=== PATIENT | male | born 1975 | race Caucasian/White ===

== ENCOUNTER → 2023-08-22 13:22 | Outpatient (CLI) | payer OTHER, BC, SELFPAY ==
--- NOTE | ~2023-08-22 | MR_ITS ---
EXAMINATION: MR foot LT wo con DATE: 08/22/2023 14:04 INDICATION: Ganglion cyst with chronic pain. Enlarging lump at the medial left heel TECHNIQUE: Magnetic resonance imaging (MRI) of the left ankle was performed without intravenous contr ast. Sequences included sagittal, coronal, and axial proton-density weighted fast spin echo without a nd with fat saturation. COMPARISON: None. FINDINGS: Medial ankle ligaments: Deep and superficial deltoid ligaments as well as the spring ligament are normal. Lateral ankle ligaments: The anterior and posterior inferior tibiofibular ligaments are normal. The anterior talofibular, calc aneofibular and posterior talofibular ligaments are normal. Tendons: Achilles tendon is normal. The peroneus longus and brevis tendons are normal. The tibialis anterior a nd extensor hallucis longus and extensor digitorum longus tendons are normal. The tibialis posterior, flexor digitorum longus and flexor hallucis longus tendons are normal. Plantar fascia: Mild acute on chronic plantar fasciitis with small plantar calcaneal spur with minimal marrow edema a t the base of the spur and mild thickening with mild increased signal at the proximal aspect of the c entral component of the plantar aponeurosis. Bones/other: Bone alignment is normal. Section at the plantar aspect of the posterior calcaneus there is normal ma rrow signal throughout. No fracture or pathologic marrow replacing process. Joint spaces are normal. There is a 10 x 8 x 6 mm lesion with thin sclerotic peripheral margin and increased signal of less th an simple fluid intensity centrally located in the superficial subcutaneous tissues at the medial rig ht ankle. The absence of intravenous contrast unable to assess whether this lesion is solid or cystic . Fluid: Physiologic amount fluid in the joint spaces. IMPRESSION: 1. 10 x 8 x 6 mm hyperintense lesion in the superficial subcutaneous tissues at the region of concern at the medial left heel. This could be cystic such as epidermoid cyst. Location would be very unusua l for a ganglion cyst. Alternatively this could represent a solid neoplasm such as schwannoma or tino pheral nerve sheath tumor. 2. Mild acute on chronic plantar fasciitis. Reviewed, dictated and finalized at location A. IMPRESSION: 1. 10 x 8 x 6 mm hyperintense lesion in the superficial subcutaneous tissues at the region of concern at the medial left heel. This could be cystic such as ep idermoid cyst. Location would be very unusual for a ganglion cyst. Alternativel y this could represent a solid neoplasm such as schwannoma or peripheral nerve sheath tumor. 2. Mild acute on chronic plantar fasciitis.
== END ==
PROVIDERS: PCP Podiatrist Foot & Ankle Surgery; Visit Provider Podiatrist Foot & Ankle Surgery
DX: M67.472 Ganglion, left ankle and foot (principal); M72.2 Plantar fascial fibromatosis
CPT/HCPCS: 73718

== ENCOUNTER 2025-01-17 07:00 | Outpatient (NON) | payer OTHER, SELFPAY ==
--- OUTSIDE RECORDS SUMMARY | 2025-01-20 09:38 | XMS_ITS | Data Portability ---
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 Plan of Treatment Reminders Order Date Submit Date Provider Last Modified By Organization Details Last Modified Time Details Appointments None recorded. Lab FSH (follicle -stimulat ing hormone), serum 024 [facility] (Lab), [address] [place], [address], 4 08:31:23 lh (luteiniz ing hormone), serum 024 [facility] (Lab), [address] [place], [address], 4 08:31:24 prolactin , serum 024 [facility] (Lab), [address] [place], [address], 4 08:31:24 TSH, serum or plasma 024 [id number] [facility] (Lab), [address] [place], [address], 4 17:32:23 T4, free, serum 024 [id number] [facility] (Lab), [address] [place], [address], 4 17:32:23 lipid panel, serum 024 [facility] (Lab), [address] [place], [address], 4 14:49:31 CMP, serum or plasma [facility] (Lab), [address] [place], [address], 4 14:49:33 magnesium , serum or plasma [id number] (Lab), [address] [place], [address], 4 17:32:23 vitamin B12, serum [id number] (Lab), [address] [place], [address], 4 17:32:23 CBC w/ auto diff [id number] (Lab), [address] [place], [address], 4 17:32:23 PSA, serum or plasma [id number] [place] [address] (Lab), [address] [place], [address], 4 17:32:23 testoster one, free + total, serum [id number] (Lab), [address] [place], [address], 4 17:32:22 Referral None recorded. Procedures None recorded. Surgeries None recorded. Imaging None recorded. Medication Orders None recorded. Patient TargetsNo targets recorded. Patient Instructions Encounter Date Encounter Id Patient Instructions Last Modified By Organization Details Last Modified Time 06/12/2023 [id number] risk assessment* [email or web address] Not availabl e 06/12/2023 15:01:12 INFLUENZA VACCIN [...] SCREENING Not indicated GLUCOSE SCREENING LIPID SCREENING [id number] Not available 06/12/2023 14:50:01 Adult health examination [...] current Rx and follow-up in six months. Not available 06/12/2023 15:00:58 02/07/2024 [id number] Obstructive slee p apnea, GERD, testicular hypofunction [...] have occurred. Not available 02/07/2024 11:55:10 08/07/2024 [id number] risk assessment* [email or web address] Not availabl e 08/07/2024 12:02:22 INFLUENZA VACCIN [...] SCREENING Not indicated GLUCOSE SCREENING LIPID SCREENING [id number] Not available 08/07/2024 11:43:06 Wellness evaluation risk [...] recognize, using context, where substitutions have occurred. [email or web address] Not available 08/07/2024 12:02:10 Reason for Referral [...] cteri stics have been deter mined by [facility]. It has not been clear ed or appro mayi by the FDA. This assay has been valid ated pursu ant to the CLIA regul ation s and is used for clini sofiya purpo ses. Not Available [address], [address], 05/24/2022 15:56:02 05/21/20 22 05/24/2022 TESTO STERO NE, FREE (DIAL YSIS) AND TOTAL ,MS testosterone , free 56.9 pg/mL 35.0-1 55.0 (Note ) This test was devel oped and its kassi tical perfo rmanc e rashi cteri stics have been deter mined by [facility]. It has not been clear ed or appro mayi by the FDA. This assay has been valid ated pursu ant to the CLIA regul ation s and is used for clini osfiya purpo ses. MYA med fusio n [address] [facility] [address] [facility] [address] [phone] Alexi winter MD Not Available [address], [address], 05/24/2022 15:56:02 05/21/20 22 05/24/2022 CBC (INCL UDES DIFF/ PLT) white blood cell count 4.8 thous and/u L 3.8-10 .8 normal Not Available [address], [address], 05/24/2022 15:56:01 05/21/20 22 05/24/2022 CBC (INCL UDES DIFF/ PLT) red blood cell count 5.11 francisco on/uL 4.20-5 .80 normal Not Available [address] [place], [address], 05/24/2022 15:56:01 05/21/20 22 05/24/2022 CBC (INCL UDES DIFF/ PLT) hemoglobin 15.3 g/dL 13.2-1 7.1 normal Not Available [address], [address], 05/24/2022 15:56:01 05/21/20 22 05/24/2022 CBC (INCL UDES DIFF/ PLT) hematocrit 45.3 % 38.5-5 0.0 normal Not Available [address], [address], 05/24/2022 15:56:01 05/21/20 22 05/24/2022 CBC (INCL UDES DIFF/ PLT) MCV 88.6 fL 80.0-1 00.0 normal Not Available [address], [address], 05/24/2022 15:56:01 05/21/20 22 05/24/2022 CBC (INCL UDES DIFF/ PLT) MCH 29.9 pg 27.0-3 3.0 normal Not Available [address], [address], 05/24/2022 15:56:01 05/21/20 22 05/24/2022 CBC (INCL UDES DIFF/ PLT) MCHC 33.8 g/dL 32.0-3 6.0 normal Not Available [address], [address], 05/24/2022 15:56:01 05/21/20 22 05/24/2022 CBC (INCL UDES DIFF/ PLT) RDW 13.7 % 11.0-1 5.0 normal Not Available [address], [address], 05/24/2022 15:56:01 05/21/20 22 05/24/2022 CBC (INCL UDES DIFF/ PLT) platelet count 280 thous and/u L 140-40 0 normal Not Available [address], [address], 05/24/2022 15:56:01 05/21/20 22 05/24/2022 CBC (INCL UDES DIFF/ PLT) MPV 10.5 fL 7.5-12 .5 normal Not Available [address], [address], 05/24/2022 15:56:01 05/21/20 22 05/24/2022 CBC (INCL UDES DIFF/ PLT) absolute neutrophils 2606 cells /uL 1500-7 800 normal Not Available [address], [address], 05/24/2022 15:56:01 05/21/20 22 05/24/2022 CBC (INCL UDES DIFF/ PLT) absolute lymphocytes 1546 cells /uL 850-39 00 normal Not Available [address], [address], 05/24/2022 15:56:01 05/21/20 22 05/24/2022 CBC (INCL UDES DIFF/ PLT) absolute monocytes 480 cells /uL 200-95 0 normal Not Available [address], [address], 05/24/2022 15:56:01 05/21/20 22 05/24/2022 CBC (INCL UDES DIFF/ PLT) absolute eosinophils 158 cells /uL 15-500 normal Not Available [address], [address], 05/24/2022 15:56:01 05/21/20 22 05/24/2022 CBC (INCL UDES DIFF/ PLT) absolute basophils 10 cells /uL 0-200 normal Not Available [address], [address], 05/24/2022 15:56:01 05/21/20 22 05/24/2022 CBC (INCL UDES DIFF/ PLT) neutrophils 54.3 % normal Not Available [address], [address], 05/24/2022 15:56:01 05/21/20 22 05/24/2022 CBC (INCL UDES DIFF/ PLT) lymphocytes 32.2 % normal Not Available [address], [address], 05/24/2022 15:56:01 05/21/20 22 05/24/2022 CBC (INCL UDES DIFF/ PLT) monocytes 10.0 % normal Not Available [address], [address], 05/24/2022 15:56:01 05/21/20 22 05/24/2022 CBC (INCL UDES DIFF/ PLT) eosinophils 3.3 % normal Not Available [address], [address], 05/24/2022 15:56:01 05/21/20 22 05/24/2022 CBC (INCL UDES DIFF/ PLT) basophils 0.2 % normal Not Available [address], [address], 05/24/2022 15:56:01 05/21/20 22 05/24/2022 COMPR EHENS [place] METAB OLIC PANEL carbon dioxide 29 mmol/ L 20-32 normal Not Available [address], [address], 05/24/2022 15:56:00 05/21/20 22 05/24/2022 COMPR EHENS [place] METAB OLIC PANEL calcium 9.7 mg/dL 8.6-10 .3 normal Not Available [address], [address], 05/24/2022 15:56:00 05/21/20 22 05/24/2022 COMPR EHENS [place] METAB OLIC PANEL protein, total 7.4 g/dL 6.1-8. 1 normal Not Available [address], [address], 05/24/2022 15:56:00 05/21/20 22 05/24/2022 COMPR EHENS [place] METAB OLIC PANEL albumin 4.3 g/dL 3.6-5. 1 normal Not Available [address], [address], 05/24/2022 15:56:00 05/21/20 22 05/24/2022 COMPR EHENS [place] METAB OLIC PANEL globulin 3.1 g/dL_ (calc ) 1.9-3. 7 normal Not Available [address], [address], 05/24/2022 15:56:00 05/21/20 22 05/24/2022 COMPR EHENS [place] METAB OLIC PANEL albumin/glob ulin ratio 1.4 (calc ) 1.0-2. 5 normal Not Available [address], [address], 05/24/2022 15:56:00 05/21/20 22 05/24/2022 COMPR EHENS [place] METAB OLIC PANEL bilirubin, total 0.6 mg/dL 0.2-1. 2 normal Not Available [address], [address], 05/24/2022 15:56:00 05/21/20 22 05/24/2022 COMPR EHENS [place] METAB OLIC PANEL alkaline phosphatase 94 U/L 36-130 normal Not Available [address], [address], 05/24/2022 15:56:00 05/21/20 22 05/24/2022 COMPR EHENS [place] METAB OLIC PANEL AST 29 U/L 10-40 normal Not Available [address], [address], 05/24/2022 15:56:00 05/21/20 22 05/24/2022 COMPR EHENS [place] METAB OLIC PANEL ALT 44 U/L 9-46 normal Not Available [address], [address], 05/24/2022 15:56:00 05/21/20 22 05/24/2022 COMPR EHENS [place] METAB OLIC PANEL glucose 97 mg/dL 65-99 normal Fasti ng refer ence inter rufina Not Available [address], [address], 05/24/2022 15:56:00 05/21/20 22 05/24/2022 COMPR EHENS [place] METAB OLIC PANEL urea nitrogen (BUN) 20 mg/dL 7-25 normal Not Available [address], [address], 05/24/2022 15:56:00 05/21/20 22 05/24/2022 COMPR EHENS [place] METAB OLIC PANEL creatinine 1.01 mg/dL 0.60-1 .35 normal Not Available [address], [address], 05/24/2022 15:56:00 05/21/20 22 05/24/2022 COMPR EHENS [place] METAB OLIC PANEL eGFR non-afr. greenlandic 88 mL/mi n/1.7 3m2 > or = 60 normal Not Available [address], [address], 05/24/2022 15:56:00 05/21/20 22 05/24/2022 COMPR EHENS [place] METAB OLIC PANEL eGFR 101 mL/mi n/1.7 3m2 > or = 60 normal Not Available [address], [address], 05/24/2022 15:56:00 05/21/20 22 05/24/2022 COMPR EHENS [place] METAB OLIC PANEL BUN/creatini ne ratio not applic able (calc ) 6-22 Not Available [address], [address], 05/24/2022 15:56:00 05/21/20 22 05/24/2022 COMPR EHENS [place] METAB OLIC PANEL sodium 138 mmol/ L 135-14 6 normal Not Available [address], [address], 05/24/2022 15:56:00 05/21/20 22 05/24/2022 COMPR EHENS [place] METAB OLIC PANEL potassium 4.8 mmol/ L 3.5-5. 3 normal Not Available [address], [address], 05/24/2022 15:56:00 05/21/20 22 05/24/2022 COMPR EHENS [place] METAB OLIC PANEL chloride 102 mmol/ L 98-110 normal Not Available [address], [address], 05/24/2022 15:56:00 05/21/20 22 05/24/2022 LIPID PANEL , STAND JEANNETTE cholesterol, total 211 mg/dL <200 high Not Available [address], [address], 05/24/2022 15:55:59 05/21/20 22 05/24/2022 LIPID PANEL , STAND JEANNETTE HDL cholesterol 51 mg/dL > or = 40 normal Not Available [address], [address], 05/24/2022 15:55:59 05/21/20 22 05/24/2022 LIPID PANEL , STAND JEANNETTE triglyceride s 328 mg/dL <150 high If a non-f astin g speci men was colle cted, consi pearl repea t trigl yceri de testi ng on a fasti ng speci men if clini laci indic ated. Jareth díaz et al. J. of Clin. Lipid ol. 2015; 9:129 -169. Not Available [facility] [address] [place], [address], 05/24/2022 15:55:59 05/21/20 22 05/24/2022 LIPID PANEL [...] 2061- 2068 (http ://ed ucati on.Qu Nael [employer]. com/f aq/FA Q164) Not Available [facility] [address] [place], [address], 05/24/2022 15:55:59 05/21/20 22 05/24/2022 LIPID PANEL , STAND JEANNETTE chol/HDLC ratio 4.1 (calc ) <5.0 normal Not Available [facility] [address] [place], [address], 05/24/2022 15:55:59 05/21/20 22 05/24/2022 LIPID PANEL , STAND JEANNETTE non HDL cholesterol 160 mg/dL _(sofiya c) <130 high For patie nts with diabe viola plus 1 major ASCVD risk facto r, treat ing to a non-H DL-C goal of <100 mg/dL (LDL- C of <70 mg/dL ) is consi dered a thera pesandrai c optio n. Not Available [facility] [address] [place], [address], 05/24/2022 15:55:59 12/08/19 23 12/11/2022 TESTO STERO [...] e refer to https ://ed ucati on.qu Metricly. Habbits/f aq/FA Q113 (This link is being provi ded for [...] sofiya purpo ses. Not Available [facility] [address] [address], [place], [address], 12/11/2022 15:36:54 12/08/19 23 12/11/2022 TESTO STERO [...] purpo ses. MDF med fusvikki n [address] [facility] [address] [place] [address] [phone] Alexi winter MD Not Available Immediately [address], [address], 12/11/2022 15:36:54 12/08/19 23 12/11/2022 PSA, TOTAL [...] This test was perfo rmed using the [employer] chemi lumin escen t metho d. Value s obtai lynn from diffe rent assay metho ds canno t be used inter clark eably . PSA level s, regar dless of value , shoul d not be inter prete d as absol [place] evide nce of the prese nce or absen ce of disea se. Not Available [address], [address], 12/11/2022 15:36:53 12/08/19 23 12/11/2022 VITAM IN B12 vitamin B12 683 pg/mL 200-11 00 normal Not Available [facility] [address] [place], [address], 12/11/2022 15:36:53 12/08/19 23 12/11/2022 CBC (INCL UDES DIFF/ PLT) white blood cell count 5.2 thous and/u L 3.8-10 .8 normal Not Available [address] [place], [address], 12/11/2022 15:36:52 12/08/19 23 12/11/2022 CBC (INCL UDES DIFF/ PLT) red blood cell count 5.16 francisco on/uL 4.20-5 .80 normal Not Available [address], [address], 12/11/2022 15:36:52 12/08/19 23 12/11/2022 CBC (INCL UDES DIFF/ PLT) hemoglobin 15.4 g/dL 13.2-1 7.1 normal Not Available [address], [address], 12/11/2022 15:36:52 12/08/19 23 12/11/2022 CBC (INCL UDES DIFF/ PLT) hematocrit 46.8 % 38.5-5 0.0 normal Not Available [address], [address], 12/11/2022 15:36:52 12/08/19 23 12/11/2022 CBC (INCL UDES DIFF/ PLT) MCV 90.7 fL 80.0-1 00.0 normal Not Available [address], [address], 12/11/2022 15:36:52 12/08/19 23 12/11/2022 CBC (INCL UDES DIFF/ PLT) MCH 29.8 pg 27.0-3 3.0 normal Not Available [address], [address], 12/11/2022 15:36:52 12/08/19 23 12/11/2022 CBC (INCL UDES DIFF/ PLT) MCHC 32.9 g/dL 32.0-3 6.0 normal Not Available [address], [address], 12/11/2022 15:36:52 12/08/19 23 12/11/2022 CBC (INCL UDES DIFF/ PLT) RDW 13.3 % 11.0-1 5.0 normal Not Available [address], [place], [address], 12/11/2022 15:36:52 12/08/19 23 12/11/2022 CBC (INCL UDES DIFF/ PLT) platelet count 290 thous and/u L 140-40 0 normal Not Available [address], [address], 12/11/2022 15:36:52 12/08/19 23 12/11/2022 CBC (INCL UDES DIFF/ PLT) MPV 10.9 fL 7.5-12 .5 normal Not Available [facility] [address], [address], 12/11/2022 15:36:52 12/08/19 23 12/11/2022 CBC (INCL UDES DIFF/ PLT) absolute neutrophils 2538 cells /uL 1500-7 800 normal Not Available [address], [address], 12/11/2022 15:36:52 12/08/19 23 12/11/2022 CBC (INCL UDES DIFF/ PLT) absolute lymphocytes 1997 cells /uL 850-39 00 normal Not Available [address], [address], 12/11/2022 15:36:52 12/08/19 23 12/11/2022 CBC (INCL UDES DIFF/ PLT) absolute monocytes 567 cells /uL 200-95 0 normal Not Available [address], [address], 12/11/2022 15:36:52 12/08/19 23 12/11/2022 CBC (INCL UDES DIFF/ PLT) absolute eosinophils 88 cells /uL 15-500 normal Not Available [address], [address], 12/11/2022 15:36:52 12/08/19 23 12/11/2022 CBC (INCL UDES DIFF/ PLT) absolute basophils 10 cells /uL 0-200 normal Not Available [address], [address], 12/11/2022 15:36:52 12/08/19 23 12/11/2022 CBC (INCL UDES DIFF/ PLT) neutrophils 48.8 % normal Not Available [address], [address], 12/11/2022 15:36:52 12/08/19 23 12/11/2022 CBC (INCL UDES DIFF/ PLT) lymphocytes 38.4 % normal Not Available [address], [address], 12/11/2022 15:36:52 12/08/19 23 12/11/2022 CBC (INCL UDES DIFF/ PLT) monocytes 10.9 % normal Not Available [address], [address], 12/11/2022 15:36:52 12/08/19 23 12/11/2022 CBC (INCL UDES DIFF/ PLT) eosinophils 1.7 % normal Not Available [address], [address], 12/11/2022 15:36:52 12/08/19 23 12/11/2022 CBC (INCL UDES DIFF/ PLT) basophils 0.2 % normal Not Available [address], [address], 12/11/2022 15:36:52 12/08/19 23 12/11/2022 COMPR EHENS [place] METAB OLIC PANEL glucose 98 mg/dL 65-99 normal Fasti ng refer ence inter rufina Not Available [address], [address], 12/11/2022 15:36:52 12/08/19 23 12/11/2022 COMPR EHENS [place] METAB OLIC PANEL urea nitrogen (BUN) 19 mg/dL 7-25 normal Not Available [address] [address] [place], [address], 12/11/2022 15:36:52 12/08/19 23 12/11/2022 COMPR EHENS [place] METAB OLIC PANEL creatinine 1.01 mg/dL 0.60-1 .29 normal Not Available [address] [address] [place], [address], 12/11/2022 15:36:52 12/08/19 23 12/11/2022 COMPR EHENS [...] kdoqi /gfr% 5Fcal culat or Not Available [address] [address] [place], [address], 12/11/2022 15:36:52 12/08/19 23 12/11/2022 COMPR EHENS [place] METAB OLIC PANEL BUN/creatini ne ratio not applic able (calc ) 6-22 Not Available [address], [address], 12/11/2022 15:36:52 12/08/19 23 12/11/2022 COMPR EHENS [place] METAB OLIC PANEL sodium 139 mmol/ L 135-14 6 normal Not Available [address], [address], 12/11/2022 15:36:52 12/08/19 23 12/11/2022 COMPR EHENS [place] METAB OLIC PANEL potassium 4.7 mmol/ L 3.5-5. 3 normal Not Available [address] [address] [place], [address], 12/11/2022 15:36:52 12/08/19 23 12/11/2022 COMPR EHENS [place] METAB OLIC PANEL chloride 104 mmol/ L 98-110 normal Not Available [address], [address], 12/11/2022 15:36:52 12/08/19 23 12/11/2022 COMPR EHENS [place] METAB OLIC PANEL carbon dioxide 25 mmol/ L 20-32 normal Not Available [address], [place], [address], 12/11/2022 15:36:52 12/08/19 23 12/11/2022 COMPR EHENS [place] METAB OLIC PANEL calcium 10.2 mg/dL 8.6-10 .3 normal Not Available [address], [address], 12/11/2022 15:36:52 12/08/19 23 12/11/2022 COMPR EHENS [place] METAB OLIC PANEL protein, total 7.5 g/dL 6.1-8. 1 normal Not Available [address], [address], 12/11/2022 15:36:52 12/08/19 23 12/11/2022 COMPR EHENS [place] METAB OLIC PANEL albumin 4.6 g/dL 3.6-5. 1 normal Not Available [address], [address], 12/11/2022 15:36:52 12/08/19 23 12/11/2022 COMPR EHENS [place] METAB OLIC PANEL globulin 2.9 g/dL_ (calc ) 1.9-3. 7 normal Not Available [address], [address], 12/11/2022 15:36:52 12/08/19 23 12/11/2022 COMPR EHENS [place] METAB OLIC PANEL albumin/glob ulin ratio 1.6 (calc ) 1.0-2. 5 normal Not Available [address], [address], 12/11/2022 15:36:52 12/08/19 23 12/11/2022 COMPR EHENS [place] METAB OLIC PANEL bilirubin, total 0.5 mg/dL 0.2-1. 2 normal Not Available [address], [address], 12/11/2022 15:36:52 12/08/19 23 12/11/2022 COMPR EHENS [place] METAB OLIC PANEL alkaline phosphatase 95 U/L 36-130 normal Not Available [address], [address], 12/11/2022 15:36:52 12/08/19 23 12/11/2022 COMPR EHENS [place] METAB OLIC PANEL AST 34 U/L 10-40 normal Not Available [address], [address], 12/11/2022 15:36:52 12/08/19 23 12/11/2022 COMPR EHENS [place] METAB OLIC PANEL ALT 55 U/L 9-46 high Not Available [address], [address], 12/11/2022 15:36:52 12/08/19 23 12/11/2022 MAGNE SIUM magnesium 2.2 mg/dL 1.5-2. 5 normal Not Available [address], [address], 12/11/2022 15:36:51 12/08/19 23 12/11/2022 LIPID PANEL , STAND JEANNETTE cholesterol, total 204 mg/dL <200 high Not Available [address], [address], 12/11/2022 15:36:51 12/08/19 23 12/11/2022 LIPID PANEL , STAND JEANNETTE HDL cholesterol 52 mg/dL > or = 40 normal Not Available [address], [address], 12/11/2022 15:36:51 12/08/19 23 12/11/2022 LIPID PANEL , STAND JEANNETTE triglyceride s 248 mg/dL <150 high If a non-f astin g speci men was colle cted, consi pearl repea t trigl yceri de testi ng on a fasti ng speci men if clini laci indic ated. Jareth díaz et al. J. of Clin. Lipid ol. 2015; 9:129 -169. Not Available [address], [address], 12/11/2022 15:36:51 12/08/19 23 12/11/2022 LIPID PANEL [...] 2061- 2068 (http ://ed ucati on.Qu estDi LearnBo[employer]. com/f aq/FA Q164) Not Available [address], [address], 12/11/2022 15:36:51 12/08/19 23 12/11/2022 LIPID PANEL , STAND JEANNETTE chol/HDLC ratio 3.9 (calc ) <5.0 normal Not Available [address], [address], 12/11/2022 15:36:51 12/08/19 23 12/11/2022 LIPID PANEL , STAND JEANNETTE non HDL cholesterol 152 mg/dL _(sofiya c) <130 high For patie nts with diabe viola plus 1 major ASCVD risk facto r, treat ing to a non-H DL-C goal of <100 mg/dL (LDL- C of <70 mg/dL ) is consi dered a thera peuti c optio n. Not Available [address], [address], 12/11/2022 15:36:51 02/19/20 24 02/22/2024 LIPID PANEL , STAND JEANNETTE cholesterol, total 190 mg/dL <200 normal Not Available [address], [address], 02/22/2024 14:49:30 02/19/20 24 02/22/2024 LIPID PANEL , STAND JEANNETTE HDL cholesterol 56 mg/dL > or = 40 normal Not Available [address], [address], 02/22/2024 14:49:30 02/19/20 24 02/22/2024 LIPID PANEL , STAND JEANNETTE triglyceride s 140 mg/dL <150 normal Not Available [address], [address], 02/22/2024 14:49:30 02/19/20 24 02/22/2024 LIPID PANEL , STAND JEANNETTE LDL-choleste rol 109 mg/dL _(sofiya c) high Refer ence range : <100 Ana able range <100 mg/dL for prima ry preve ntion ; <70 mg/dL for patie nts with CHD or diabe tic patie nts with > or = 2 CHD risk facto rs. LDL-C is now calcu lated using the [facility] [employer] kins sophia tompkins n, which is a valid ated novel metho d provi ding wally r accur acy than the Fried nelly equat ion in the estim ation of LDL-C . Virgie n SS et al. IDANIA. 2013; 310(2 9): 2061- 2068 (http ://ed ucati on.Annelise Nayak daisykellie [employer]. com/f aq/FA Q164) Not Available [address], [address], 02/22/2024 14:49:30 02/19/20 24 02/22/2024 LIPID PANEL , STAND JEANNETTE chol/HDLC ratio 3.4 (calc ) <5.0 normal Not Available [address], [address], 02/22/2024 14:49:30 02/19/20 24 02/22/2024 LIPID PANEL , STAND JEANNETTE non HDL cholesterol 134 mg/dL _(sofiya c) <130 high For patie nts with diabe viola plus 1 major ASCVD risk facto r, treat ing to a non-H DL-C goal of <100 mg/dL (LDL- C of <70 mg/dL ) is consi alhajid a lauren gonzales optio n. Not Available [address], [address], 02/22/2024 14:49:30 02/19/20 24 02/22/2024 MAGNE SIUM magnesium 2.1 mg/dL 1.5-2. 5 normal Not Available [address] [address] [place], [address], 02/22/2024 14:49:32 02/19/20 24 02/22/2024 COMPR EHENS [place] METAB OLIC PANEL glucose 96 mg/dL 65-99 normal Fasti ng refer ence inter rufina Not Available [address] [address] [place], [address], 02/22/2024 14:49:33 02/19/20 24 02/22/2024 COMPR EHENS [place] METAB OLIC PANEL urea nitrogen (BUN) 13 mg/dL 7-25 normal Not Available [address], [address], 02/22/2024 14:49:33 02/19/20 24 02/22/2024 COMPR EHENS [place] [facility] PAN[facility] creatinine 0.92 mg/dL 0.60-1 .29 normal Not Available [address], [address], 02/22/2024 14:49:33 02/19/20 24 02/22/2024 COMPR [facility] [place] [facility] PANEL eGFR 102 mL/mi n/1.7 3m2 > or = 60 normal Not Available [address], [address], 02/22/2024 14:49:33 02/19/20 24 02/22/2024 COMPR [facility] [place] [facility] PANEL BUN/creatini ne ratio SEE NOTE: (calc ) 6-22 Not Repor cara: BUN and Creat inine are withi n refer ence range . Not Available [address], [address], 02/22/2024 14:49:33 02/19/20 24 02/22/2024 COMPR [facility]ENS [place] [facility] PANEL sodium 138 mmol/ L 135-14 6 normal Not Available [address], [address], 02/22/2024 14:49:33 02/19/20 24 02/22/2024 COMPR [facility] [place] [facility] PANEL potassium 4.4 mmol/ L 3.5-5. 3 normal Not Available [address], [address], 02/22/2024 14:49:33 02/19/20 24 02/22/2024 COMPR EHENS [place] [facility] PANEL chloride 105 mmol/ L 98-110 normal Not Available [address] [place], [address], 02/22/2024 14:49:33 02/19/20 24 02/22/2024 COMPR EHENS [place] [facility] PANEL carbon dioxide 22 mmol/ L 20-32 normal Not Available [address], [address], 02/22/2024 14:49:33 02/19/20 24 02/22/2024 COMPR [facility] [place] [facility] PANEL calcium 9.9 mg/dL 8.6-10 .3 normal Not Available [address], [address], 02/22/2024 14:49:33 02/19/20 24 02/22/2024 COMPR [facility] [place] [facility] PAN[facility] protein, total 7.8 g/dL 6.1-8. 1 normal Not Available [address], [address], 02/22/2024 14:49:33 02/19/20 24 02/22/2024 COMPR [facility] [place] [facility] PANEL albumin 4.5 g/dL 3.6-5. 1 normal Not Available [address], [address], 02/22/2024 14:49:33 02/19/20 24 02/22/2024 COMPR [facility] [place] [facility] PANEL globulin 3.3 g/dL_ (calc ) 1.9-3. 7 normal Not Available [address], [address], 02/22/2024 14:49:33 02/19/20 24 02/22/2024 COMPR [facility] [place] [facility] PANEL albumin/glob ulin ratio 1.4 (calc ) 1.0-2. 5 normal Not Available [address], [address], 02/22/2024 14:49:33 02/19/20 24 02/22/2024 COMPR [facility] [place] [facility] PANEL bilirubin, total 0.3 mg/dL 0.2-1. 2 normal Not Available [address], [address], 02/22/2024 14:49:33 02/19/20 24 02/22/2024 COMPR EHENS [place] [facility] PANEL alkaline phosphatase 107 U/L 36-[address] [facility] [email or web address] [address] [address] [place], [address], 02/22/2024 14:49:33 02/19/20 24 02/22/2024 COMPR EHENS [place] METAB OLIC PANEL AST 30 U/L 10-40 normal Not Available [address], [address], 02/22/2024 14:49:33 02/19/20 24 02/22/2024 COMPR EHENS AUTS[place] METAB OLIC PANEL ALT 47 U/L 9-46 high Not Available [address], [address], 02/22/2024 14:49:33 02/19/20 24 02/22/2024 CBC (INCL UDES DIFF/ PLT) white blood cell count 5.8 thous and/u L 3.8-10 .8 normal Not Available [address], [address], 02/22/2024 14:49:34 02/19/20 24 02/22/2024 CBC (INCL UDES DIFF/ PLT) red blood cell count 4.97 francisco on/uL 4.20-5 .80 normal Not Available [address], [address], 02/22/2024 14:49:34 02/19/20 24 02/22/2024 CBC (INCL UDES DIFF/ PLT) hemoglobin 15.2 g/dL 13.2-1 7.1 normal Not Available [address], [address], 02/22/2024 14:49:34 02/19/20 24 02/22/2024 CBC (INCL UDES DIFF/ PLT) hematocrit 46.2 % 38.5-5 0.0 normal Not Available [address], [address], 02/22/2024 14:49:34 02/19/20 24 02/22/2024 CBC (INCL UDES DIFF/ PLT) MCV 93.0 fL 80.0-1 00.0 normal Not Available [address], [address], 02/22/2024 14:49:34 02/19/20 24 02/22/2024 CBC (INCL UDES DIFF/ PLT) MCH 30.6 pg 27.0-3 3.0 normal Not Available [address], [address], 02/22/2024 14:49:34 02/19/20 24 02/22/2024 CBC (INCL UDES DIFF/ PLT) MCHC 32.9 g/dL 32.0-3 6.0 normal Not Available [address], [address], 02/22/2024 14:49:34 02/19/20 24 02/22/2024 CBC (INCL UDES DIFF/ PLT) RDW 14.2 % 11.0-1 5.0 normal Not Available [address], [address], 02/22/2024 14:49:34 02/19/20 24 02/22/2024 CBC (INCL UDES DIFF/ PLT) platelet count 246 thous and/u L 140-40 0 normal Not Available [address], [address], 02/22/2024 14:49:34 02/19/20 24 02/22/2024 CBC (INCL UDES DIFF/ PLT) MPV 11.0 fL 7.5-12 .5 normal Not Available [address], [address], 02/22/2024 14:49:34 02/19/20 24 02/22/2024 CBC (INCL UDES DIFF/ PLT) absolute neutrophils 3271 cells /uL 1500-7 800 normal Not Available [address], [address], 02/22/2024 14:49:34 02/19/20 24 02/22/2024 CBC (INCL UDES DIFF/ PLT) absolute lymphocytes 1827 cells /uL 850-39 00 normal Not Available [address], [address], 02/22/2024 14:49:34 02/19/20 24 02/22/2024 CBC (INCL UDES DIFF/ PLT) absolute monocytes 539 cells /uL 200-95 0 normal Not Available [address], [address], 02/22/2024 14:49:34 02/19/20 24 02/22/2024 CBC (INCL UDES DIFF/ PLT) absolute eosinophils 151 cells /uL 15-500 normal Not Available [address], [address], 02/22/2024 14:49:34 02/19/20 24 02/22/2024 CBC (INCL UDES DIFF/ PLT) absolute basophils 12 cells /uL 0-200 normal Not Available [address], [address], 02/22/2024 14:49:34 02/19/20 24 02/22/2024 CBC (INCL UDES DIFF/ PLT) neutrophils 56.4 % normal Not Available [address] [place], [address], 02/22/2024 14:49:34 02/19/20 24 02/22/2024 CBC (INCL UDES DIFF/ PLT) lymphocytes 31.5 % normal Not Available [address], [address], 02/22/2024 14:49:34 02/19/20 24 02/22/2024 CBC (INCL UDES DIFF/ PLT) monocytes 9.3 % normal Not Available [facility] [address], [address], 02/22/2024 14:49:34 02/19/20 24 02/22/2024 CBC (INCL UDES DIFF/ PLT) eosinophils 2.6 % normal Not Available [address], [address], 02/22/2024 14:49:34 02/19/20 24 02/22/2024 CBC (INCL UDES DIFF/ PLT) basophils 0.2 % normal Not Available [address], [address], 02/22/2024 14:49:34 02/19/20 24 02/22/2024 T4, FREE T4, free 0.8 NG/dL 0.8-1. 8 normal Not Available [address], [address], 02/22/2024 14:49:35 02/19/20 24 02/22/2024 VITAM IN B12 vitamin B12 451 pg/mL 200-11 00 normal Not Available [address], [address], 02/22/2024 14:49:36 02/19/20 24 02/22/2024 PSA, TOTAL [...] not be inter prete d as absol [place] evide nce of the prese nce or absen ce of disea se. Not Available [facility] [address] [address] [place], [address], 02/22/2024 14:49:37 02/19/20 24 02/22/2024 TSH TSH 1.16 mIU/L 0.40-4 .50 normal Not Available [facility] [address] [address] [place], [address], 02/22/2024 14:49:38 02/19/20 24 02/22/2024 TESTO STERO [...] refer to https ://ed ucati on.qu nikitadi [employer]. com/f aq/FA V725 (This link is being provi ded for infor mary nal/e ducat ional purpo ses only. ) (Note ) This test was devel oped and its kassi tical perfo rmanc e rashi cteri stics have been deter mined by [employer]. It has not been clear ed or appro mayi by the FDA. This assay has been valid ated pursu ant to the CLIA regul ation s and is used for clini sofiya purpo ses. Not Available [address], [address], 02/22/2024 14:49:39 02/19/20 24 02/22/2024 TESTO STERO NE, FREE (DIAL YSIS) AND TOTAL ,MS testosterone , free 37 pg/mL 35.0-1 55.0 (Note ) This test was devel oped and its kassi tical perfo rmanc e rashi cteri stics have been deter mined by [employer]. It has not been clear ed or appro mayi by the FDA. This assay has been valid ated pursu ant to the CLIA regul ation s and is used for clini sofiya purpo ses. MDF med fusio n [address] [facility] [address] [facility] [address] [phone] [facility] zoey Gupta MD, PhD Not Available Immediately [address] [address] [place], [address], 02/22/2024 14:49:39 08/07/20 24 08/08/2024 FSH FSH 5.1 mIU/m L 1.4-12 .8 normal Not Available Immediately [address] [place], [address], 08/08/2024 08:31:23 08/07/20 24 08/08/2024 LH LH 2.8 mIU/m L 1.5-9. 3 normal Not Available Immediately [facility] [address] [address] [place], [address], 08/08/2024 08:31:24 08/07/20 24 08/08/2024 PROLA CTIN prolactin 5.4 NG/mL 2.0-18 .0 normal Not Available Immediately [address] [place], [address], 08/08/2024 08:31:24 11/18/20 24 11/25/2024 BIOAV AILAB LE + FREE TESTO ST % free testosterone (dialysi 2.0 % This test was devel oped and its perfo rmanc e rashi cteri stics deter mined by [employer]. It has not been clear ed or appro mayi by the Food and Drug Admin istra tion. Refer ence Range : Adult Males : 1.5 - 3.2 Not Available [facility] (Lab) [address] [place], [address], 11/25/2024 16:08:51 11/18/20 24 11/25/2024 BIOAV AILAB LE + FREE TESTO ST bioavailable + free testost 126 NG/dL Refer ence Range : Males (50 - 69y): 95 - 285 Perfo rmed at: [facility] [address] [place] [address] Lab Direc tor: Stas emery MD, Phone : [phone] Not Available [facility] (Lab) [address] [place], [address], 11/25/2024 16:08:51 11/18/20 24 11/25/2024 BIOAV AILAB LE + FREE TESTO ST bioavailable testosterone , % 38.8 % Not Available [facility] (Lab) [address] [place], [address], 11/25/2024 16:08:51 11/18/20 24 11/25/2024 BIOAV AILAB LE + FREE TESTO ST free testosterone ,serum 65 pg/mL Refer ence Range : Adult Males : 52 - 280 Not Available [facility] (Lab) [address] [place], [address], 11/25/2024 16:08:51 11/18/20 24 11/25/2024 BIOAV AILAB LE + FREE TESTO ST testosterone ,total 324 NG/dL This test was devel oped and its perfo rmanc e rashi cteri stics deter mined by [employer]. It has not been clear ed or appro mayi by the Food and Drug Admin istra tion. Refer ence Range : Adult Males >18 years 264 - 916 This [employer] r[employer] LC/MS -MS metho d is curre ntly certi fied by the CDC Hormo ne Stand ardiz ation Progr am (HoST ). Adult male refer ence inter rufina is based on a popul ation of healt hy nonob mary males (BMI <3 0) betwe en 19 and 39 years old. Woody díaz, et.al . JCEM 2017, 102;1 161-1 173 PMID: 96851 103. Not Available [facility] ([facility]) [address] [place], [address], 11/25/2024 16:08:51 05/26/20 22 05/25/2022 MRI, cervi sofiya spine , w/o contr ast [facility] [address] [facility] [place] [address] Patien t Name: IVANA HERNANDEZ Access ion #: [id number] Sex: M : 1974 6 Locati [...] cord: Unrema rkable Page 1 of 2 [facility] Patien t Name: IVANA HERNANDEZ Access ion #: [id number] Sex: M : 1974 6 Exam [...] 2:11 PM (CT) Page 2 of 2 [id number] [facility] (Imaging) [address] [place], [address], 01/25/2023 14:17:46 Result Notes None recorded. Problems Name Problem SNOMED Code Status Onset Date Resolution Date Notes Provider Name and Address Organization Details Recorded Time Testicular hypofuncti on 245201253 Active 2018 Not Available [facility] 3 14:14:52 Plantar fasciitis 972738966 Active Not Available [facility] 3 14:14:52 Gastroesop hageal reflux disease 603472093 Active 2018 Not Available [facility] 3 14:14:52 Thoracic back pain 257637322 Active Not Available [facility] 3 14:14:52 Finding of body mass index 656975318 Active 2021 Not Available [facility] 3 14:14:52 Disorder of prostate 88305304 Active 2022 Not Available [facility] 3 14:14:52 Obesity 893259179 Active 2022 Not Available [facility] 3 14:14:52 Cervical radiculopa thy 59474110 Active 2021 Not Available [facility] 3 14:14:52 Stress 65386975 Active Not Available [facility] 3 14:14:52 Obstructiv e sleep apnea syndrome 48523919 Active 2018 Not Available [facility] 3 14:14:53 Fatigue 27711361 Active Not Available [facility] 3 14:14:53 Obese class II 1521950795633 05 Active 2023 Mendoza Gipson MD [address] [facility], [address] [address], [place], [address] , [facility] 4 11:50:01 Hypopituit arism 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 Procedures Surgical History None recorded. Imaging Results Imaging Date Name Status LastModified by Organiz ation Details LastModified Time 05/25/2022 MRI, cervical spine, w/o contrast completed [id number] [facility] (Imaging) [address] [facility], [place], [address], 01/25/2023 14:17:46 Procedure Notes None recorded. Medical [...] % 96 % 94 /min 96.9 [degF] 675956. 78 g 120 mm[Hg] 84 mm[Hg] Not Available [facility] 3 14:14:00 Date Recorded Body mass index (BMI) Body height Oxygen saturation Oxygen saturation in Arterial blood by Pulse oximetry Heart rate Body temperature Body weight Systolic blood pressure Diastolic blood pressure Provider Name and Address Organization Details Last Updated DateTime 3 39.2 kg/m2 170.18 cm 98 % 98 % 74 /min 97.4 [degF] 239198. 09 g 140 mm[Hg] 80 mm[Hg] Not Available [facility] 3 14:14:00 Date Recorded Body height Body mass index (BMI) Body weight Body temperature Heart rate Oxygen saturation Oxygen saturation in Arterial blood by Pulse oximetry Systolic blood pressure Diastolic blood pressure Provider Name and Address Organization Details Last Updated DateTime 3 170.18 cm 37.9 kg/m2 084154. 35 g 96.8 [degF] 98 /min 96 % 96 % 124 mm[Hg] 86 mm[Hg] Maggie Wagner MA [employer] 3 14:37:16 Date Recorded Body height Body mass index (BMI) Body weight Heart rate Body temperature Oxygen saturation Oxygen saturation in Arterial blood by Pulse oximetry Systolic blood pressure Diastolic blood pressure Provider Name and Address Organization Details Last Updated DateTime 4 170.18 cm 39.6 kg/m2 599667. 87 g 100 /min 97 [degF] 96 % 96 % 118 mm[Hg] 80 mm[Hg] Jessica Braswell [employer] [facility] [employer] 4 11:37:37 Date Recorded Body height Body mass index (BMI) Body weight Heart rate Body temperature Oxygen saturation Oxygen saturation in Arterial blood by Pulse oximetry Systolic blood pressure Diastolic blood pressure Provider Name and Address Organization Details Last Updated DateTime 4 170.18 cm 39.5 kg/m2 770073. 28 g 94 /min 97.2 [degF] 97 % 97 % 128 mm[Hg] 88 mm[Hg] LIZETTE Mendez SC [employer] [facility] [employer] [facility] 4 11:36:48 Social History Question Answer Notes LastModified by Organizat ion Details LastModified Time Tobacco Smoking Status Never Smoker Not Available [facility] 01/25/2023 14:11:44 What Is Your Level Of Alcohol Consumption? Occasional [id number] Information not available 01/25/2023 In The 14 Days Before Symptom Onset, Have You Had Close Contact With A Laboratory-confir med COVID-19 While That Case Was Ill? No [id number] Information not available 01/25/2023 In The 14 Days Before Symptom Onset, Have You Had Close Contact With A Person Who Is Under Investigation For COVID-19 While That Person Was Ill? No [id number] Information not available 01/25/2023 Do You Or Have You Ever Used E-cigarettes Or Vape? 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 04/09/2021 [id number] Information not available 01/25/2023 Do You Or Have You Ever Used Smokeless Tobacco? Never Used Smokeless Tobacco [id number] Information not available 01/25/2023 Sex: Unknown Functional [...] ARTERY DISEASE (CAD) N ADDICTION CONCERNS N ENDOMETRIOSIS N Impotence N USE OF BLOOD THINNERS N SKIN [...] APNEA Y CHICKENPOX N INFECTIOUS DISEASE N HEART ARRHYTHMIA N PROSTATE N INSOMNIA N HIGH CHOLESTEROL / HYPERLIPIDEMIA N HYPERTHYROIDISM N EYE PROBLEMS N EDEMA N CHRONIC PAIN SYNDROME N HYPOTHYROIDISM N CAROTID BLOCKAGE N CONSTIPATION N BACK / NECK PROBLEMS N HAVE YOU BEEN HOSPITALIZED OR SEEN IN HEALTH SYSTEM ER IN THE PAST YEAR ? N ATHEROSCLEROSIS N BREAST PROBLEMS N DIALYSIS N ECZEMA N OSTEOPOROSIS N ARTHRITIS N NO SIGNIFICANT PAST MEDICAL HISTORY N APPENDICITIS N DIABETES, TYPE N BAD TEETH N ENT N HEARTBURN / REFLUX Y AUTISM SPECTRUM DISORDER (ASD) N HEPATITIS / LIVER DISEASE N GOUT N SLEEP DISORDER N ALZHEIMER'S DISEASE N Brain Problems N HERPES N DEMENTIA N HEADACHES/MIGRAINES N SEIZURES/EPILEPSY N VASCULAR DISEASE N PACEMAKER N Blood Disorder N DIZZINESS N HEART DISEASE/HEART PROBLEMS N KIDNEY DISEASE N MULTIPLE SCLEROSIS N CARDIAC ARRHYTHMIA N CANCER: SPECIFY N ATRIAL FIBRILLATION N Gall Stones N PULMONARY EMBOLISM N AUTOIMMUNE DISEASE N Immunizations Vaccine Type Date Status Note Provider Nam e and Address Organization Details Recorded Time SARS-COV-2 (COVID-19) vaccine, UNSPECIFIED 1 completed Not Available [facility] 01/25/2023 14:17:35 SARS-COV-2 (COVID-19) vaccine, UNSPECIFIED 1 completed Not Available [facility] 01/25/2023 14:17:35 Influenza, high-dose, trivalent, PF 4 completed Not Available [facility] 01/25/2023 14:17:35 Past Encounters Encounter ID Performer Location Encounter Start Date Encounter Closed Date Diagnosis/Indication Diagnosis SNOMED-CT Code Diagnosis ICD10 Code Diagnosis Note [id number] [facility] [address] [address] 02/19/2021 00:00:00 02/19/2021 17:16:39 [id number] [facility] Pulmonolo gy [address] [address] 04/09/2021 00:00:00 04/09/2021 17:16:53 [id number] [facility] Internal Med Shoshana yeh [facility] Maninder y , [facility] [place] [address] 04/27/2021 00:00:00 04/27/2021 15:29:24 [id number] [facility] Internal Med [facility] [address] [address] 10/27/2021 00:00:00 10/27/2021 17:25:05 [id number] [facility] Internal Med [facility] [address] [address] 04/27/2022 00:00:00 04/27/2022 17:12:49 [id number] [facility] Internal Med [facility] [address] [address] 11/30/2022 00:00:00 11/30/2022 17:12:15 [id number] Mendoza Gipson MD [facility] Internal Med [facility] [address] [address] 06/12/2023 14:27:12 06/12/2023 15:03:03 Adult health examination 115867310 Z00.00 Depression screening 171 763601 Z13.31 Gastroesop hageal reflux disease 273105367 K21.9 Obstructiv e sleep apnea syndrome 73412617 G47.33 Obesity 793681445 E66.9 [id number] Mendoza Gipson MD S[facility] Internal Med [facility] [address] [address] 02/07/2024 11:18:46 02/07/2024 12:03:22 Obstructive sleep apnea syndrome 76731765 G47.33 Gastroesop hageal reflux disease 970984925 K21.9 Testicular hypofunction 331713512 E29.1 Obese class II 074328650 1 [address] E66.9 Disorder of prostate 302 [address] N42.9 Screening for cardiovascular system disease 475205748 Z13.6 [id number] Mendoza Gipson MD [facility] Internal Med [facility] [address] [place] [address] [address] 08/07/2024 11:32:51 08/07/2024 12:05:12 Adult health examination 971595276 Z00.00 Depression screening 171 529717 Z13.31 Obstructiv e sleep apnea syndrome 25825488 G47.33 Testicular hypofunction 325219358 E29.1 Gastroesop hageal reflux disease 116827298 K21.9 Obese class II 009310545 1 54494 E66.9 Health Concerns Section Related Observation LastModified by Organization Detai ls LastModified Time None Recorded Concern Status LastModified by Organization Details LastModified Time None Recorded Advance Directives Directive None Recorded Payers Encounter Date Sequence Insurance Name Policy Number Policy Billingsley Covered Member ID Billingsley Member ID Guarantor Name 06/12/2023 2 [place] [id number] Alex Plummer Eze [id number] Alex Plummer Eze 06/12/2023 1 [employer] - AETNA ([place]) [id number] Alex Plummer Jackydannysonja [id number] Alex Plummer Jackydannysonja 02/07/2024 1 [employer] - [place]ET[place] ([place]) [id number] Alex Plummer Jackydannysonja [id number] Alex Plummer Eze 08/07/2024 1 [employer] - [place]) [id number] Alex Plummer Jackydannydallin [id number] Alex Plummer Jackydannysonja Notes Date Note Type [...] nightly basis . Overall has shown considerable improvement.[place] Sleepiness ScaleSitting and ReadinWatching TV: 1Sitting Inactive [...] offered to be evaluated and instructed by mathematical sciences professor on weight loss diet.Medication List Reviewed and Reconciled 06/12/2023Multivitamin DailyCpap As DirectedOmeprazole 20 MG (CAPSULE, DELAYED REL PELLETS - ORAL) One DailyVaccination and Fjyrdrrhksvk0748-56 Covid PfizerSurgical HistoryPlanter Fascitis, Bilateral Inguinal HerniaPreventative Testing Confirmed by Our Lmtffkw2512/08/2022 ALBUMIN 4.6 G/DL12/08/2022 PSA 0.59 NG/ML11/10/2021 COLOGUARD 11/10/2024Social HistoryDoes not current smoke. Stopped 2003. Smoke 1/2 pack daily for 10 yearsDrinks socially up to 12 pack per weekWorks as a steel workerFamily HistoryMother 72 years old and in good healthFather 74 lymphoma and CKDOne sister living and in good health Mendoza Gipson MD [address] [facility] [address], [place], [address], [facility] [employer] 06/12/2023 15:01:15 4 text/html Patient Name: Alex [...] nightly basis . Overall has shown considerable improvement.[place] Sleepiness ScaleSitting and ReadinWatching TV: 1Sitting Inactive [...] offered to be evaluated and instructed by mathematical sciences professor on weight loss diet. Active Medication ListMultivitamin DailyCpap As DirectedOmeprazole 20 MG (CAPSULE, DELAYED REL PELLETS - ORAL) One Daily Vaccination and Mezwfxvliwhh3665-87 [facility] Sxtoimz2375-38 Planter Dswzrarr5747-15 Bilateral Inguinal Hernia Preventative Fapzuom5212/08/2022 ALBUMIN 4.6 G/DL N012/08/2022 PSA 0.59 NG/ML N101/11/2021 COLOGUARD 11/10/2024 Social HistoryDoes not current smoke. Stopped 2003. 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 Overall has shown considerable improvement.[place] Sleepiness ScaleSitting and ReadinWatching TV: 1Sitting Inactive [...] offered to be evaluated and instructed by mathematical sciences professor on weight loss diet. Active Medication ListMultivitamin DailyCpap As DirectedOmeprazole 20 MG (CAPSULE, DELAYED REL PELLETS - ORAL) One Daily Vaccination and Ybwuyljwfufx5432-23 [facility] Wbnxudr1220-29 Planter Odenizdg8178-57 Bilateral Inguinal Hernia Preventative Testing( ) 02/19/2024 Albumin 4.5 G/DL N( ) 02/19/2024 PSA 0.64 NG/ML N 02/18/2025( ) 11/10/2021 Cologuard 11/10/2024 Social HistoryDoes not current smoke. Stopped 2003. Smoke 1/2 pack daily for 10 yearsDrinks socially up to 12 pack per weekWorks as a steel loader Family HistoryMother 72 years old and in [...] 0.60-1.29 MG/DLEGFR 102 > OR = 60 ML/MIN/1.53U9YKZRFNOTJ, TOTAL 0.3 0.2-1.2 MG/DLALKALINE PHOSPHATASE 107 36-130 [...] (DIALYSIS) AND TOTAL,MS Date: 02/19/2024TESTOSTERONE, TOTAL, MS [phone] NG/DLTESTOSTERONE, FREE 37 35.0-155.0 PG/MLTSH Date: 02/19/2024TSH 1.16 0.40-4.50 MIU/LVITAMIN B12 Date: 02/19/2024VITAMIN B12 [phone] PG/ML Mendoza Gipson MD [address] [facility] [address], [place], [address], [place] [facility] [employer] 08/07/2024 12:02:26
== END 2025-01-17 07:01 | disposition home or self-care (01) ==
PROVIDERS: PCP Internal Medicine; Visit Provider Podiatrist Foot & Ankle Surgery
DX: M79.9 Soft tissue disorder, unspecified (principal)
CPT/HCPCS: 88304

== ENCOUNTER 2025-01-17 07:56 | Day surgery (SDC) | payer OTHER, SELFPAY ==
[2024-12-31 09:48] VITALS: BMI 32.9
--- NOTE | 2025-01-17 07:21 | WPDHPUPDATE1 ---
History and Physical Update Update Date/Time: 01/17/25 07:21 History and Physical has been reviewed, including an updated exam of the patient. There are NO changes in the patient's condition. Risks, benefits, and alternatives have been discussed and questions answered. Patient agrees to proceed with procedure.
[2025-01-17 09:11] VITALS: BP 126/91; PULSE 92; RESP 20; TEMP 36.8; O2SAT 97
[2025-01-17 09:13] VITALS: BMI 39.7
--- OUTSIDE RECORDS SUMMARY | 2025-01-17 09:20 | XMS_ITS | Data Portability ---
Author Organization [facility] [employer], Main Office Address [address] [place] [address] Care Team Providers Care Prior Authorization Technician Name Role Phone Unavailable Graduate Studies Dean [phone] Assessment No assessment recorded. Plan of Treatment Reminders Order Date Submit Date Provider Last Modified By Organization Details Last Modified Time Details Appointments None recorded. Lab FSH (follicle -stimulat ing hormone), serum 024 [facility] (Lab), [address] [place], [address], 4 08:31:23 lh (luteiniz ing hormone), serum 024 [facility] (Lab), [address] [place], [address], 4 08:31:24 prolactin , serum 024 [facility] (Lab), [address] [place], [address], 4 08:31:24 TSH, serum or plasma [id number] [facility] (Lab), [address] [place], [address], 4 17:32:23 T4, free, serum [id number] [facility] (Lab), [address] [place], [address], 4 17:32:23 lipid panel, serum 024 [facility] (Lab), [address] [place], [address], 4 14:49:31 CMP, serum or plasma [facility] (Lab), [address] [place], [address], 4 14:49:33 magnesium , serum or plasma [id number] (Lab), [address] [place], [address], 4 17:32:23 vitamin B12, serum [id number] [address] (Lab), [address] [place], [address], 4 17:32:23 CBC w/ auto diff [id number] [address] (Lab), [address] [place], [address], 4 17:32:23 PSA, serum or plasma [id number] [place] [address] (Lab), [address] [place], [address], 4 17:32:23 testoster one, free + total, serum [id number] (Lab), [address] [place], [address], 4 17:32:22 Referral None recorded. Procedures None recorded. Surgeries None recorded. Imaging None recorded. Medication Orders None recorded. Patient TargetsNo targets recorded. Patient Instructions Encounter Date Encounter Id Patient Instructions Last Modified By Organization Details Last Modified Time 06/12/2023 [id number] risk assessment* [email or web address] Not availabl e 06/12/2023 15:01:12 INFLUENZA VACCIN E TD/TDAP Recommended today, patient declined Ordered P atient will get at local pharmacy/health department PNEUMONIA VACCINE Ordered Recommende d today, patient declined Patient will get at local pharmacy/health department Recomme nded at age 64 SHINGLES Not indicated PSA Ordered No screening necessary patient is up to date COLORECTAL SCREENING No screening necessary patient is up to date DEPRESSION SCREENING Negative BMI Overweight continue your current weight loss efforts try to lose 5% of your body weight try to lose 10% of your body weight NUTRITION PHYSICAL ACTIVITY Need more exercise/physical activity ALCOHOL USE No alcohol use Occasional/Soc ial Use TOBACCO USE non smoker LUNG CANCER SCREENING Non Smoker-not indicated SEXUALLY ACTIVE HEPATITIS C SCREENING Not indicated GLUCOSE SCREENING LIPID SCREENING [email or web address] Not available 06/12/2023 14:50:01 Adult health examination risk assessment stable follow-up for GERD-obstructive sleep apnea -obesity all clinically stable. Blood work performed back in November cholesterol is 204 HDL of 52 LDL of 117. PSA was 0.59. Had a Cologuard done in 2020 is not due to 2023. Is up-to-date on other immunizations with regards to COVID. Will continue on current Rx and follow-up in six months. [email or web address] Not available 06/12/2023 15:00:58 02/07/2024 [id number] Obstructive slee p apnea, GERD, testicular hypofunction and obesity class two. Plan continue on current Rx check blood work consisting of CBC, CMP, lipid, thyroid, magnesium level, B12 and PSA and testosterone levels. Portions of the record may have been created with voice recognition software. Occasional wrong-word or s ound-a-like substitutions may have occurred due to the inherent limitations of voice recognition software. Read the chart carefully and recognize, using context, where substitutions have occurred. Not available 02/07/2024 11:55:10 08/07/2024 [id number] risk assessment* [email or web address] Not availabl e 08/07/2024 12:02:22 INFLUENZA VACCIN E TD/TDAP Recommended today, patient declined Ordered P atient will get at local pharmacy/health department PNEUMONIA VACCINE Ordered Recommende d today, patient declined Patient will get at local pharmacy/health department Recomme nded at age 64 SHINGLES Ordered Recommende d today, patient declined Patient will get at local pharmacy/health department PSA Ordered No screening necessary patient is up to date COLORECTAL SCREENING No screening necessary patient is up to date DEPRESSION SCREENING Negative BMI Overweight continue your current weight loss efforts try to lose 5% of your body weight try to lose 10% of your body weight NUTRITION PHYSICAL ACTIVITY Need more exercise/physical activity ALCOHOL USE No alcohol use Occasional/Soc ial Use TOBACCO USE non smoker LUNG CANCER SCREENING Non Smoker-not indicated SEXUALLY ACTIVE HEPATITIS C SCREENING Not indicated GLUCOSE SCREENING LIPID SCREENING [email or web address] Not available 08/07/2024 11:43:06 Wellness evaluation risk assessment stable. Up-to-date on immunizations as well as other screening studies at this time. Is obstructive sleep apnea is doing well. He also has the associated testicular hypofunction. Will need a FSH, LH as well as prolactin level to further assess the pituitary axis. Continue on current medications. Will need to consider starting either on testosterone injections and or possible patches. Will continue on current medications currently in follow-up in six months. Next Appointment: 6 Months Approximate Date: 02/03/2025 Portions of the record may have been created with voice recognition software. Occasional wrong-word or s ound-a-like substitutions may have occurred due to the inherent limitations of voice recognition software. Read the chart carefully and recognize, using context, where substitutions have occurred. [email or web address] Not available 08/07/2024 12:02:10 Reason for Referral None Reported. Results Created Date Observation Date Name Description Value Unit Range Abnormal Flag Note LastModifiedBy Organization Detail LastModifiedTime 05/21/20 22 05/24/2022 TESTO STERO NE, FREE (DIAL YSIS) AND TOTAL ,MS testosterone , total, MS 386 NG/dL 250-11 00 Men with clini laci signi fican t hypog onada l sympt oms and testo stero ne value s repea tedly in the range of the 200-3 00 ng/dL or less, may benef it from testo stero ne treat ment after adequ ate risk and benef its couns eling . For addit ional infor mackenzie nova e refer to https ://ed hannahati on.qu estdalton agnos tics. com/f aq/FA Q165 (This link is being provi ded for infor matio nal/e ducat ional purpo ses only. ) (Note ) This test was devel oped and its kassi tical perfo rmanc e rashi cteri stics have been deter mined by [employer]. It has not been clear ed or appro mayi by the FDA. This assay has been valid ated pursu ant to the CLIA regul ation s and is used for clini sofiya purpo ses. Not Available [address], [address], 05/24/2022 15:56:02 05/21/20 22 05/24/2022 TESTO STERO NE, FREE (DIAL YSIS) AND TOTAL ,MS testosterone , free 56.9 pg/mL 35.0-1 55.0 (Note ) This test was devel oped and its kassi tical perfo rmanc e rashi cteri stics have been deter mined by [employer]. It has not been clear ed or appro mayi by the FDA. This assay has been valid ated pursu ant to the CLIA regul ation s and is used for clini sofiya purpo ses. MYA med fusio n [address] [facility] [address] [facility] [address] [phone] Alexi winter MD Not Available [address], [address], 05/24/2022 15:56:02 05/21/20 22 05/24/2022 CBC (INCL UDES DIFF/ PLT) white blood cell count 4.8 thous and/u L 3.8-10 .8 normal Not Available [address], [address], 05/24/2022 15:56:01 05/21/20 22 05/24/2022 CBC (INCL UDES DIFF/ PLT) red blood cell count 5.11 francisco on/uL 4.20-5 .80 normal Not Available [address] [place], [address], 05/24/2022 15:56:01 05/21/20 22 05/24/2022 CBC (INCL UDES DIFF/ PLT) hemoglobin 15.3 g/dL 13.2-1 7.1 normal Not Available [address], [address], 05/24/2022 15:56:01 05/21/20 22 05/24/2022 CBC (INCL UDES DIFF/ PLT) hematocrit 45.3 % 38.5-5 0.0 normal Not Available [address], [address], 05/24/2022 15:56:01 05/21/20 22 05/24/2022 CBC (INCL UDES DIFF/ PLT) MCV 88.6 fL 80.0-1 00.0 normal Not Available [address], [address], 05/24/2022 15:56:01 05/21/20 22 05/24/2022 CBC (INCL UDES DIFF/ PLT) MCH 29.9 pg 27.0-3 3.0 normal Not Available [address], [address], 05/24/2022 15:56:01 05/21/20 22 05/24/2022 CBC (INCL UDES DIFF/ PLT) MCHC 33.8 g/dL 32.0-3 6.0 normal Not Available [address], [address], 05/24/2022 15:56:01 05/21/20 22 05/24/2022 CBC (INCL UDES DIFF/ PLT) RDW 13.7 % 11.0-1 5.0 normal Not Available [address], [address], 05/24/2022 15:56:01 05/21/20 22 05/24/2022 CBC (INCL UDES DIFF/ PLT) platelet count 280 thous and/u L 140-40 0 normal Not Available [address], [address], 05/24/2022 15:56:01 05/21/20 22 05/24/2022 CBC (INCL UDES DIFF/ PLT) MPV 10.5 fL 7.5-12 .5 normal Not Available [address], [address], 05/24/2022 15:56:01 05/21/20 22 05/24/2022 CBC (INCL UDES DIFF/ PLT) absolute neutrophils 2606 cells /uL 1500-7 800 normal Not Available [address], [address], 05/24/2022 15:56:01 05/21/20 22 05/24/2022 CBC (INCL UDES DIFF/ PLT) absolute lymphocytes 1546 cells /uL 850-39 00 normal Not Available [address], [address], 05/24/2022 15:56:01 05/21/20 22 05/24/2022 CBC (INCL UDES DIFF/ PLT) absolute monocytes 480 cells /uL 200-95 0 normal Not Available [address], [address], 05/24/2022 15:56:01 05/21/20 22 05/24/2022 CBC (INCL UDES DIFF/ PLT) absolute eosinophils 158 cells /uL 15-500 normal Not Available [address], [address], 05/24/2022 15:56:01 05/21/20 22 05/24/2022 CBC (INCL UDES DIFF/ PLT) absolute basophils 10 cells /uL 0-200 normal Not Available [address], [address], 05/24/2022 15:56:01 05/21/20 22 05/24/2022 CBC (INCL UDES DIFF/ PLT) neutrophils 54.3 % normal Not Available [address], [address], 05/24/2022 15:56:01 05/21/20 22 05/24/2022 CBC (INCL UDES DIFF/ PLT) lymphocytes 32.2 % normal Not Available [address], [address], 05/24/2022 15:56:01 05/21/20 22 05/24/2022 CBC (INCL UDES DIFF/ PLT) monocytes 10.0 % normal Not Available [address], [address], 05/24/2022 15:56:01 05/21/20 22 05/24/2022 CBC (INCL UDES DIFF/ PLT) eosinophils 3.3 % normal Not Available [address], [address], 05/24/2022 15:56:01 05/21/20 22 05/24/2022 CBC (INCL UDES DIFF/ PLT) basophils 0.2 % normal Not Available [address], [address], 05/24/2022 15:56:01 05/21/20 22 05/24/2022 COMPR EHENS [place] METAB OLIC PANEL carbon dioxide 29 mmol/ L 20-32 normal Not Available [address], [address], 05/24/2022 15:56:00 05/21/20 22 05/24/2022 COMPR EHENS [place] METAB OLIC PANEL calcium 9.7 mg/dL 8.6-10 .3 normal Not Available [address], [address], 05/24/2022 15:56:00 05/21/20 22 05/24/2022 COMPR EHENS [place] METAB OLIC PANEL protein, total 7.4 g/dL 6.1-8. 1 normal Not Available [address], [address], 05/24/2022 15:56:00 05/21/20 22 05/24/2022 COMPR EHENS [place] METAB OLIC PANEL albumin 4.3 g/dL 3.6-5. 1 normal Not Available [address], [address], 05/24/2022 15:56:00 05/21/20 22 05/24/2022 COMPR EHENS [place] METAB OLIC PANEL globulin 3.1 g/dL_ (calc ) 1.9-3. 7 normal Not Available [address], [address], 05/24/2022 15:56:00 05/21/20 22 05/24/2022 COMPR EHENS [place] METAB OLIC PANEL albumin/glob ulin ratio 1.4 (calc ) 1.0-2. 5 normal Not Available [address], [address], 05/24/2022 15:56:00 05/21/20 22 05/24/2022 COMPR EHENS [place] METAB OLIC PANEL bilirubin, total 0.6 mg/dL 0.2-1. 2 normal Not Available [address], [address], 05/24/2022 15:56:00 05/21/20 22 05/24/2022 COMPR EHENS [place] METAB OLIC PANEL alkaline phosphatase 94 U/L 36-130 normal Not Available [address], [address], 05/24/2022 15:56:00 05/21/20 22 05/24/2022 COMPR EHENS [place] METAB OLIC PANEL AST 29 U/L 10-40 normal Not Available [address], [address], 05/24/2022 15:56:00 05/21/20 22 05/24/2022 COMPR EHENS [place] METAB OLIC PANEL ALT 44 U/L 9-46 normal Not Available [address], [address], 05/24/2022 15:56:00 05/21/20 22 05/24/2022 COMPR EHENS [place] METAB OLIC PANEL glucose 97 mg/dL 65-99 normal Fasti ng refer ence inter rufina Not Available [address], [address], 05/24/2022 15:56:00 05/21/20 22 05/24/2022 COMPR EHENS [place] METAB OLIC PANEL urea nitrogen (BUN) 20 mg/dL 7-25 normal Not Available [address], [address], 05/24/2022 15:56:00 05/21/20 22 05/24/2022 COMPR EHENS [place] METAB OLIC PANEL creatinine 1.01 mg/dL 0.60-1 .35 normal Not Available [address], [address], 05/24/2022 15:56:00 05/21/20 22 05/24/2022 COMPR EHENS [place] METAB OLIC PANEL eGFR non-afr. maltese 88 mL/mi n/1.7 3m2 > or = 60 normal Not Available [address], [address], 05/24/2022 15:56:00 05/21/20 22 05/24/2022 COMPR EHENS [place] METAB OLIC PANEL eGFR 101 mL/mi n/1.7 3m2 > or = 60 normal Not Available [address], [address], 05/24/2022 15:56:00 05/21/20 22 05/24/2022 COMPR EHENS [place] METAB OLIC PANEL BUN/creatini ne ratio not applic able (calc ) 6-22 Not Available [address], [address], 05/24/2022 15:56:00 05/21/20 22 05/24/2022 COMPR EHENS [place] METAB OLIC PANEL sodium 138 mmol/ L 135-14 6 normal Not Available [address], [address], 05/24/2022 15:56:00 05/21/20 22 05/24/2022 COMPR EHENS [place] METAB OLIC PANEL potassium 4.8 mmol/ L 3.5-5. 3 normal Not Available [address], [address], 05/24/2022 15:56:00 05/21/20 22 05/24/2022 COMPR EHENS [place] METAB OLIC PANEL chloride 102 mmol/ L 98-110 normal Not Available [address], [address], 05/24/2022 15:56:00 05/21/20 22 05/24/2022 LIPID PANEL , STAND JEANNETTE cholesterol, total 211 mg/dL <200 high Not Available [address], [address], 05/24/2022 15:55:59 05/21/20 22 05/24/2022 LIPID PANEL , STAND JEANNETTE HDL cholesterol 51 mg/dL > or = 40 normal Not Available [address], [address], 05/24/2022 15:55:59 05/21/20 22 05/24/2022 LIPID PANEL , STAND JEANNETTE triglyceride s 328 mg/dL <150 high If a non-f astin g speci men was colle cted, consi paerl repea t trigl yceri de testi ng on a fasti ng speci men if clini laci indic ated. Jareth díaz et al. J. of Clin. Lipid ol. 2015; 9:129 -169. Not Available [facility] [address] [place], [address], 05/24/2022 15:55:59 05/21/20 22 05/24/2022 LIPID PANEL , STAND JEANNETTE LDL-choleste rol 113 mg/dL _(sofiya c) high Refer ence range : <100 Ana able range <100 mg/dL for prima ry preve ntion ; <70 mg/dL for patie nts with CHD or diabe tic patie nts with > or = 2 CHD risk facto rs. LDL-C is now calcu lated using the Virgie n-Hop kins bretu turner n, which is a valid ated novel joseo d provi ding wally r accur acy than the Fried nelly equat ion in the estim ation of LDL-C . Virgie farooq SS et al. IDANIA. 2013; 310(1 9): 2061- 2068 (http ://ed ucati on.Qu Nael GeoVario. com/f aq/FA Q164) Not Available [facility] [address] [place], [address], 05/24/2022 15:55:59 05/21/20 22 05/24/2022 LIPID PANEL , STAND JEANNETTE chol/HDLC ratio 4.1 (calc ) <5.0 normal Not Available [facility] [address] [place], [address], 05/24/2022 15:55:59 05/21/20 22 05/24/2022 LIPID PANEL , STAND JEANNETTE non HDL cholesterol 160 mg/dL _(sofiya c) <130 high For patie nts with diabe viola plus 1 major ASCVD risk facto r, treat ing to a non-H DL-C goal of <100 mg/dL (LDL- C of <70 mg/dL ) is consi dered a thera pesandrai c optio n. Not Available [facility] [address] [place], [address], 05/24/2022 15:55:59 12/08/19 23 12/11/2022 TESTO STERO NE, FREE (DIAL YSIS) AND TOTAL ,MS testosterone , total, MS 341 NG/dL 250-11 00 Men with clini laci signi fican t hypog onada l sympt oms and testo stero ne value s repea tedly in the range of the 200-3 00 ng/dL or less, may benef it from testo stero ne treat ment after adequ ate risk and benef its couns eling . For addit ional infor mackenzie nova e refer to https ://ed ucati on.qu Searchbox. Vinsula/f aq/FA Q112 (This link is being provi ded for infor mary nal/e ducat ional purpo ses only. ) (Note ) This test was devel oped and its kassi tical perfo rmanc e rashi cteri stics have been deter mined by [employer]. It has not been clear ed or appro mayi by the FDA. This assay has been valid ated pursu ant to the CLIA regul ation s and is used for clini sofiya purpo ses. Not Available [facility] [address], [place], [address], 12/11/2022 15:36:54 12/08/19 23 12/11/2022 TESTO STERO NE, FREE (DIAL YSIS) AND TOTAL ,MS testosterone , free 73 pg/mL 35.0-1 55.0 (Note ) This test was devel oped and its kassi tical perfo rmanc e rashi cteri stics have been deter mined by [employer]. It has not been clear ed or appro mayi by the FDA. This assay has been valid ated pursu ant to the CLIA regul ation s and is used for clini sofiya purpo ses. MDF med fusvikki n [address] [facility] [address] [place] [address] [phone] Alexi winter MD Not Available [facility] [address], [address], 12/11/2022 15:36:54 12/08/19 23 12/11/2022 PSA, TOTAL PSA, total 0.59 NG/mL < or = 4.00 normal The total PSA value from this assay syste m is stand ardiz ed again st the WHO stand jeannette. The test resul t will be appro ximat sesar 20% lower when lauri red to the equim olar- stand ardiz ed total PSA (Reynolds man Coult er). Lauri rison of seria l PSA resul ts shoul d be inter prete d with this fact in mind. This test was perfo rmed using the Climateminder chemi lumin escen t metho d. Value s obtai lynn from diffe rent assay metho ds canno t be used inter clark eably . PSA level s, regar dless of value , shoul d not be inter prete d as absol chenega evide nce of the prese nce or absen ce of disea se. Not Available [address], [address], 12/11/2022 15:36:53 12/08/19 23 12/11/2022 VITAM IN B12 vitamin B12 683 pg/mL 200-11 00 normal Not Available [facility] [address] [place], [address], 12/11/2022 15:36:53 12/08/19 23 12/11/2022 CBC (INCL UDES DIFF/ PLT) white blood cell count 5.2 thous and/u L 3.8-10 .8 normal Not Available [address] [place], [address], 12/11/2022 15:36:52 12/08/19 23 12/11/2022 CBC (INCL UDES DIFF/ PLT) red blood cell count 5.16 francisco on/uL 4.20-5 .80 normal Not Available [address], [address], 12/11/2022 15:36:52 12/08/19 23 12/11/2022 CBC (INCL UDES DIFF/ PLT) hemoglobin 15.4 g/dL 13.2-1 7.1 normal Not Available [address], [address], 12/11/2022 15:36:52 12/08/19 23 12/11/2022 CBC (INCL UDES DIFF/ PLT) hematocrit 46.8 % 38.5-5 0.0 normal Not Available [address], [address], 12/11/2022 15:36:52 12/08/19 23 12/11/2022 CBC (INCL UDES DIFF/ PLT) MCV 90.7 fL 80.0-1 00.0 normal Not Available [address], [address], 12/11/2022 15:36:52 12/08/19 23 12/11/2022 CBC (INCL UDES DIFF/ PLT) MCH 29.8 pg 27.0-3 3.0 normal Not Available [address], [address], 12/11/2022 15:36:52 12/08/19 23 12/11/2022 CBC (INCL UDES DIFF/ PLT) MCHC 32.9 g/dL 32.0-3 6.0 normal Not Available [address], [address], 12/11/2022 15:36:52 12/08/19 23 12/11/2022 CBC (INCL UDES DIFF/ PLT) RDW 13.3 % 11.0-1 5.0 normal Not Available [address], [place], [address], 12/11/2022 15:36:52 12/08/19 23 12/11/2022 CBC (INCL UDES DIFF/ PLT) platelet count 290 thous and/u L 140-40 0 normal Not Available [address], [address], 12/11/2022 15:36:52 12/08/19 23 12/11/2022 CBC (INCL UDES DIFF/ PLT) MPV 10.9 fL 7.5-12 .5 normal Not Available [facility] [address], [address], 12/11/2022 15:36:52 12/08/19 23 12/11/2022 CBC (INCL UDES DIFF/ PLT) absolute neutrophils 2538 cells /uL 1500-7 800 normal Not Available [address], [address], 12/11/2022 15:36:52 12/08/19 23 12/11/2022 CBC (INCL UDES DIFF/ PLT) absolute lymphocytes 1997 cells /uL 850-39 00 normal Not Available [address], [address], 12/11/2022 15:36:52 12/08/19 23 12/11/2022 CBC (INCL UDES DIFF/ PLT) absolute monocytes 567 cells /uL 200-95 0 normal Not Available [address], [address], 12/11/2022 15:36:52 12/08/19 23 12/11/2022 CBC (INCL UDES DIFF/ PLT) absolute eosinophils 88 cells /uL 15-500 normal Not Available [address], [address], 12/11/2022 15:36:52 12/08/19 23 12/11/2022 CBC (INCL UDES DIFF/ PLT) absolute basophils 10 cells /uL 0-200 normal Not Available [address], [address], 12/11/2022 15:36:52 12/08/19 23 12/11/2022 CBC (INCL UDES DIFF/ PLT) neutrophils 48.8 % normal Not Available [address], [address], 12/11/2022 15:36:52 12/08/19 23 12/11/2022 CBC (INCL UDES DIFF/ PLT) lymphocytes 38.4 % normal Not Available [address], [address], 12/11/2022 15:36:52 12/08/19 23 12/11/2022 CBC (INCL UDES DIFF/ PLT) monocytes 10.9 % normal Not Available [address], [address], 12/11/2022 15:36:52 12/08/19 23 12/11/2022 CBC (INCL UDES DIFF/ PLT) eosinophils 1.7 % normal Not Available [address], [address], 12/11/2022 15:36:52 12/08/19 23 12/11/2022 CBC (INCL UDES DIFF/ PLT) basophils 0.2 % normal Not Available [address], [address], 12/11/2022 15:36:52 12/08/19 23 12/11/2022 COMPR EHENS [place] METAB OLIC PANEL glucose 98 mg/dL 65-99 normal Fasti ng refer ence inter rufina Not Available [address], [address], 12/11/2022 15:36:52 12/08/19 23 12/11/2022 COMPR EHENS [place] METAB OLIC PANEL urea nitrogen (BUN) 19 mg/dL 7-25 normal Not Available [place] [address] [place], [address], 12/11/2022 15:36:52 12/08/19 23 12/11/2022 COMPR EHENS [place] METAB OLIC PANEL creatinine 1.01 mg/dL 0.60-1 .29 normal Not Available [address] [place] [address] [place], [address], 12/11/2022 15:36:52 12/08/19 23 12/11/2022 COMPR EHENS [place] METAB OLIC PANEL eGFR 92 mL/mi n/1.7 3m2 > or = 60 normal The eGFR is based on the CKD-E PI 2020 equat ion. To calcu late the new eGFR from a previ ous Creat inine or Cysta tin C resul t, go to https ://sujey jarrett.anjel alvarado/melvin mathews s/ kdoqi /gfr% 5Fcal culat or Not Available [place] [address] [place], [address], 12/11/2022 15:36:52 12/08/19 23 12/11/2022 COMPR EHENS [place] METAB OLIC PANEL BUN/creatini ne ratio not applic able (calc ) 6-22 Not Available [address], [address], 12/11/2022 15:36:52 12/08/19 23 12/11/2022 COMPR EHENS [place] METAB OLIC PANEL sodium 139 mmol/ L 135-14 6 normal Not Available [address], [address], 12/11/2022 15:36:52 12/08/19 23 12/11/2022 COMPR EHENS [place] METAB OLIC PANEL potassium 4.7 mmol/ L 3.5-5. 3 normal Not Available [place] [address] [place], [address], 12/11/2022 15:36:52 12/08/19 23 12/11/2022 COMPR EHENS [place] METAB OLIC PANEL chloride 104 mmol/ L 98-110 normal Not Available [address], [address], 12/11/2022 15:36:52 12/08/19 23 12/11/2022 COMPR EHENS [place] METAB OLIC PANEL carbon dioxide 25 mmol/ L 20-32 normal Not Available [address], [place], [address], 12/11/2022 15:36:52 12/08/19 23 12/11/2022 COMPR EHENS [place] METAB OLIC PANEL calcium 10.2 mg/dL 8.6-10 .3 normal Not Available [address], [address], 12/11/2022 15:36:52 12/08/19 23 12/11/2022 COMPR EHENS [place] METAB OLIC PANEL protein, total 7.5 g/dL 6.1-8. 1 normal Not Available [address], [address], 12/11/2022 15:36:52 12/08/19 23 12/11/2022 COMPR EHENS [place] METAB OLIC PANEL albumin 4.6 g/dL 3.6-5. 1 normal Not Available [address], [address], 12/11/2022 15:36:52 12/08/19 23 12/11/2022 COMPR EHENS [place] METAB OLIC PANEL globulin 2.9 g/dL_ (calc ) 1.9-3. 7 normal Not Available [address], [address], 12/11/2022 15:36:52 12/08/19 23 12/11/2022 COMPR EHENS [place] METAB OLIC PANEL albumin/glob ulin ratio 1.6 (calc ) 1.0-2. 5 normal Not Available [address], [address], 12/11/2022 15:36:52 12/08/19 23 12/11/2022 COMPR EHENS [place] METAB OLIC PANEL bilirubin, total 0.5 mg/dL 0.2-1. 2 normal Not Available [address], [address], 12/11/2022 15:36:52 12/08/19 23 12/11/2022 COMPR EHENS [place] METAB OLIC PANEL alkaline phosphatase 95 U/L 36-130 normal Not Available [address], [address], 12/11/2022 15:36:52 12/08/19 23 12/11/2022 COMPR EHENS [place] METAB OLIC PANEL AST 34 U/L 10-40 normal Not Available [address], [address], 12/11/2022 15:36:52 12/08/19 23 12/11/2022 COMPR EHENS [place] METAB OLIC PANEL ALT 55 U/L 9-46 high Not Available [address], [address], 12/11/2022 15:36:52 12/08/19 23 12/11/2022 MAGNE SIUM magnesium 2.2 mg/dL 1.5-2. 5 normal Not Available [address], [address], 12/11/2022 15:36:51 12/08/19 23 12/11/2022 LIPID PANEL , STAND JEANNETTE cholesterol, total 204 mg/dL <200 high Not Available [address], [address], 12/11/2022 15:36:51 12/08/19 23 12/11/2022 LIPID PANEL , STAND JEANNETTE HDL cholesterol 52 mg/dL > or = 40 normal Not Available [address], [address], 12/11/2022 15:36:51 12/08/19 23 12/11/2022 LIPID PANEL , STAND JEANNETTE triglyceride s 248 mg/dL <150 high If a non-f astin g speci men was colle cted, consi pearl repea t trigl yceri de testi ng on a fasti ng speci men if clini laci indic ated. Jareth díaz et al. J. of Clin. Lipid ol. 2015; 9:129 -169. Not Available [address], [address], 12/11/2022 15:36:51 12/08/19 23 12/11/2022 LIPID PANEL , STAND JEANNETTE LDL-choleste rol 117 mg/dL _(sofiya c) high Refer ence range : <100 Ana able range <100 mg/dL for prima ry preve ntion ; <70 mg/dL for patie nts with CHD or diabe tic patie nts with > or = 2 CHD risk facto rs. LDL-C is now calcu lated using the Virgie n-Hop kins calcu turner n, which is a valid ated novel metho d provi ding wally r accur acy than the Fried nelly equat ion in the estim ation of LDL-C . Virgie farooq SS et al. IDANIA. 2013; 310(1 9): 2061- 2068 (http ://ed ucati on.Qu estDi GeoVario. com/f aq/FA Q164) Not Available [address], [address], 12/11/2022 15:36:51 12/08/19 23 12/11/2022 LIPID PANEL , STAND JEANNETTE chol/HDLC ratio 3.9 (calc ) <5.0 normal Not Available [address], [address], 12/11/2022 15:36:51 12/08/19 23 12/11/2022 LIPID PANEL , STAND JEANNETTE non HDL cholesterol 152 mg/dL _(sofiya c) <130 high For patie nts with diabe viola plus 1 major ASCVD risk facto r, treat ing to a non-H DL-C goal of <100 mg/dL (LDL- C of <70 mg/dL ) is consi dered a thera peuti c optio n. Not Available [address], [address], 12/11/2022 15:36:51 02/19/20 24 02/22/2024 LIPID PANEL , STAND JEANNETTE cholesterol, total 190 mg/dL <200 normal Not Available [address], [address], 02/22/2024 14:49:30 02/19/20 24 02/22/2024 LIPID PANEL , STAND JEANNETTE HDL cholesterol 56 mg/dL > or = 40 normal Not Available [address], [address], 02/22/2024 14:49:30 02/19/20 24 02/22/2024 LIPID PANEL , STAND JEANNETTE triglyceride s 140 mg/dL <150 normal Not Available [address], [address], 02/22/2024 14:49:30 02/19/20 24 02/22/2024 LIPID PANEL , STAND JEANNETTE LDL-choleste rol 109 mg/dL _(sofiya c) high Refer ence range : <100 Ana able range <100 mg/dL for prima ry preve ntion ; <70 mg/dL for patie nts with CHD or diabe tic patie nts with > or = 2 CHD risk facto rs. LDL-C is now calcu lated using the [facility] n-Hop kins sophia tompkins n, which is a valid ated novel metho d provi ding wally r accur acy than the Fried nelly equat ion in the estim ation of LDL-C . Virgie n SS et al. IDANIA. 2013; 310(4 6): 2061- 2068 (http ://ed ucati on.Annelise Nayak daisykellie [employer]. com/f aq/FA Q164) Not Available [address], [address], 02/22/2024 14:49:30 02/19/20 24 02/22/2024 LIPID PANEL , STAND JEANNETTE chol/HDLC ratio 3.4 (calc ) <5.0 normal Not Available [address], [address], 02/22/2024 14:49:30 02/19/20 24 02/22/2024 LIPID PANEL , STAND JEANNETTE non HDL cholesterol 134 mg/dL _(sofiya c) <130 high For patie nts with diabe viola plus 1 major ASCVD risk facto r, treat ing to a non-H DL-C goal of <100 mg/dL (LDL- C of <70 mg/dL ) is consi alhajid a lauren gonzales optio n. Not Available [address], [address], 02/22/2024 14:49:30 02/19/20 24 02/22/2024 MAGNE SIUM magnesium 2.1 mg/dL 1.5-2. 5 normal Not Available [address] [address] [place], [address], 02/22/2024 14:49:32 02/19/20 24 02/22/2024 COMPR EHENS [place] METAB OLIC PANEL glucose 96 mg/dL 65-99 normal Fasti ng refer ence inter rufina Not Available [address] [address] [place], [address], 02/22/2024 14:49:33 02/19/20 24 02/22/2024 COMPR EHENS [place] METAB OLIC PANEL urea nitrogen (BUN) 13 mg/dL 7-25 normal Not Available [address], [address], 02/22/2024 14:49:33 02/19/20 24 02/22/2024 COMPR EHENS [place] METAB OLIC PANEL creatinine 0.92 mg/dL 0.60-1 .29 normal Not Available [address], [address], 02/22/2024 14:49:33 02/19/20 24 02/22/2024 COMPR EHENS [place] METAB OLIC PANEL eGFR 102 mL/mi n/1.7 3m2 > or = 60 normal Not Available [address], [address], 02/22/2024 14:49:33 02/19/20 24 02/22/2024 COMPR EHENS [place] METAB OLIC PANEL BUN/creatini ne ratio SEE NOTE: (calc ) 6-22 Not Repor cara: BUN and Creat inine are withi n refer ence range . Not Available [address], [address], 02/22/2024 14:49:33 02/19/20 24 02/22/2024 COMPR EHENS [place] METAB OLIC PANEL sodium 138 mmol/ L 135-14 6 normal Not Available [address], [address], 02/22/2024 14:49:33 02/19/20 24 02/22/2024 COMPR EHENS [place] METAB OLIC PANEL potassium 4.4 mmol/ L 3.5-5. 3 normal Not Available [address], [address], 02/22/2024 14:49:33 02/19/20 24 02/22/2024 COMPR EHENS [place] METAB OLIC PANEL chloride 105 mmol/ L 98-110 normal Not Available [address] [place], [address], 02/22/2024 14:49:33 02/19/20 24 02/22/2024 COMPR EHENS [place] METAB OLIC PANEL carbon dioxide 22 mmol/ L 20-32 normal Not Available [address], [address], 02/22/2024 14:49:33 02/19/20 24 02/22/2024 COMPR EHENS [place] METAB OLIC PANEL calcium 9.9 mg/dL 8.6-10 .3 normal Not Available [address], [address], 02/22/2024 14:49:33 02/19/20 24 02/22/2024 COMPR EHENS [place] METAB OLIC PANEL protein, total 7.8 g/dL 6.1-8. 1 normal Not Available [address], [address], 02/22/2024 14:49:33 02/19/20 24 02/22/2024 COMPR EHENS [place] METAB OLIC PANEL albumin 4.5 g/dL 3.6-5. 1 normal Not Available [address], [address], 02/22/2024 14:49:33 02/19/20 24 02/22/2024 COMPR EHENS [place] METAB OLIC PANEL globulin 3.3 g/dL_ (calc ) 1.9-3. 7 normal Not Available [address], [address], 02/22/2024 14:49:33 02/19/20 24 02/22/2024 COMPR EHENS [place] METAB OLIC PANEL albumin/glob ulin ratio 1.4 (calc ) 1.0-2. 5 normal Not Available [address], [address], 02/22/2024 14:49:33 02/19/20 24 02/22/2024 COMPR EHENS [place] METAB OLIC PANEL bilirubin, total 0.3 mg/dL 0.2-1. 2 normal Not Available [address], [address], 02/22/2024 14:49:33 02/19/20 24 02/22/2024 COMPR EHENS [place] METAB OLIC PANEL alkaline phosphatase 107 U/L 36-130 normal Not Available [facility] [employer] [address] [address] [place], [address], 02/22/2024 14:49:33 02/19/20 24 02/22/2024 COMPR EHENS [place] METAB OLIC PANEL AST 30 U/L 10-40 normal Not Available [address], [address], 02/22/2024 14:49:33 02/19/20 24 02/22/2024 COMPR EHENS [place] METAB OLIC PANEL ALT 47 U/L 9-46 high Not Available [address], [address], 02/22/2024 14:49:33 02/19/20 24 02/22/2024 CBC (INCL UDES DIFF/ PLT) white blood cell count 5.8 thous and/u L 3.8-10 .8 normal Not Available [address], [address], 02/22/2024 14:49:34 02/19/20 24 02/22/2024 CBC (INCL UDES DIFF/ PLT) red blood cell count 4.97 francisco on/uL 4.20-5 .80 normal Not Available [address], [address], 02/22/2024 14:49:34 02/19/20 24 02/22/2024 CBC (INCL UDES DIFF/ PLT) hemoglobin 15.2 g/dL 13.2-1 7.1 normal Not Available [address], [address], 02/22/2024 14:49:34 02/19/20 24 02/22/2024 CBC (INCL UDES DIFF/ PLT) hematocrit 46.2 % 38.5-5 0.0 normal Not Available [address], [address], 02/22/2024 14:49:34 02/19/20 24 02/22/2024 CBC (INCL UDES DIFF/ PLT) MCV 93.0 fL 80.0-1 00.0 normal Not Available [address], [address], 02/22/2024 14:49:34 02/19/20 24 02/22/2024 CBC (INCL UDES DIFF/ PLT) MCH 30.6 pg 27.0-3 3.0 normal Not Available [address], [address], 02/22/2024 14:49:34 02/19/20 24 02/22/2024 CBC (INCL UDES DIFF/ PLT) MCHC 32.9 g/dL 32.0-3 6.0 normal Not Available [address], [address], 02/22/2024 14:49:34 02/19/20 24 02/22/2024 CBC (INCL UDES DIFF/ PLT) RDW 14.2 % 11.0-1 5.0 normal Not Available [address], [address], 02/22/2024 14:49:34 02/19/20 24 02/22/2024 CBC (INCL UDES DIFF/ PLT) platelet count 246 thous and/u L 140-40 0 normal Not Available [address], [address], 02/22/2024 14:49:34 02/19/20 24 02/22/2024 CBC (INCL UDES DIFF/ PLT) MPV 11.0 fL 7.5-12 .5 normal Not Available [address], [address], 02/22/2024 14:49:34 02/19/20 24 02/22/2024 CBC (INCL UDES DIFF/ PLT) absolute neutrophils 3271 cells /uL 1500-7 800 normal Not Available [address], [address], 02/22/2024 14:49:34 02/19/20 24 02/22/2024 CBC (INCL UDES DIFF/ PLT) absolute lymphocytes 1827 cells /uL 850-39 00 normal Not Available [address], [address], 02/22/2024 14:49:34 02/19/20 24 02/22/2024 CBC (INCL UDES DIFF/ PLT) absolute monocytes 539 cells /uL 200-95 0 normal Not Available [address], [address], 02/22/2024 14:49:34 02/19/20 24 02/22/2024 CBC (INCL UDES DIFF/ PLT) absolute eosinophils 151 cells /uL 15-500 normal Not Available [address], [address], 02/22/2024 14:49:34 02/19/20 24 02/22/2024 CBC (INCL UDES DIFF/ PLT) absolute basophils 12 cells /uL 0-200 normal Not Available [address], [address], 02/22/2024 14:49:34 02/19/20 24 02/22/2024 CBC (INCL UDES DIFF/ PLT) neutrophils 56.4 % normal Not Available [address] [place], [address], 02/22/2024 14:49:34 02/19/20 24 02/22/2024 CBC (INCL UDES DIFF/ PLT) lymphocytes 31.5 % normal Not Available [address], [address], 02/22/2024 14:49:34 02/19/20 24 02/22/2024 CBC (INCL UDES DIFF/ PLT) monocytes 9.3 % normal Not Available [facility] [address], [address], 02/22/2024 14:49:34 02/19/20 24 02/22/2024 CBC (INCL UDES DIFF/ PLT) eosinophils 2.6 % normal Not Available [address], [address], 02/22/2024 14:49:34 02/19/20 24 02/22/2024 CBC (INCL UDES DIFF/ PLT) basophils 0.2 % normal Not Available [address], [address], 02/22/2024 14:49:34 02/19/20 24 02/22/2024 T4, FREE T4, free 0.8 NG/dL 0.8-1. 8 normal Not Available [address], [address], 02/22/2024 14:49:35 02/19/20 24 02/22/2024 VITAM IN B12 vitamin B12 451 pg/mL 200-11 00 normal Not Available [address], [address], 02/22/2024 14:49:36 02/19/20 24 02/22/2024 PSA, TOTAL PSA, total 0.64 NG/mL < or = 4.00 normal The total PSA value from this assay josh heller is stand ardiz ed again st the WHO stand jeannette. The test resul t will be appro ximat sesar 20% lower when lauri red to the equim olar- stand ardiz ed total PSA (Reynolds man Coult er). Lauri rison of seria l PSA resul ts shoul d be inter prete d with this fact in mind. This test was perfo rmed using the Sieme ns chemi lumin escen t metho d. Value s obtai lynn from diffe rent assay metho ds canno t be used inter clark eably . PSA level s, regar dless of value , shoul d not be inter prete d as absol chenega evide nce of the prese nce or absen ce of disea se. Not Available [employer] [address] [address] [place], [address], 02/22/2024 14:49:37 02/19/20 24 02/22/2024 TSH TSH 1.16 mIU/L 0.40-4 .50 normal Not Available [employer] [address] [address] [place], [address], 02/22/2024 14:49:38 02/19/20 24 02/22/2024 TESTO STERO NE, FREE (DIAL YSIS) AND TOTAL ,MS testosterone , total, MS 213 NG/dL 250-11 00 low Men with clini laci signi fican t hypog onada l sympt oms and testo stero ne value s repea tedly in the range of the 200-3 00 ng/dL or less, may benef it from testo stero ne treat ment after adequ ate risk and benef its couns eling . For addit ional infor mackenzie nova e refer to https ://ed ucati on.qu nikitadi GeoVario. com/f aq/FA J206 (This link is being provi ded for infor mary nal/e ducat ional purpo ses only. ) (Note ) This test was devel oped and its kassi tical perfo rmanc e rashi cteri stics have been deter mined by [employer]. It has not been clear ed or appro mayi by the FDA. This assay has been valid ated pursu ant to the CLIA regul ation s and is used for clini sofiya purpo ses. Not Available [address], [address], 02/22/2024 14:49:39 02/19/20 24 02/22/2024 TESTO STERO NE, FREE (DIAL YSIS) AND TOTAL ,MS testosterone , free 37 pg/mL 35.0-1 55.0 (Note ) This test was devel oped and its kassi tical perfo rmanc e rashi cteri stics have been deter mined by [employer]. It has not been clear ed or appro mayi by the FDA. This assay has been valid ated pursu ant to the CLIA regul ation s and is used for clini sofiya purpo ses. MDF med fusio n [address] [facility] [address] [facility] [address] [phone] [facility] zoey Gupta MD, PhD Not Available [facility] [address] [address] [place], [address], 02/22/2024 14:49:39 08/07/20 24 08/08/2024 FSH FSH 5.1 mIU/m L 1.4-12 .8 normal Not Available [facility] [address] [place], [address], 08/08/2024 08:31:23 08/07/20 24 08/08/2024 LH LH 2.8 mIU/m L 1.5-9. 3 normal Not Available [facility] [address] [address] [place], [address], 08/08/2024 08:31:24 08/07/20 24 08/08/2024 PROLA CTIN prolactin 5.4 NG/mL 2.0-18 .0 normal Not Available [facility] [address] [place], [address], 08/08/2024 08:31:24 11/18/20 24 11/25/2024 BIOAV AILAB LE + FREE TESTO ST % free testosterone (dialysi 2.0 % This test was devel oped and its perfo rmanc e rashi cteri stics deter mined by [employer]. It has not been clear ed or appro mayi by the Food and Drug Admin istra tion. Refer ence Range : Adult Males : 1.5 - 3.2 Not Available [facility] (Lab) [address] [place], [address], 11/25/2024 16:08:51 11/18/20 24 11/25/2024 BIOAV AILAB LE + FREE TESTO ST bioavailable + free testost 126 NG/dL Refer ence Range : Males (50 - 69y): 95 - 285 Perfo rmed at: [facility] [employer] [address] [place] [address] Lab Direc tor: Stas emery MD, Phone : [phone] Not Available [facility] (Lab) [address] [place], [address], 11/25/2024 16:08:51 11/18/20 24 11/25/2024 BIOAV AILAB LE + FREE TESTO ST bioavailable testosterone , % 38.8 % Not Available [facility] (Lab) [address] [place], [address], 11/25/2024 16:08:51 11/18/20 24 11/25/2024 BIOAV AILAB LE + FREE TESTO ST free testosterone ,serum 65 pg/mL Refer ence Range : Adult Males : 52 - 280 Not Available [facility] (Lab) [address] [place], [address], 11/25/2024 16:08:51 11/18/20 24 11/25/2024 BIOAV AILAB LE + FREE TESTO ST testosterone ,total 324 NG/dL This test was devel oped and its perfo rmanc e rashi cteri stics deter mined by [employer]. It has not been clear ed or appro mayi by the Food and Drug Admin istra tion. Refer ence Range : Adult Males >18 years 264 - 916 This [employer] LC/MS -MS metho d is curre ntly certi fied by the CDC Hormo ne Stand ardiz ation Progr am (HoST ). Adult male refer ence inter rufina is based on a popul ation of healt hy nonob mary males (BMI <3 0) betwe en 19 and 39 years old. Woody díaz, et.al . JCEM 2017, 102;1 161-1 173 PMID: 65175 103. Not Available [facility] ([facility]) [address] [place], [address], 11/25/2024 16:08:51 05/26/20 22 05/25/2022 MRI, cervi sofiya spine , w/o contr ast [facility] [address] [facility] [place] [address] [phone] Patien t Name: IVANA HERNANDEZ Access ion #: [id number] Sex: M : 1974 5 Locati on: RAD Attend ing Physic bruno: BIANCA GIPSON CE Orderi ng Physic bruno: BIANCA GIPSON CE Exam Date: 022 4:55 PM Exam Name: MRI C SPINE WO Admitt ing Diagno sis(es ): RADIOL OGY REPORT - FINAL EXAM: MRI C SPINE WO HISTOR Y: cervic al radicu lopath y lt side neck/p opping ,crack ing COMPAR MILY: None. TECHNI QUE: Multip lanar multis equenc e noncon trast MR images of the cervic al spine were perfor med. Sagita l: T1, T2, Axial: T1, PBSG, Right Sagita l/Obli que: T2, Left Sagita l/Obli que: T2. FINDIN GS: Osseou s: Unrema rkable Spinal cord: Unrema rkable Page 1 of 2 [facility] Patien t Name: IVANA HERNANDEZ Access ion #: [id number] Sex: M : 1974 5 Exam Date: 4:55 PM Exam Name: MRI C SPINE WO Admitt ing Diagno sis(es ): Prever tebral soft tissue s: Unrema rkable Disc spaces : Degene rative desicc ation signal intens ity throug hout the cervic al spine with relati ve sparin g of C7-T1 C2-3 throug h C7-T1: No eviden ce of centra l or neural forami nal stenos is. Parave rtebra l soft tissue s: Unrema rkable IMPRES PIEDAD: See above. Create d and electr onical ly signed by: Cas marin MD Signed Date: 2:11 PM (CT) Dictat ed by: Cas marin MD DD: 2:11 PM (CT) DT: 2:11 PM (CT) Page 2 of 2 [id number] [facility] (Imaging) [address] [place], [address], 01/25/2023 14:17:46 Result Notes None recorded. 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 3 14:14:52 Stress 91072561 Active Not Available [facility] 3 14:14:52 Obstructiv e sleep apnea syndrome 49182497 Active 2018 Not Available [facility] 3 14:14:53 Fatigue 49639554 Active Not Available 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 Procedures Surgical History None recorded. Imaging Results Imaging Date Name Status LastModified by Organiz ation Details LastModified Time 05/25/2022 MRI, cervical spine, w/o contrast completed [id number] [facility] (Imaging) [address] [facility], [place], [address], 01/25/2023 14:17:46 Procedure Notes None recorded. Medical Equipment None Reported. Medications Name Sig Start Date Stop Date Status Note LastModified by Organization Details LastModified Time celecoxib 200 mg capsule TK ONE C PO D 02/07 completed Not Available Not Available Not Available prednisone 10 mg tablet Take by oral route. active Not Available Not Available No t Available Claritin 10 mg tablet Take 1 tablet every day by oral route. 2019 active Not Available Not Available Not Avai lable meloxicam 15 mg tablet TK 1 T PO ONCE D active Not Available Not Available No t Available Tamiflu 75 mg capsule TK 1 C PO BID FOR 5 DAYS 02/07 completed Not Available Not Available Not Available amoxicillin 875 mg tablet TK 1 T PO Q 12 H FOR 10 DAYS 02/07 completed Not Available Not Available Not Available Soma 350 mg tablet Take 1 tablet 3 times a day by oral route as needed. 09/16 completed Not Available Not Available Not Available ranitidine 150 mg tablet Take 1 tablet twice a day by oral route. 10/19 completed Not Available Not Available Not Available lidocaine 5 % topical patch APPLY PATCH TO HEEL BID 02/07 completed Not Available Not Available Not Available bupropion HCl 75 mg tablet take 1 po tid 02/07 completed Not Available Not Available Not Available diclofenac potassium 50 mg tablet Take 1 tablet twice a day by oral route for 30 days. 09/21 completed Not Available Not Available Not Available omeprazole 20 mg capsule,del ayed release TAKE 1 CAPSULE BY MOUTH DAILY 2023 active Not Available Not Available Not Avai lable methylpredn isolone 4 mg tablets in a dose pack FPD 02/07 completed Not Available Not Available Not Available Prilosec OTC 20 mg tablet,vicky yed release Take 1 tablet every day by oral route. 04/27 completed Not Available Not Available Not Available Multivitami n 50 Plus tablet Take 1 tablet every day by oral route. active Not Available Not Available No t Available duloxetine 60 mg capsule,del ayed release TAKE ONE CAPSULE BY MOUTH DAILY. APPOINTME NT NEEDED FOR FURTHER REILLS. 02/07 completed Not Available Not Available Not Available multivitami n 02/06 completed Not Available Not Available Not Available ketorolac 30 mg/mL injection solution Inject 1 mL every day by intraveno us route. 02/07 completed Not Available Not Available Not Available Vicodin 5 mg-300 mg tablet TK 1 T PO Q 6 H PRN active Not Available Not Available No t Available Virtussin AC 10 mg-100 mg/5 mL oral liquid TK 5-10 ML PO BID PRN 02/07 completed Not Available Not Available Not Available Vitals Date Recorded Body mass index (BMI) Body height Oxygen saturation Oxygen saturation in Arterial blood by Pulse oximetry Heart rate Body temperature Body weight Systolic blood pressure Diastolic blood pressure Provider Name and Address Organization Details Last Updated DateTime 2 37.4 kg/m2 170.18 cm 96 % 96 % 94 /min 96.9 [degF] 915708. 78 g 120 mm[Hg] 84 mm[Hg] Not Available [facility] 3 14:14:00 Date Recorded Body mass index (BMI) Body height Oxygen saturation Oxygen saturation in Arterial blood by Pulse oximetry Heart rate Body temperature Body weight Systolic blood pressure Diastolic blood pressure Provider Name and Address Organization Details Last Updated DateTime 3 39.2 kg/m2 170.18 cm 98 % 98 % 74 /min 97.4 [degF] 302680. 09 g 140 mm[Hg] 80 mm[Hg] Not Available [facility] 3 14:14:00 Date Recorded Body height Body mass index (BMI) Body weight Body temperature Heart rate Oxygen saturation Oxygen saturation in Arterial blood by Pulse oximetry Systolic blood pressure Diastolic blood pressure Provider Name and Address Organization Details Last Updated DateTime 3 170.18 cm 37.9 kg/m2 470907. 35 g 96.8 [degF] 98 /min 96 % 96 % 124 mm[Hg] 86 mm[Hg] Maggie Wagner MA [employer] 3 14:37:16 Date Recorded Body height Body mass index (BMI) Body weight Heart rate Body temperature Oxygen saturation Oxygen saturation in Arterial blood by Pulse oximetry Systolic blood pressure Diastolic blood pressure Provider Name and Address Organization Details Last Updated DateTime 4 170.18 cm 39.6 kg/m2 556750. 87 g 100 /min 97 [degF] 96 % 96 % 118 mm[Hg] 80 mm[Hg] Jessica Braswell [employer] [facility] [employer] 4 11:37:37 Date Recorded Body height Body mass index (BMI) Body weight Heart rate Body temperature Oxygen saturation Oxygen saturation in Arterial blood by Pulse oximetry Systolic blood pressure Diastolic blood pressure Provider Name and Address Organization Details Last Updated DateTime 4 170.18 cm 39.5 kg/m2 262257. 28 g 94 /min 97.2 [degF] 97 % 97 % 128 mm[Hg] 88 mm[Hg] LIZETTE Mendez [place] [employer] [facility] [employer] [facility] 4 11:36:48 Social History Question Answer Notes LastModified by Organizat ion Details LastModified Time Tobacco Smoking Status Never Smoker Not Available [facility] 01/25/2023 14:11:44 What Is Your Level Of Alcohol Consumption? Occasional [id number] Information not available 01/25/2023 In The 14 Days Before Symptom Onset, Have You Had Close Contact With A Laboratory-confir med COVID-19 While That Case Was Ill? No [id number] Information not available 01/25/2023 In The 14 Days Before Symptom Onset, Have You Had Close Contact With A Person Who Is Under Investigation For COVID-19 While That Person Was Ill? No [id number] Information not available 01/25/2023 Do You Or Have You Ever Used E-cigarettes Or Vape? 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 04/09/2021 [id number] Information not available 01/25/2023 Do You Or Have You Ever Used Smokeless Tobacco? Never Used Smokeless Tobacco [id number] Information not available 01/25/2023 Sex: Unknown Functional Status None recorded. Mental Status None recorded. Family History Nothing Reported Notes:Mother 70 years old an d in good health Father living 74 lymphoma and CKD One sister living and in good health Medical History Condition Response NERVE DISEASE N BLINDNESS N RHEUMATIC FEVER N KIDNEY STONES N BLADDER PROBLEMS N MRSA N OTHER # 1 N POLIO N LUNG DISEASE/DISORDER N RADIATION / CHEMOTHERAPY N COPD N Other # 2 N BLOOD DISEASES N EAR OR HEARING PROBLEMS N MUMPS N BOWEL PROBLEMS N DEPRESSION (INCLUDING POST ) N STROKE/TIA N ULCERS N BENIGN PROSTATIC HYPERPLASIA N MEASLES N MYOCARDIAL INFARCTION N OBESITY N GERD/NAUSEA N ANEURYSM N URINARY/BLADDER/KIDNEY PROBLEMS N CORONARY ARTERY DISEASE (CAD) N ADDICTION CONCERNS N Impotence N ENDOMETRIOSIS N USE OF BLOOD THINNERS N SKIN PROBLEMS N GASTROINTESTINAL DISORDER N PERIPHERAL VASCULAR DISEASE N MUSCLE,JOINT OR BONE PROBLEMS N GASTROINTESTINAL BLEEDING N BLOOD CLOTS N ASTHMA N CATARACTS N ERECTILE DYSFUNCTION N VARICOSITIES N GI PROBLEMS N Low Testosterone N INFERTILITY N AIDS/HIV N CHEMOTHERAPY / RADIATION N LIVER DISEASE N MALE HYPOGONADISM N HYPERTENSION N Deficiency N TOURETTE'S N ANXIETY DISORDER N BLOOD TRANSFUSION N ANEMIA/BLOOD DISORDER N CHRONIC EAR INFECTIONS N BRONCHITIS N TUBERCULOSIS N GLAUCOMA N FOOT PROBLEM N DIVERTICULITIS N SLEEP APNEA Y CHICKENPOX N INFECTIOUS DISEASE N PROSTATE N HEART ARRHYTHMIA N INSOMNIA N HIGH CHOLESTEROL / HYPERLIPIDEMIA N EYE PROBLEMS N HYPERTHYROIDISM N EDEMA N CHRONIC PAIN SYNDROME N HYPOTHYROIDISM N CONSTIPATION N CAROTID BLOCKAGE N BACK / NECK PROBLEMS N HAVE YOU BEEN HOSPITALIZED OR SEEN IN [facility] IN THE PAST YEAR ? N ATHEROSCLEROSIS N BREAST PROBLEMS N DIALYSIS N ECZEMA N OSTEOPOROSIS N ARTHRITIS N NO SIGNIFICANT PAST MEDICAL HISTORY N APPENDICITIS N DIABETES, TYPE N BAD TEETH N ENT N HEARTBURN / REFLUX Y AUTISM SPECTRUM DISORDER (ASD) N HEPATITIS / LIVER DISEASE N GOUT N SLEEP DISORDER N ALZHEIMER'S DISEASE N Brain Problems N DEMENTIA N HERPES N SEIZURES/EPILEPSY N HEADACHES/MIGRAINES N VASCULAR DISEASE N PACEMAKER N Blood Disorder N DIZZINESS N HEART DISEASE/HEART PROBLEMS N KIDNEY DISEASE N MULTIPLE SCLEROSIS N CANCER: SPECIFY N CARDIAC ARRHYTHMIA N ATRIAL FIBRILLATION N Gall Stones N PULMONARY EMBOLISM N AUTOIMMUNE DISEASE N Immunizations Vaccine Type Date Status Note Provider Nam e and Address Organization Details Recorded Time SARS-COV-2 (COVID-19) vaccine, UNSPECIFIED 1 completed Not Available [facility] 01/25/2023 14:17:35 SARS-COV-2 (COVID-19) vaccine, UNSPECIFIED 1 completed Not Available [facility] 01/25/2023 14:17:35 Influenza, high-dose, trivalent, PF 4 completed Not Available [facility] 01/25/2023 14:17:35 Past Encounters Encounter ID Performer Location Encounter Start Date Encounter Closed Date Diagnosis/Indication Diagnosis SNOMED-CT Code Diagnosis ICD10 Code Diagnosis Note [id number] [facility] [address] [address] 02/19/2021 00:00:00 02/19/2021 17:16:39 [id number] [facility] Pulmonolo gy [address] [address] 04/09/2021 00:00:00 04/09/2021 17:16:53 [id number] [facility] Internal Med [facility] Maninder y , [facility] [place] [address] 04/27/2021 00:00:00 04/27/2021 15:29:24 [id number] [facility] Internal Med [facility] [address] [address] 10/27/2021 00:00:00 10/27/2021 17:25:05 [id number] [facility] Internal Med [facility] [address] [address] 04/27/2022 00:00:00 04/27/2022 17:12:49 [id number] [facility] Internal Med [facility] [address] [address] 11/30/2022 00:00:00 11/30/2022 17:12:15 [id number] Mendoza Gipson MD [facility] Internal Med [facility] [address] [address] 06/12/2023 14:27:12 06/12/2023 15:03:03 Adult health examination 677424300 Z00.00 Depression screening 171 901031 Z13.31 Gastroesop hageal reflux disease 761021049 K21.9 Obstructiv e sleep apnea syndrome 14500033 G47.33 Obesity 388624265 E66.9 [id number] Mendoza Gipson MD S_G Internal Med [facility] [address] [address] 02/07/2024 11:18:46 02/07/2024 12:03:22 Obstructive sleep apnea syndrome 37408603 G47.33 Gastroesop hageal reflux disease 573037684 K21.9 Testicular hypofunction 668213134 E29.1 Obese class II 214545080 1 25678 E66.9 Disorder of prostate 302 75367 N42.9 Screening for cardiovascular system disease 704779900 Z13.6 [id number] Mendoza Gipson MD [facility] Internal Med [facility] [address] [place] [address] [address] 08/07/2024 11:32:51 08/07/2024 12:05:12 Adult health examination 263626816 Z00.00 Depression screening 171 940461 Z13.31 Obstructiv e sleep apnea syndrome 01927087 G47.33 Testicular hypofunction 271062241 E29.1 Gastroesop hageal reflux disease 731818615 K21.9 Obese class II 627019164 1 82105 E66.9 Health Concerns Section Related Observation LastModified by Organization Detai ls LastModified Time None Recorded Concern Status LastModified by Organization Details LastModified Time None Recorded Advance Directives Directive None Recorded Payers Encounter Date Sequence Insurance Name Policy Number Policy Billings[place] Covered Member ID [place] Member ID Guarantor Name 06/12/2023 2 [place] [id number] Alex Plummer Eze [id number] Alex Plummer Eze 06/12/2023 1 [employer] - [place]ET[place] [id number] Alex Plummer Jackydannysonja [id number] Alex Plummer Jackydannysonja 02/07/2024 1 [employer] - [place] [id number] Alex Plummer Jackydannysonja [id number] Alex Plummer Eze 08/07/2024 1 [employer] [place] [id number] Alex Plummer Jackydannydallin [id number] Alex Plummer Jackydannysonja Notes Date Note Type Note Provider Name and Address Organization Details Recorded Time 3 text/html Patient Name: Alex Popeate Of Service: Monday ( 06.12.2023 ): 1975 Age: 48 There has been approximately a 8 lb weight loss since 11/30/2022. This represents approximately a 3.2% change in weight. Weight change attributable to lifestyle changes. Vital Signs:Blood Pressure: Sitting Rt. Arm 124/86Pulse: Sitting 98 /min and RegularRespirations: 12Height 67 in or 1.7 mWeight 242 lb or 109.8 kgBMI 37.9Temperature: 96.8 F or 36.0 CPulse Oximetry: 96 % at rest on no oxygen Chief Complaint: Well Patient Problems or conditions discussed in the HPI were the only ones reviewed during the encounter.Only social and family history addressed in the HPI were reviewed during this encounter. Attendant(s): None Constitutional and Systemic Symptoms: none Medication Reconciliation: from medication list. History of Present Illness In for a well patient check up. Last well patient evaluation was approximately one year. No interval complaints of any new major medical problems. No hx of any chest pain, shortness of breath, nausea, vomiting, diarrhea or constitutional symptoms.PSA already performedColonoscopy or Cologuard: not dueImmunizations Up To Date or refuses to takeNo Significant Change In Family HxFall Risk normalDepression Score: 0Hearing normalVisual normalReviewed Smoking and Drug HistoryReviewed Immunization HistoryInstructed on importance of weight on diabetes, heart and other diseases aggravated by obesity.Instructed on importance of weight on diabetes, heart and other diseases aggravated by obesity. #1. Hx of esophageal reflux currently stable. Hx of Complications: none The severity, duration and intensity of symptoms have improved. Frequency: most meals Treatment consists medications taken on a regular basis. Current therapy includes Omeprazole. There has been no nausea, eructation, vomiting, hematemesis, dysphagia and odynophagia. No change in he frequency or intensity of symptoms. Has had no melena. Has had no hematemesis. Discuss the possibility of trying to reduce the frequency of the use of any PPI inhibitors or H2 antagonist to see if symptoms can be controlled with last intensive therapy #2. Sleep Apnea: Type: STAN Current doing well. No significant daytime somnolence or problems performing daily chores. Using CPAP on nightly basis . Overall has shown considerable improvement.Redford Sleepiness ScaleSitting and ReadinWatching TV: 1Sitting Inactive in a Public Place: 1Passenger in a Car: 0Lying Down in Afternoon: 1Sitting and Talking to someone: 1Sitting quietly after lunch: 0In a car while stopped or drivinScore Interpretation: 0-7 No evidence of abnormally sleepy #3. Hx of obesity. Currently overweight. Has tried numerous dietary support and supplements with no benefit. Instructed on the health consequences of the obese status particularly cancer - diabetes and heart disease. Discussed new modalities of weight loss including GLP-1 medications that are used to treat diabetes. Potential candidate for bariatric surgery: No. Wishes to be evaluated by Dietary: No and was offered to be evaluated and instructed by touch up painter on weight loss diet.Medication List Reviewed and Reconciled 06/12/2023Multivitamin DailyCpap As DirectedOmeprazole 20 MG (CAPSULE, DELAYED REL PELLETS - ORAL) One DailyVaccination and Imvonrmukvfu1131-71 Covid PfizerSurgical HistoryPlanter Fascitis, Bilateral Inguinal HerniaPreventative Testing Confirmed by Our Qgxedht5412/08/2022 ALBUMIN 4.6 G/DL12/08/2022 PSA 0.59 NG/ML11/10/2021 COLOGUARD 11/10/2024Social HistoryDoes not current smoke. Stopped 2003. Smoke 1/2 pack daily for 10 yearsDrinks socially up to 12 pack per weekWorks as a steel workerFamily HistoryMother 72 years old and in good healthFather 74 lymphoma and CKDOne sister living and in good health Mendoza Gipson MD [address] [facility], [facility] [address], [place], [address], [facility] [employer] 06/12/2023 15:01:15 4 text/html Patient Name: Alex Lugo Of Service: Monday ( 02.07.2024 ): 1975 Age: 48 There has been approximately a 11 lb weight gain since 06/12/2023. This represents approximately a 4.5% change in weight. Weight change attributable to lifestyle changes. Vital Signs:Blood Pressure: Sitting Rt. Arm 118/80Pulse: Sitting 100 /min and RegularRespiratory Rate: 12Height 67 in or 1.7 mWeight 253 lb or 114.8 kgBMI 39.6Temperature: 97 F or 36.1 CPulse Oximetry: 96 % at rest on no oxygen Chief Complaint: Addressed in HPI Problems or conditions discussed in the HPI were the only ones reviewed during the encounter.Only social and family history addressed in the HPI were reviewed during this encounter. Attendant(s): NoneConstitutional and Systemic Symptoms:none Medication Reconciliation: from medication list. History of Present Illness #1. Sleep Apnea: Type: STAN Current doing well. No significant daytime somnolence or problems performing daily chores. Using CPAP on nightly basis . Overall has shown considerable improvement.Redford Sleepiness ScaleSitting and ReadinWatching TV: 1Sitting Inactive in a Public Place: 1Passenger in a Car: 1Lying Down in Afternoon: 1Sitting and Talking to someone: 0Sitting quietly after lunch: 1In a car while stopped or drivinScore Interpretation: 0-7 No evidence of abnormally sleepy #2. Hx of esophageal reflux currently stable. Hx of Complications: none The severity, duration and intensity of symptoms have improved. Frequency: most meals Treatment consists medications taken on a regular basis. Current therapy includes Omeprazole. There has been no nausea, eructation, vomiting, hematemesis, dysphagia, velopharyngeal insufficiency and odynophagia. No change in he frequency or intensity of symptoms. Has had no melena. Has had no . Discussed use of H2 antagonists and the possibility of trying to reduce the frequency of the use of any PPI inhibitors and try H2 antagonists to see if symptoms can be controlled with lease intensive therapy since a number of complications are associated with chronic prolonged use of PPI inhibitors. #3. Testicular Hypofunction: Stable. Libido and energy levels are good. No significant problems with performing daily activities. Taking medication: no medication. No other systemic complaints related to hypogonadism. #4. Hx of obesity. Currently Class 2 Obesity BMI 35-39.99. Has tried numerous dietary support and supplements with no benefit. Instructed on the health consequences of the obese status particularly cancer - diabetes and heart disease. Discussed new modalities of weight loss including GLP-1 medications that are used to treat diabetes. Potential candidate for bariatric surgery: Yes but does no wish to pursue. Wishes to be evaluated by Dietary: No and was offered to be evaluated and instructed by touch up painter on weight loss diet. Active Medication ListMultivitamin DailyCpap As DirectedOmeprazole 20 MG (CAPSULE, DELAYED REL PELLETS - ORAL) One Daily Vaccination and Zcampyutathg2103-30 [facility] Akgztzy3522-91 Planter Jevzblpi3575-89 Bilateral Inguinal Hernia Preventative Pzzncmv5312/08/2022 ALBUMIN 4.6 G/DL N012/08/2022 PSA 0.59 NG/ML N101/11/2021 COLOGUARD 11/10/2024 Social HistoryDoes not current smoke. Stopped 2003. 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 Arm 128/88Pulse: Sitting 94 /min and RegularRespiratory Rate: 14Height 67 in or 1.7 mWeight 252 lb or 114.3 kgBMI 39.5Temperature: 97.2 F or 36.2 CPulse Oximetry: 97 % at rest on no oxygen Chief Complaint: Addressed in HPI Problems or conditions discussed in the HPI were the only ones reviewed during the encounter.Only social and family history addressed in the HPI were reviewed during this encounter. Attendant(s): NoneConstitutional and Systemic Symptoms:none Medication Reconciliation: from medication list. History of Present Illness In for a well patient check up. Last well patient evaluation was approximately one year. No interval complaints of any new major medical problems. No hx of any chest pain, shortness of breath, nausea, vomiting, diarrhea or constitutional symptoms.PSA already performedColonoscopy or Cologuard: not dueImmunizations Up To Date or refuses to takeNo Significant Change In Family HxFall Risk normalDepression Score: 0Hearing normalVisual normalReviewed Smoking and Drug HistoryReviewed Immunization HistoryInstructed on importance of weight on diabetes, heart and other diseases aggravated by obesity.Instructed on importance of weight on diabetes, heart and other diseases aggravated by obesity. #1. Sleep Apnea: Type: STAN Current doing well. No significant daytime somnolence or problems performing daily chores. Using CPAP on nightly basis . Overall has shown considerable improvement.Redford Sleepiness ScaleSitting and ReadinWatching TV: 1Sitting Inactive in a Public Place: 1Passenger in a Car: 1Lying Down in Afternoon: 1Sitting and Talking to someone: 0Sitting quietly after lunch: 1In a car while stopped or drivinScore Interpretation: 0-7 No evidence of abnormally sleepy #2. Testicular Hypofunction: Stable. Libido and energy levels are good. No significant problems with performing daily activities. Taking medication: no medication. No other systemic complaints related to hypogonadism. #3. Hx of esophageal reflux currently stable. Hx of Complications: none The severity, duration and intensity of symptoms have improved. Frequency: most meals Treatment consists medications taken on a regular basis. Current therapy includes Omeprazole. There has been no nausea, eructation, vomiting, hematemesis, dysphagia, velopharyngeal insufficiency and odynophagia. No change in he frequency or intensity of symptoms. Has had no melena. Has had no . Discussed use of H2 antagonists and the possibility of trying to reduce the frequency of the use of any PPI inhibitors and try H2 antagonists to see if symptoms can be controlled with lease intensive therapy since a number of complications are associated with chronic prolonged use of PPI inhibitors. #4. Hx of obesity. Currently Class 2 Obesity BMI 35-39.99. Has tried numerous dietary support and supplements with no benefit. Instructed on the health consequences of the obese status particularly cancer - diabetes and heart disease. Discussed other modalities of weight loss no . Potential candidate for bariatric surgery: No. Wishes to be evaluated by Dietary: No and was offered to be evaluated and instructed by touch up painter on weight loss diet. Active Medication ListMultivitamin DailyCpap As DirectedOmeprazole 20 MG (CAPSULE, DELAYED REL PELLETS - ORAL) One Daily Vaccination and Qomgmmuukefu2132-53 [facility] Oengdqr5297-23 Planter Tyuanxhz9681-40 Bilateral Inguinal Hernia Preventative Testing( ) 02/19/2024 Albumin 4.5 G/DL N( ) 02/19/2024 PSA 0.64 NG/ML N 02/18/2025( ) 11/10/2021 Cologuard 11/10/2024 Social HistoryDoes not current smoke. Stopped 2003. Smoke 1/2 pack daily for 10 yearsDrinks socially up to 12 pack per weekWorks as a kettle worker Family HistoryMother 72 years old and in good healthFather 74 lymphoma and CKDOne sister living and in good health TEST RESULT RANGE UNITSCBC (INCLUDES DIFF/PLT) Date: 02/19/2024WHITE BLOOD CELL COUNT 5.8 3.8-10.8 THOUSAND/ULHEMOGLOBIN 15.2 13.2-17.1 G/DLHEMATOCRIT 46.2 38.5-50.0 %PLATELET COUNT 246 140-400 THOUSAND/ULCOMPREHENSIVE METABOLIC PANEL Date: 02/19/2024SODIUM 138 135-146 MMOL/LPOTASSIUM 4.4 3.5-5.3 MMOL/LGLUCOSE 96 65-99 MG/DLUREA NITROGEN (BUN) 13 7-25 MG/DLCREATININE 0.92 0.60-1.29 MG/DLEGFR 102 > OR = 60 ML/MIN/1.03C5BCAXCOHTK, TOTAL 0.3 0.2-1.2 MG/DLALKALINE PHOSPHATASE 107 36-130 U/LAST 30 10-40 U/LALT 47 9-46 U/LLIPID PANEL, STANDARD Date: 02/19/2024HOLESTEROL, TOTAL 190 <200 MG/DLHDL CHOLESTEROL 56 > OR = 40 MG/DLTRIGLYCERIDES 140 <150 MG/DLLDL-CHOLESTEROL 109 MG/DL (CALC)MAGNESIUM Date: 02/19/2024MAGNESIUM 2.1 1.5-2.5 MG/DLPSA, TOTAL Date: 02/19/2024SA, TOTAL 0.64 < OR = 4.00 NG/MLT4, FREE Date: 02/19/2024T4, FREE 0.8 0.8-1.8 NG/DLTESTOSTERONE, FREE (DIALYSIS) AND TOTAL,MS Date: 02/19/2024TESTOSTERONE, TOTAL, MS 674 286-1449 NG/DLTESTOSTERONE, FREE 37 35.0-155.0 PG/MLTSH Date: 02/19/2024TSH 1.16 0.40-4.50 MIU/LVITAMIN B12 Date: 02/19/2024VITAMIN B12 [phone] PG/ML Mendoza Gipson MD [address] [facility], [facility] [address], [place], [address], [place] [facility] [employer] 08/07/2024 12:02:26
--- NOTE | 2025-01-17 09:28 | P.PNAN_ITS ---
Anes - Initial Pre Proc Eval Procedure: Operation Date: 01/17/25 10:30 Proposed Procedures p Excision Soft Tissue Mass Left Foot - Dariusz Santo Jr., DPM Date/Time: 01/17/25 09:28 Surgeon: Dariusz Santo Jr., DPM Pre Op Diagnosis: Soft Tissue Mass Left Foot Patient Data Age: 49 Gender: M Height: 1.7 m Weight: 115.1 kg Last Vital Signs Temp 36.8 C 01/17/25 09:11 Pulse 92 01/17/25 09:11 Resp 20 01/17/25 09:11 BP 126/91 H 01/17/25 09:11 Pulse Ox 97 01/17/25 09:11 O2 Del Method Room Air 01/17/25 09:11 Allergies Allergy/AdvReac Type Severity Reaction Status Date / Time No Known Allergies Allergy Verified 01/17/25 09:02 Home Medications ?Medication ?Instructions ?Recorded ?Confirmed ?Type antiarthritic combination no.2 900 900 mg PO DAILY 01/01/25 01/17/25 History mg tablet (glucosamine-chondroitin) multivitamin 1 tablet PO DAILY 01/01/25 01/17/25 History naproxen sodium 220 mg capsule 220 mg PO Q6-8H PRN pain 01/01/25 01/17/25 History (Aleve) omeprazole 20 mg capsule,delayed 20 mg PO DAILY 01/01/25 01/17/25 History release Patient hx anesthesia problems: none Family hx anesthesia problems: none Results Review: All pre-operative results and documents have been reviewed as part of the pre- operative evaluation. [facility] Past Medical History Medical History (Updated 01/17/25 @ 09:28 by Bebeto Coronel MD) STAN on CPAP Obesity Social History Social History Smoking packs per day: 0.5 Smoking cigarettes per day: 10.0 Years smoked: 10 Smoking pack-years: 5.00 Smoking status: Former smoker Tobacco type: cigarettes Smokeless tobacco user: chewing tobacco Additional smoking assessment comments: QUIT SMOKING 1999, USES CHEWING TOBACCO DAILY Alcohol intake: current Drinks per week: 12 Substance use: never Substance use type: does not use Living arrangements: alone Spiritual care concerns: No Anes - Eval Final PreProcedure Day of Procedure 01/17/25 09:28 Patient weight: obese Heart: regular rate and rhythm Lungs: clear to auscultation Airway: Mallampati scale class III Neurological: alert and oriented Last oral intake: >/= 8 hours ASA classification: III Emergent: no Anesthetic plan: proceed Anesthesia type and monitoring: general GIVS and standard monitoring Results Review: All pre-operative results and documents have been reviewed as part of the pre- operative evaluation. Informed Consent: The patient's anesthetic plan and its attendant risks and benefits were discussed with the patient/family/POA. Questions were solicited and answers provided to the satisfaction of the patient/family/POA.
[2025-01-17] MEDS: LACTATED RINGERS 1,000 ML 30 ML IV CONT (09:36)
[2025-01-17] MEDS: BUPivacaine HCL 0.5% PF 30 ML VIAL INFILTRATE (11:22)
[2025-01-17] MEDS: LIDOCAINE 2% LOCAL INJ 20 ML VIAL 10 ML INFILTRATE (11:22)
[2025-01-17 11:49] VITALS: BP 128/94; PULSE 76; RESP 18; O2SAT 99
--- NOTE | 2025-01-17 11:52 | W.PM.PROC2 ---
Procedure Note - Detailed Date of Procedure 01/17/25 Pre-op Diagnosis Soft Tissue Mass Left Foot Post-op Diagnosis Same Procedure Performed Excision of soft tissue mass left foot Surgeon Dariusz Santo Jr., DPM Anesthesia MAC and Local Indications Painful soft tissue mass left foot Findings encapsulated soft tissue mass left foot measures approximately 15mm in diameter Description of Procedure Under mild sedation, the patient was brought in to the operating room, placed on the operating table in the supine position.? A pneumatic tourniquet was placed about the patient's calf. Following IV sedation local anesthesia was obtained about the affected lower extremity utilizing 20 mL of a one to mix of 2% Lidocaine plain and 0.5% Marcaine plain to the tibial nerve.? The foot was then scrubbed, prepped, and draped in the usual aseptic manner.? An Esmarch bandage was then used to exsanguinate the patient's? foot and the pneumatic ankle tourniquet was then inflated. First, two converging semi-elliptical incisions were made about a 1.5cm epidermal and intradermal nodule along the medial left calcaneal region. The incisions were 4.5 cm in length, the entire lesion was excised in toto extending down to the subcutaneous fat layer. The entire ellipse of skin including the soft tissue mass was sent for gross and histopathology the distal aspect was split in order to identify the orientation.? The incision followed the 1:3 ratio in order to allow closure of the wound The wound site was flushed with sterile saline. No remaining abnormal tissue was noted post excision. The deep subcutaneous tissue was reapproximated with 3.0 Vicryl and the skin was reapproximated with 3.0 Prolene in horizontal and simple interrupted suture technique. Upon completion of the procedure, the plantar incision was dressed with adaptic, 4x4 gauze, kerlix and coban.? The pneumatic calf tourniquet was then deflated and a prompt hyperemic response was noted to all digits of the affected foot.? A surgical shoe was then applied. ? The patient did very well with the procedure and the anesthesia.? The patient was transferred to the recovery room with vital signs stable and vascular status intact to all toes of the affected foot.? Following a period of postoperative monitoring, the patient will be discharged home on the following written and oral postoperative instructions: 1. The patient should keep the dressing clean, dry, and intact.? Use a cast protector bag with showers. 2. The patient will be strictly protected weight bearing with a surgical shoe. 3. Patient should ice and elevate the affected foot when at rest. 4. The patient is to contact Dr. Santo for all postop care and if any problems arise. 5. Prescriptions were written for Percocet 5/325 dispensed 40 to be taken 1 p.o. q.4-6 hours as needed for severe pain.? Estimated Blood Loss 1 Drains No Packing No Pathology None sent Complications No immediate complications Condition Stable Disposition Same day
--- NOTE | 2025-01-17 11:55 | WPDANESPN ---
Anes - Prog Note Post-Op Date/Time: 01/17/25 11:55 Cardiovascular status: normal Respiratory status: normal Airway patency: baseline Mental status: baseline Post-Op hydration status: normal Vital Signs: Last Vital Signs Temp 36.8 C 01/17/25 09:11 Pulse 92 01/17/25 09:11 Resp 20 01/17/25 09:11 BP 126/91 H 01/17/25 09:11 Pulse Ox 97 01/17/25 09:11 O2 Del Method Room Air 01/17/25 09:11 Pain Score (VAS): 0/10 Patient Feedback: Patient satisfied with anesthetic care.
--- NOTE | 2025-01-17 12:02 | SUR.PHASEII ---
PT AWAKE AND ALERT. DENIES PAIN. ASKING TO GO HOME.
[2025-01-17 12:15] VITALS: BP 130/78; PULSE 80; RESP 20; O2SAT 97
== END 2025-01-17 12:25 | disposition home or self-care (01) ==
PROVIDERS: PCP Internal Medicine; Visit Provider Podiatrist Foot & Ankle Surgery
PROC: (CPT 28043; principal; 2025-01-17 10:30)
DX: D36.10 Benign neoplasm of peripheral nerves and autonomic nervous system, unspecified (principal)
CPT/HCPCS: 28043

== ENCOUNTER 2025-04-02 07:00 | Outpatient (CLI) | payer OTHER, SELFPAY ==
--- NOTE | ~2025-04-02 | US_ITS ---
Limited Abdominal Sonogram: Real-time sonographic imaging of the right upper quadrant was performed. Clinical History: Hepatic steatosis Findings: The liver appears echogenic, with no evidence of mass lesion or bile duct dilatation. Main portal vein demonstrates normal direction of flow. The gallbladder is well distended, and appears no rmal with no evidence of gallstone or wall thickening. The common bile duct measures 4 mm. The visua lized pancreas, aorta, and IVC are unremarkable. Impression: Diffuse fatty infiltration of the liver. Reviewed, dictated and finalized at location M. Impression: Diffuse fatty infiltration of the liver.
--- OUTSIDE RECORDS SUMMARY | 2025-04-02 07:05 | XMS_ITS | Data Portability ---
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 Plan of Treatment Reminders Order Date Submit Date Provider Last Modified By Organization Details Last Modified Time Details Appointments None recorded. Lab glycohemo globin, total, blood 025 025 [id number] [facility] (Lab), [address] [place], [address], 5 16:53:01 TSH, serum or plasma 025 025 [id number] [facility] (Lab), [address] [place], [address], 5 16:53:01 T4, free, serum 025 025 [facility] (Lab), [address] [place], [address], 5 16:53:02 lipid panel, serum 025 025 [facility] (Lab), [address] [place], [address], 5 07:31:38 CMP, serum or plasma 025 025 [facility] (Lab), [address] [place], [address], 5 07:31:42 PSA, serum or plasma [id number] [place] [address] (Lab), [address] [place], [address], 5 16:53:01 magnesium , serum or plasma [id number] [place] [address] (Lab), [address] [place], [address], 5 16:53:00 vitamin B12, serum [id number] (Lab), [address] [place], [address], 5 16:53:00 CBC w/ auto diff [id number] (Lab), [address] [place], [address], 5 16:53:01 FSH (follicle -stimulat ing hormone), serum 024 [facility] (Lab), [address] [place], [address], 4 08:31:23 lh (luteiniz ing hormone), serum 024 024 [facility] (Lab), [address] [place], [address], 4 08:31:24 prolactin , serum 024 024 [facility] (Lab), [address] [place], [address], 4 08:31:24 TSH, serum or plasma [id number] [place] [address] (Lab), [address] [place], [address], 4 17:32:23 T4, free, serum [id number] (Lab), [address] [place], [address], 4 17:32:23 lipid panel, serum [facility] (Lab), [address] [place], [address], 4 14:49:31 CMP, serum or plasma [facility] (Lab), [address] [place], [address], 4 14:49:33 magnesium , serum or plasma [id number] [place] [address] (Lab), [address] [place], [address], 4 17:32:23 vitamin B12, serum [id number] (Lab), [address] [place], [address], 4 17:32:23 CBC w/ auto diff [id number] [place] [address] (Lab), [address] [place], [address], 4 17:32:23 PSA, serum or plasma [id number] (Lab), [address] [place], [address], 4 17:32:23 testoster one, free + total, serum [id number] [facility] ([facility]), [address] [place], [address], 17:32:22 Referral None recorded. Procedures None recorded. Surgeries None recorded. Imaging None recorded. Medication Orders None recorded. Patient TargetsNo targets recorded. Patient Instructions Encounter Date Encounter Id Patient Instructions Last Modified By Organization Details Last Modified Time 06/12/2023 [id number] risk assessment* [email or web address] Not availabl e 06/12/2023 15:01:12 INFLUENZA VACCIN E TD/TDAP Recommended today, patient declined Ordered Pa tient will get at local pharmacy/health department PNEUMONIA VACCINE Ordered Recommended today, patient declined Patient will get at local pharmacy/health department Recommen ded at age 64 SHINGLES Not indicated PSA [...] exercise/physical activity ALCOHOL USE No alcohol use Occasional/Soci al Use TOBACCO USE non smoker LUNG CANCER SCREENING Non Smoker-not indicated SEXUALLY ACTIVE HEPATITIS C SCREENING Not indicated GLUCOSE SCREENING LIPID SCREENING [email or web address] Not available 06/12/2023 14:50:01 Adult health examination [...] current Rx and follow-up in six months. [email or web address] Not available 06/12/2023 15:00:58 02/07/2024 [id number] Obstructive slee p apnea, GERD, testicular hypofunction [...] recognize, using context, where substitutions have occurred. [email or web address] Not available 02/07/2024 11:55:10 08/07/2024 [id number] risk assessment* [email or web address] Not availabl e 08/07/2024 12:02:22 INFLUENZA VACCIN E TD/TDAP Recommended today, patient declined Ordered Luis luclaudia will get at local pharmacy/health department PNEUMONIA VACCINE Ordered Recommended today, patient declined Patient will get at local pharmacy/health department Recommen ded at age 64 SHINGLES Ordered Recommended today, patient declined Patient will get at [...] exercise/physical activity ALCOHOL USE No alcohol use Occasional/Soci al Use TOBACCO USE non smoker LUNG CANCER SCREENING Non Smoker-not indicated SEXUALLY ACTIVE HEPATITIS C SCREENING Not indicated GLUCOSE SCREENING LIPID SCREENING [email or web address] Not available 08/07/2024 11:43:06 Wellness evaluat ion risk assessment stable. Up-to-date on immunizations as [...] recognize, using context, where substitutions have occurred. [email or web address] Not available 08/07/2024 12:02:10 02/05/2025 [id number] Follow-up GERD, testicular hypofunction, obstructive sleep apnea and obesity class three. All clinically stable. Check blood work consisting of CBC, CMP, lipid, thyroid and PSA. He is due for Cologuard. 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 Follow-up in six months Additional Orders - Directives - Recommendations 1. Cologuard 2. We are trying to get him set up for a MRI of the pituitary with and without contrast for possible hypopituitarism. Please check on the status of the Follow Up: 6 Months Approximate Date: 08/04/2025 Portions of record are template driven. When necessary additional context will be provided. Additionally some portions have been created with voice recognition software. Occasional wrong-word or s ound-a-like substitutions may have occurred due to the inherent limitations of voice recognition software. Read the chart carefully and recognize, using context, where substitutions may have occurred. Created: Mendoza Gipson M.D. 02.05.2025 09:42 AM [email or web address] Not available 02/05/2025 10:42:31 Reason for Referral None Reported. Results Created Date Observation Date Name Description Value Unit Range Abnormal Flag Note LastModifiedBy Organization Detail LastModifiedTime 12/08/19 23 12/11/2022 TESTO STERO NE, FREE [...] e refer to https ://ed ucati on.qu stiven eHarmony. com/f aq/FA T910 (This link is being provi ded for infor mary nal/e ducat ional purpo ses only. ) (Note ) This test was devel oped and its kassi tical perfo rmanc e rashi cteri stics have been deter mined by [facility]. It has not been clear ed or appro mayi by the FDA. This assay has been valid ated pursu ant to the CLIA regul ation s and is used for clini sofiya purpo ses. Not Available [facility] [address] , [place], [address], 12/11/2022 15:36:54 12/08/19 23 12/11/2022 TESTO STERO NE, FREE (DIAL YSIS) AND TOTAL ,MS testosterone , free 73 pg/mL 35.0-1 55.0 (Note ) This test was devel oped and its kassi tical perfo rmanc e rashi cteri stics have been deter mined by [facility]. It has not been clear ed or appro mayi by the FDA. This assay has been valid ated pursu ant to the CLIA regul ation s and is used for clini sofiya purpo ses. MDF med fusio n [address] [facility] [address] [place] [address] [phone] Alexi winter MD Not Available [facility] [address] [place], [address], 12/11/2022 15:36:54 12/08/19 23 12/11/2022 PSA, TOTAL [...] not be inter prete d as absol tolowa dee-ni' evide nce of the prese nce or absen ce of disea se. Not Available [facility] [address] [place], [address], 12/11/2022 15:36:53 12/08/19 23 12/11/2022 VITAM IN B12 vitamin B12 683 pg/mL 200-11 00 normal Not Available [facility] [place], [address], 12/11/2022 15:36:53 12/08/19 23 12/11/2022 CBC (INCL UDES DIFF/ PLT) white blood cell count 5.2 thous and/u L 3.8-10 .8 normal Not Available [address], [address], 12/11/2022 15:36:52 12/08/19 23 12/11/2022 CBC (INCL UDES DIFF/ PLT) red blood cell count 5.16 francisco on/uL 4.20-5 .80 normal Not Available [address], [address], 12/11/2022 15:36:52 12/08/19 23 12/11/2022 CBC (INCL UDES DIFF/ PLT) hemoglobin 15.4 g/dL 13.2-1 7.1 normal Not Available [address], [address], 12/11/2022 15:36:52 12/08/19 23 12/11/2022 CBC (INCL UDES DIFF/ PLT) hematocrit 46.8 % 38.5-5 0.0 normal Not Available [address], [address], 12/11/2022 15:36:52 12/08/19 23 12/11/2022 CBC (INCL UDES DIFF/ PLT) MCV 90.7 fL 80.0-1 00.0 normal Not Available [address], [address], 12/11/2022 15:36:52 12/08/19 23 12/11/2022 CBC (INCL UDES DIFF/ PLT) MCH 29.8 pg 27.0-3 3.0 normal Not Available [facility] [address], [address], 12/11/2022 15:36:52 12/08/19 23 12/11/2022 CBC (INCL UDES DIFF/ PLT) MCHC 32.9 g/dL 32.0-3 6.0 normal Not Available [address], [address], 12/11/2022 15:36:52 12/08/19 23 12/11/2022 CBC (INCL UDES DIFF/ PLT) RDW 13.3 % 11.0-1 5.0 normal Not Available [address], [address], 12/11/2022 15:36:52 12/08/19 23 12/11/2022 CBC (INCL UDES DIFF/ PLT) platelet count 290 thous and/u L 140-40 0 normal Not Available [address], [address], 12/11/2022 15:36:52 12/08/19 23 12/11/2022 CBC (INCL UDES DIFF/ PLT) MPV 10.9 fL 7.5-12 .5 normal Not Available [address], [address], 12/11/2022 15:36:52 12/08/19 23 12/11/2022 CBC (INCL UDES DIFF/ PLT) absolute neutrophils 2538 cells /uL 1500-7 800 normal Not Available [address], [address], 12/11/2022 15:36:52 12/08/19 23 12/11/2022 CBC (INCL UDES DIFF/ PLT) absolute lymphocytes 1997 cells /uL 850-39 00 normal Not Available [address], [address], 12/11/2022 15:36:52 12/08/19 23 12/11/2022 CBC (INCL UDES DIFF/ PLT) absolute monocytes 567 cells /uL 200-95 0 normal Not Available [facility] [address] [place], [address], 12/11/2022 15:36:52 12/08/19 23 12/11/2022 CBC (INCL UDES DIFF/ PLT) absolute eosinophils 88 cells /uL 15-500 normal Not Available [facility] [address], [address], 12/11/2022 15:36:52 12/08/19 23 12/11/2022 CBC (INCL UDES DIFF/ PLT) absolute basophils 10 cells /uL 0-200 normal Not Available [facility] [address], [address], 12/11/2022 15:36:52 12/08/19 23 12/11/2022 CBC (INCL UDES DIFF/ PLT) neutrophils 48.8 % normal Not Available [facility] [address], [address], 12/11/2022 15:36:52 12/08/19 23 12/11/2022 CBC (INCL UDES DIFF/ PLT) lymphocytes 38.4 % normal Not Available [facility] [address], [address], 12/11/2022 15:36:52 12/08/19 23 12/11/2022 CBC (INCL UDES DIFF/ PLT) monocytes 10.9 % normal Not Available [facility] [address], [address], 12/11/2022 15:36:52 12/08/19 23 12/11/2022 CBC (INCL UDES DIFF/ PLT) eosinophils 1.7 % normal Not Available [facility] [address], [address], 12/11/2022 15:36:52 12/08/19 23 12/11/2022 CBC (INCL UDES DIFF/ PLT) basophils 0.2 % normal Not Available [facility] [address], [place], [address], 12/11/2022 15:36:52 12/08/19 23 12/11/2022 COMPR EHENS [place] METAB OLIC PANEL glucose 98 mg/dL 65-99 normal Fasti ng refer ence inter rufina Not Available [facility] [address] [address] [place], [address], 12/11/2022 15:36:52 12/08/19 23 12/11/2022 COMPR EHENS [place] METAB OLIC PANEL urea nitrogen (BUN) 19 mg/dL 7-25 normal Not Available [facility] [address], [address], 12/11/2022 15:36:52 12/08/19 23 12/11/2022 COMPR EHENS [place] METAB OLIC PANEL creatinine 1.01 mg/dL 0.60-1 .29 normal Not Available [address], [address], 12/11/2022 15:36:52 12/08/19 23 12/11/2022 COMPR EHENS [place] METAB OLIC PANEL eGFR 92 mL/mi n/1.7 3m2 > or = 60 normal The eGFR is based on the CKD-E PI 2020 equat ion. To calcu late the new eGFR from a previ ous Creat inine or Cysta tin C resul t, go to https ://sujey alvarado/melvin mathews s/ kdoqi /gfr% 5Fcal culat or Not Available [address] [address] [place], [address], 12/11/2022 15:36:52 12/08/19 23 12/11/2022 COMPR EHENS [place] METAB OLIC PANEL BUN/creatini ne ratio not applic able (calc ) 6-22 Not Available [address] [address] [place], [address], 12/11/2022 15:36:52 12/08/19 23 12/11/2022 COMPR EHENS [place] METAB OLIC PANEL sodium 139 mmol/ L 135-14 6 normal Not Available [address], [address], 12/11/2022 15:36:52 12/08/19 23 12/11/2022 COMPR EHENS [place] METAB OLIC PANEL potassium 4.7 mmol/ L 3.5-5. 3 normal Not Available [address], [address], 12/11/2022 15:36:52 12/08/19 23 12/11/2022 COMPR EHENS [place] METAB OLIC PANEL chloride 104 mmol/ L 98-110 normal Not Available [address], [address], 12/11/2022 15:36:52 12/08/19 23 12/11/2022 COMPR EHENS [place] METAB OLIC PANEL carbon dioxide 25 mmol/ L 20-32 normal Not Available [address], [address], 12/11/2022 15:36:52 12/08/19 23 12/11/2022 COMPR EHENS [place] METAB OLIC PANEL calcium 10.2 mg/dL 8.6-10 .3 normal Not Available [address], [address], 12/11/2022 15:36:52 12/08/19 23 12/11/2022 COMPR EHENS [place] METAB OLIC PANEL protein, total 7.5 g/dL 6.1-8. 1 normal Not Available [address], [address], 12/11/2022 15:36:52 12/08/19 23 12/11/2022 COMPR EHENS [place] METAB OLIC PANEL albumin 4.6 g/dL 3.6-5. 1 normal Not Available [address] [place], [address], 12/11/2022 15:36:52 12/08/19 23 12/11/2022 COMPR EHENS [place] METAB OLIC PANEL globulin 2.9 g/dL_ (calc ) 1.9-3. 7 normal Not Available [address], [address], 12/11/2022 15:36:52 12/08/19 23 12/11/2022 COMPR EHENS [place] METAB OLIC PANEL albumin/glob ulin ratio 1.6 (calc ) 1.0-2. 5 normal Not Available [address], [address], 12/11/2022 15:36:52 12/08/19 23 12/11/2022 COMPR EHENS [place] METAB OLIC PANEL bilirubin, total 0.5 mg/dL 0.2-1. 2 normal Not Available [address], [address], 12/11/2022 15:36:52 12/08/19 23 12/11/2022 COMPR EHENS [place] METAB OLIC PANEL alkaline phosphatase 95 U/L 36-130 normal Not Available [address], [address], 12/11/2022 15:36:52 12/08/19 23 12/11/2022 COMPR EHENS [place] METAB OLIC PANEL AST 34 U/L 10-40 normal Not Available [address], [address], 12/11/2022 15:36:52 12/08/19 23 12/11/2022 COMPR EHENS [place] METAB OLIC PANEL ALT 55 U/L 9-46 high Not Available [address], [address], 12/11/2022 15:36:52 12/08/19 23 12/11/2022 MAGNE SIUM magnesium 2.2 mg/dL 1.5-2. 5 normal Not Available [address] [address] [place], [address], 12/11/2022 15:36:51 12/08/19 23 12/11/2022 LIPID PANEL , STAND JEANNETTE cholesterol, total 204 mg/dL <200 high Not Available [facility] [address], [address], 12/11/2022 15:36:51 12/08/19 23 12/11/2022 LIPID PANEL , STAND JEANNETTE HDL cholesterol 52 mg/dL > or = 40 normal Not Available [address] [place], [address], 12/11/2022 15:36:51 12/08/19 23 12/11/2022 LIPID PANEL , STAND JEANNETTE triglyceride s 248 mg/dL <150 high If a non-f astin g speci men was colle cted, consi pearl repea t trigl yceri de testi ng on a fasti ng speci men if clini laci indic ated. Jareth díaz et al. J. of Clin. Lipid ol. 2015; 9:129 -169. Not Available [address], [address], 12/11/2022 15:36:51 12/08/19 23 12/11/2022 LIPID PANEL [...] lated using the Virgie n-Hop kins calcu latvikki n, which is a valid ated novel metho d provi ding wally r accur acy than the Fried nelly equat ion in the estim ation of LDL-C . Virgie farooq SS et al. IDANIA. 2013; 310(1 9): 2061- 2068 (http ://ed ucati on.Speech Kingdom Stiven eHarmony. PoolCubes/f aq/FA Q164) Not Available [address] [address] [place], [address], 12/11/2022 15:36:51 12/08/19 23 12/11/2022 LIPID PANEL , STAND JEANNETTE chol/HDLC ratio 3.9 (calc ) <5.0 normal Not Available [address] [address] [place], [address], 12/11/2022 15:36:51 12/08/1912/11/2022 LIPID PANEL , STAND JEANNETTE non HDL cholesterol 152 mg/dL _(sofiya c) <130 high For patie nts with diabe viola plus 1 major ASCVD risk facto r, treat ing to a non-H DL-C goal of <100 mg/dL (LDL- C of <70 mg/dL ) is consi dered a gaylaa dave c optio n. Not Available [address] [address] [place], [address], 12/11/2022 15:36:51 02/19/20 24 02/22/2024 LIPID PANEL , STAND JEANNETTE cholesterol, total 190 mg/dL <200 normal Not Available [address] [address] [place], [address], 02/22/2024 14:49:30 02/19/20 24 02/22/2024 LIPID PANEL , STAND JAENNETTE HDL cholesterol 56 mg/dL > or = 40 normal Not Available [address] [address] [place], [address], 02/22/2024 14:49:30 02/19/20 24 02/22/2024 LIPID PANEL , STAND JEANNETTE triglyceride s 140 mg/dL <150 normal Not Available [address] [address] [place], [address], 02/22/2024 14:49:30 02/19/20 24 02/22/2024 LIPID PANEL [...] 9): 2061- 2068 (http ://ed ucati on.Qu nikitaHybrid Electric Vehicle Technologies. PoolCubes/f aq/FA Q164) Not Available [address], [address], 02/22/2024 14:49:30 02/19/20 24 02/22/2024 LIPID PANEL , STAND JEANNETTE chol/HDLC ratio 3.4 (calc ) <5.0 normal Not Available [address], [address], 02/22/2024 14:49:30 02/19/20 24 02/22/2024 LIPID PANEL , STAND JEANNETTE non HDL cholesterol 134 mg/dL _(sofiya c) <130 high For patie nts with diabe viola plus 1 major ASCVD risk facto r, treat ing to a non-H DL-C goal of <100 mg/dL (LDL- C of <70 mg/dL ) is consi alhajid a therlissette pezoë c optio n. Not Available [address], [address], 02/22/2024 14:49:30 02/19/20 24 02/22/2024 MAGNE SIUM magnesium 2.1 mg/dL 1.5-2. 5 normal Not Available [employer] [address] [place], [address], 02/22/2024 14:49:32 02/19/20 24 02/22/2024 COMPR EHENS [place] METAB OLIC PANEL glucose 96 mg/dL 65-99 normal Fasti ng refer ence inter rufina Not Available [address], [address], 02/22/2024 14:49:33 02/19/20 24 02/22/2024 COMPR EHENS [place] METAB OLIC PANEL urea nitrogen (BUN) 13 mg/dL 7-25 normal Not Available [address], [address], 02/22/2024 14:49:33 02/19/20 24 02/22/2024 COMPR EHENS [place] METAB OLIC PANEL creatinine 0.92 mg/dL 0.60-1 .29 normal Not Available [address], [address], 02/22/2024 14:49:33 02/19/20 24 02/22/2024 COMPR EHENS [place] METAB OLIC PANEL eGFR 102 mL/mi n/1.7 3m2 > or = 60 normal Not Available [address], [address], 02/22/2024 14:49:33 02/19/20 24 02/22/2024 COMPR EHENS [place] METAB OLIC PANEL BUN/creatini ne ratio SEE NOTE: (calc ) 6-22 Not Repor cara: BUN and Creat inine are withi n refer ence range . Not Available [address], [address], 02/22/2024 14:49:33 02/19/20 24 02/22/2024 COMPR EHENS [place] METAB OLIC PANEL sodium 138 mmol/ L 135-14 6 normal Not Available [address], [address], 02/22/2024 14:49:33 02/19/20 24 02/22/2024 COMPR EHENS [place] METAB OLIC PANEL potassium 4.4 mmol/ L 3.5-5. 3 normal Not Available [address], [address], 02/22/2024 14:49:33 02/19/20 24 02/22/2024 COMPR EHENS [place] METAB OLIC PANEL chloride 105 mmol/ L 98-110 normal Not Available [address], [address], 02/22/2024 14:49:33 02/19/20 24 02/22/2024 COMPR EHENS [place] METAB OLIC PANEL carbon dioxide 22 mmol/ L 20-32 normal Not Available [address], [address], 02/22/2024 14:49:33 02/19/20 24 02/22/2024 COMPR EHENS [place] METAB OLIC PANEL calcium 9.9 mg/dL 8.6-10 .3 normal Not Available [address], [address], 02/22/2024 14:49:33 02/19/20 24 02/22/2024 COMPR EHENS [place] METAB OLIC PANEL protein, total 7.8 g/dL 6.1-8. 1 normal Not Available [address], [address], 02/22/2024 14:49:33 02/19/20 24 02/22/2024 COMPR EHENS [place] METAB OLIC PANEL albumin 4.5 g/dL 3.6-5. 1 normal Not Available [address], [address], 02/22/2024 14:49:33 02/19/20 24 02/22/2024 COMPR EHENS [place] METAB OLIC PANEL globulin 3.3 g/dL_ (calc ) 1.9-3. 7 normal Not Available [address], [address], 02/22/2024 14:49:33 02/19/20 24 02/22/2024 COMPR EHENS [place] METAB OLIC PANEL albumin/glob ulin ratio 1.4 (calc ) 1.0-2. 5 normal Not Available [address], [address], 02/22/2024 14:49:33 02/19/20 24 02/22/2024 COMPR EHENS [place] METAB OLIC PANEL bilirubin, total 0.3 mg/dL 0.2-1. 2 normal Not Available [address], [address], 02/22/2024 14:49:33 02/19/20 24 02/22/2024 COMPR EHENS [place] METAB OLIC PANEL alkaline phosphatase 107 U/L 36-130 normal Not Available [address], [address], 02/22/2024 14:49:33 02/19/20 24 02/22/2024 COMPR EHENS [place] METAB OLIC PANEL AST 30 U/L 10-40 normal Not Available [address], [address], 02/22/2024 14:49:33 02/19/20 24 02/22/2024 COMPR EHENS [place] METAB OLIC PANEL ALT 47 U/L 9-46 high Not Available [address], [address], 02/22/2024 14:49:33 02/19/20 24 02/22/2024 CBC (INCL UDES DIFF/ PLT) white blood cell count 5.8 thous and/u L 3.8-10 .8 normal Not Available [address], [address], 02/22/2024 14:49:34 02/19/20 24 02/22/2024 CBC (INCL UDES DIFF/ PLT) red blood cell count 4.97 francisco on/uL 4.20-5 .80 normal Not Available [address], [address], 02/22/2024 14:49:34 02/19/20 24 02/22/2024 CBC (INCL UDES DIFF/ PLT) hemoglobin 15.2 g/dL 13.2-1 7.1 normal Not Available [address], [address], 02/22/2024 14:49:34 02/19/20 24 02/22/2024 CBC (INCL UDES DIFF/ PLT) hematocrit 46.2 % 38.5-5 0.0 normal Not Available [address], [address], 02/22/2024 14:49:34 02/19/20 24 02/22/2024 CBC (INCL UDES DIFF/ PLT) MCV 93.0 fL 80.0-1 00.0 normal Not Available [address], [address], 02/22/2024 14:49:34 02/19/20 24 02/22/2024 CBC (INCL UDES DIFF/ PLT) MCH 30.6 pg 27.0-3 3.0 normal Not Available [address], [address], 02/22/2024 14:49:34 02/19/20 24 02/22/2024 CBC (INCL UDES DIFF/ PLT) MCHC 32.9 g/dL 32.0-3 6.0 normal Not Available [address], [address], 02/22/2024 14:49:34 02/19/20 24 02/22/2024 CBC (INCL UDES DIFF/ PLT) RDW 14.2 % 11.0-1 5.0 normal Not Available [address], [address], 02/22/2024 14:49:34 02/19/20 24 02/22/2024 CBC (INCL UDES DIFF/ PLT) platelet count 246 thous and/u L 140-40 0 normal Not Available [address], [address], 02/22/2024 14:49:34 02/19/20 24 02/22/2024 CBC (INCL UDES DIFF/ PLT) MPV 11.0 fL 7.5-12 .5 normal Not Available [address], [address], 02/22/2024 14:49:34 02/19/20 24 02/22/2024 CBC (INCL UDES DIFF/ PLT) absolute neutrophils 3271 cells /uL 1500-7 800 normal Not Available [address], [address], 02/22/2024 14:49:34 02/19/20 24 02/22/2024 CBC (INCL UDES DIFF/ PLT) absolute lymphocytes 1827 cells /uL 850-39 00 normal Not Available [address], [address], 02/22/2024 14:49:34 02/19/20 24 02/22/2024 CBC (INCL UDES DIFF/ PLT) absolute monocytes 539 cells /uL 200-95 0 normal Not Available [address], [address], 02/22/2024 14:49:34 02/19/20 24 02/22/2024 CBC (INCL UDES DIFF/ PLT) absolute eosinophils 151 cells /uL 15-500 normal Not Available [address], [address], 02/22/2024 14:49:34 02/19/20 24 02/22/2024 CBC (INCL UDES DIFF/ PLT) absolute basophils 12 cells /uL 0-200 normal Not Available [address], [address], 02/22/2024 14:49:34 02/19/20 24 02/22/2024 CBC (INCL UDES DIFF/ PLT) neutrophils 56.4 % normal Not Available [address], [address], 02/22/2024 14:49:34 02/19/20 24 02/22/2024 CBC (INCL UDES DIFF/ PLT) lymphocytes 31.5 % normal Not Available [facility] [address], [address], 02/22/2024 14:49:34 02/19/20 24 02/22/2024 CBC (INCL UDES DIFF/ PLT) monocytes 9.3 % normal Not Available [facility] [address], [address], 02/22/2024 14:49:34 02/19/20 24 02/22/2024 CBC (INCL UDES DIFF/ PLT) eosinophils 2.6 % normal Not Available [facility] [address], [address], 02/22/2024 14:49:34 02/19/20 24 02/22/2024 CBC (INCL UDES DIFF/ PLT) basophils 0.2 % normal Not Available [facility] [address], [address], 02/22/2024 14:49:34 02/19/20 24 02/22/2024 T4, FREE T4, free 0.8 NG/dL 0.8-1. 8 normal Not Available [facility] [address], [address], 02/22/2024 14:49:35 02/19/20 24 02/22/2024 VITAM IN B12 vitamin B12 451 pg/mL 200-11 00 normal Not Available [address], [address], 02/22/2024 14:49:36 02/19/20 24 02/22/2024 PSA, TOTAL [...] This test was perfo rmed using the [employer] chemi lumin escen t metho d. Value s obtai lynn from diffe rent assay metho ds canno t be used inter clark eably . PSA level s, regar dless of value , shoul d not be inter prete d as absol tolowa dee-ni' evide nce of the prese nce or absen ce of disea se. Not Available [address], [address], 02/22/2024 14:49:37 02/19/20 24 02/22/2024 TSH TSH 1.16 mIU/L 0.40-4 .50 normal Not Available [facility] [address] [place], [address], 02/22/2024 14:49:38 02/19/20 24 02/22/2024 TESTO STERO [...] e refer to https ://ed ucati on.qu nikitaINCIDE. com/f aq/FA Q165 (This link is being provi ded for infor mary nal/e ducat ional purpo ses only. ) (Note ) This test was devel oped and its kassi tical perfo rmanc e rashi cteri stics have been deter mined by [facility]. It has not been clear ed or appro mayi by the FDA. This assay has been valid ated pursu ant to the CLIA regul ation s and is used for clini sofiya purpo ses. Not Available [address] [address] [place], [address], 02/22/2024 14:49:39 02/19/20 24 02/22/2024 TESTO STERO NE, FREE (DIAL YSIS) AND TOTAL ,MS testosterone , free 37 pg/mL 35.0-1 55.0 (Note ) This test was devel oped and its kassi tical perfo rmanc e rashi cteri stics have been deter mined by [facility]. It has not been clear ed or appro mayi by the FDA. This assay has been valid ated pursu ant to the CLIA regul ation s and is used for clini sofiya purpo ses. MDF med fusio n [address] [facility] [address] [facility] [address] [phone] [facility] zoey Gupta MD, PhD Not Available [facility] [address] [place], [address], 02/22/2024 14:49:39 08/07/2008/08/2024 FSH FSH 5.1 mIU/m L 1.4-12 .8 normal Not Available [facility] [address] [place], [address], 08/08/2024 08:31:23 08/07/20 24 08/08/2024 LH LH 2.8 mIU/m L 1.5-9. 3 normal Not Available [facility] [address] [place], [address], 08/08/2024 08:31:24 08/07/20 24 08/08/2024 PROLA CTIN prolactin 5.4 NG/mL 2.0-18 .0 normal Not Available [facility] [address] [place], [address], 08/08/2024 08:31:24 11/18/20 24 11/25/2024 BIOAV AILAB LE + FREE TESTO ST % free testosterone (dialysi 2.0 % This test was devel oped and its perfo rmanc e rashi cteri stics deter mined by [facility]. It has not been clear ed or appro mayi by the Food and Drug Admin istra tion. Refer ence Range : Adult Males : 1.5 - 3.2 Not Available [facility] (Lab) [address] [place], [address], 11/25/2024 16:08:51 11/18/20 24 11/25/2024 BIOAV AILAB LE + FREE TESTO ST bioavailable + free testost 126 NG/dL Refer ence Range : Males (50 - 69y): 95 - 285 Perfo rmed at: [facility] [employer] [address] [place], [place] [id number] Lab Direc tor: Stas emery MD, Phone : [phone] Not Available [facility] (Lab) [address] [place], [address], 11/25/2024 16:08:51 11/18/20 24 11/25/2024 BIOAV AILAB LE + FREE TESTO ST bioavailable testosterone , % 38.8 % Not Available [facility] (Lab) [address] [place], [address], 11/25/2024 16:08:51 11/18/20 24 11/25/2024 BIOAV AILAB LE + FREE TESTO ST free testosterone ,serum 65 pg/mL Refer ence Range : Adult Males : 52 - 280 Not Available [facility] (Lab) [address] [place], [address], 11/25/2024 16:08:51 11/18/20 24 11/25/2024 BIOAV AILAB LE + FREE TESTO ST testosterone ,total 324 NG/dL This test was devel oped and its perfo rmanc e rashi cteri stics deter mined by [facility]. It has not been clear ed or appro mayi by the Food and Drug Admin istra tion. Refer ence Range : Adult Males >18 years 264 - 916 This [facility] LC/MS -MS metho d is curre ntly certi fied by the CDC Hormo ne Stand ardiz ation Progr am (HoST ). Adult male refer ence inter rufina is based on a popul ation of healt hy nonob mary males (BMI <3 0) betwe en 19 and 39 years old. Woody díaz et.al . JCEM 2017, 102;1 161-1 173 PMID: 64757 103. Not Available [facility] (Lab) [address] [place], [address], 11/25/2024 16:08:51 02/21/20 25 02/20/2025 COLOG UARD cologuard result reportable NEGATI VE negati ve normal NEGAT [place] TEST RESUL T. A negat austin Colog uard resul t indic ates a low likel ihood that a color ectal cance r (CRC) or advan jose adeno ma (nereida omato us polyp s with more advan jose pre-m align ant featu res) is prese nt. The chanc e that a perso n with a negat austin Colog uard test has a color ectal cance r is less than 1 in 1500 (nega tive predi ctive value >99.9 %) or has an advan jose adeno ma is less than 5.3% (nega tive predi ctive value 94.7% ). These data are based on a prosp ectiv e cross -sect ional study of 10,00 0 indiv idual s at [place] ge risk for color ectal cance r who were scree lynn with both Colog uard and colon oscop y. (Brenda Mandel al, N Engl J Med 2014; 370(1 4):12 86-12 97) The kateryna l value (refe rence range ) for this assay is negat austin. COLOG UARD RE-SC REENI NG RECOM MENDA TION: Perio dic color ectal cance r scree lucas is an impor tant part of preve ntive healt hcare for asymp tomat ic indiv idual s at [place] ge risk for color ectal cance r. Follo wing a negat austin Colog uard resul t, the Ameri can Cance r Socie ty and U.S. Multi -Soci ety Task Force scree lucas guide lines recom mend a Colog uard re-sc reeni ng inter rufina of 3 years . Refer ences : Ameri can Cance r Socie ty Guide line for Color ectal Cance r Scree lucas: https ://ww w.can cer.o rg/ca ncer/ colon -rect al-ca ncer/ detec tion- diagn osis- stagi ng/ac s-rec ommen datio ns.ht ml.; Thom MENDOZA, Lul escoto CR, Allan PlummerK, Color ectal Cance r Scree lucas: Recom menda tions for Physi cians and Patie nts from the U.S. Multi -Soci ety Task Force on Color ectal Cance r Scree lucas , Am Kavitha fritzntgrey rolog y 2017; 112:1 016-1 030. TEST DESCR IPTIO N: Lyon site algor ithmi c kassi sis of stool DNA-b iotheresa kers with hemog lobin immun oassa y. Quant itati ve value s of indiv idual bioma rkers are not repor table and are not assoc iated with indiv idual bioma rker resul t refer ence range s. Colog uard is inten ded for color ectal cance r scree lucas of adult s of eithe r sex, 45 years or older , who are at [facility] for color ectal cance r (CRC) . Colog uard has been appro mayi for use by the U.S. FDA. The perfo rmanc e of Colog uard was estab lishe d in a cross secti onal study of [facility] adult s aged 50-84 . Colog uard perfo rmanc e in patie nts ages 45 to 49 years was estim ated by omid-samantha tang kassi sis of near- age group s. Colon oscop ies perfo rmed for a posit austin resul t may find as the most clini laci signi fican t lesio n: color ectal cance r [4.0% ], advan jose adeno ma (incl uding sessi le [place]a polyp s great er than or equal to 1cm diame ter) [20%] or non- advan jose adeno ma [31%] ; or no color ectal neopl jazmine [45%] . These estim ates are deriv ed from a prosp ectiv e cross -sect ional scree lucas study of 0 indiv idual s at [facility] risk for color ectal cance r who were scree lynn with both Colog uard and colon oscop y. (Brenda Bolaños et al, N Engl J Med 2014; 370(1 4):12 86-12 97.) Colog uard may produ ce a false negat austin or false posit austin resul t (no color ectal cance r or preca ncero us polyp prese nt at colon oscop y follo w up). A negat austin Colog uard test resul t does not guara ntee the absen ce of CRC or advan jose adeno ma (pre- cance r). The curre nt Colog uard scree lucas inter rufina is every 3 years . (Amer ican Cance r Socie ty and U.S. Multi -Soci ety Task Force ). Colog uard perfo rmanc e data in a 0 patie nt pivot al study using colon oscop y as the refer ence metho d can be acces sed at the follo wing locat ion: www.e xactl abs.c om/re sults . Addit ional descr iptio n of the Colog uard test proce ss, warni ngs and preca ution s can be found at www.c gwyn chavira.c om. Not Available [facility] (Cologuard Orders Only) [address], [place], [address], 02/27/2025 21:35:05 03/07/2003/08/2025 LIPID PANEL , STAND JEANNETTE cholesterol, total 184 mg/dL <200 normal Not Available [address] [address] [place], [address], 03/08/2025 07:31:38 03/07/20 25 03/08/2025 LIPID PANEL , STAND JEANNETTE HDL cholesterol 53 mg/dL > or = 40 normal Not Available [address] [address] [place], [address], 03/08/2025 07:31:38 03/07/2003/08/2025 LIPID PANEL , STAND JEANNETTE triglyceride s 218 mg/dL <150 high If a non-f astin g speci men was colle cted, consi pearl repea t trigl yceri de testi ng on a fasti ng speci men if clini laci indic ated. Jareth díaz et al. J. of Clin. Lipid ol. 2015; 9:129 -169. Not Available [address] [address] [place], [address], 03/08/2025 07:31:38 03/07/2003/08/2025 LIPID PANEL , STAND JEANNETTE LDL-choleste rol 97 mg/dL _(sofiya c) normal Refer ence range : <100 Ana able range <100 mg/dL for prima ry preve ntion ; <70 mg/dL for patie nts with CHD or diabe tic patie nts with > or = 2 CHD risk facto rs. LDL-C is now calcu lated using the [facility] n-Hop kins calcu latvikki n, which is a valid ated novel metho d provi ding wally r accur acy than the Fried nelly equat ion in the estim ation of LDL-C . Virgie n SS et al. IDANIA. 2013; 310(1 9): 2061- 2068 (http ://ed ucati on.Qu Stiven villaMyrio Solution. com/f aq/FA Q164) Not Available [facility] [address], [place], [address], 03/08/2025 07:31:38 03/07/20 25 03/08/2025 LIPID PANEL , STAND JEANNETTE chol/HDLC ratio 3.5 (calc ) <5.0 normal Not Available [facility] [address] [address] [address], [place], [address], 03/08/2025 07:31:38 03/07/20 25 03/08/2025 LIPID PANEL , STAND JEANNETTE non HDL cholesterol 131 mg/dL _(sofiya c) <130 high For patie nts with diabe viola plus 1 major ASCVD risk facto r, treat ing to a non-H DL-C goal of <100 mg/dL (LDL- C of <70 mg/dL ) is consi dered a gaylaa peuti c optio n. Not Available [facility] [address] [address] [address], [place], [address], 03/08/2025 07:31:38 03/07/20 25 03/08/2025 MAGNE SIUM magnesium 2.1 mg/dL 1.5-2. 5 normal Not Available [facility] [address] [address] [address], [place], [address], 03/08/2025 07:31:40 03/07/20 25 03/08/2025 COMPR EHENS [place] METAB OLIC PANEL glucose 104 mg/dL 65-99 high Fasti ng refer ence inter rufina For someo ne witho ut known diabe viola, a gluco se value betwe en 100 and 125 mg/dL is consi stent with predi abete s and shoul d be confi rmed with a follo w-up test. Not Available [address], [address], 03/08/2025 07:31:42 03/07/20 25 03/08/2025 COMPR EHENS [place] METAB OLIC PANEL urea nitrogen (BUN) 14 mg/dL 7-25 normal Not Available [address], [address], 03/08/2025 07:31:42 03/07/20 25 03/08/2025 COMPR EHENS [place] METAB OLIC PANEL creatinine 1.00 mg/dL 0.70-1 .30 normal Not Available [address], [address], 03/08/2025 07:31:42 03/07/20 25 03/08/2025 COMPR EHENS [place] METAB OLIC PANEL eGFR 92 mL/mi n/1.7 3m2 > or = 60 normal Not Available [address], [address], 03/08/2025 07:31:42 03/07/20 25 03/08/2025 COMPR EHENS [place] METAB OLIC PANEL BUN/creatini ne ratio SEE NOTE: (calc ) 6-22 Not Repor cara: BUN and Creat inine are withi n refer ence range . Not Available [address], [address], 03/08/2025 07:31:42 03/07/20 25 03/08/2025 COMPR EHENS [place] METAB OLIC PANEL sodium 140 mmol/ L 135-14 6 normal Not Available [address], [address], 03/08/2025 07:31:42 03/07/20 25 03/08/2025 COMPR EHENS [place] METAB OLIC PANEL potassium 4.2 mmol/ L 3.5-5. 3 normal Not Available [facility] - [address], [address], 03/08/2025 07:31:42 03/07/20 25 03/08/2025 COMPR EHENS [place] METAB OLIC PANEL chloride 104 mmol/ L 98-110 normal Not Available [facility] [address], [address], 03/08/2025 07:31:42 03/07/20 25 03/08/2025 COMPR EHENS [place] METAB OLIC PANEL carbon dioxide 29 mmol/ L 20-32 normal Not Available [facility] [address], [address], 03/08/2025 07:31:42 03/07/20 25 03/08/2025 COMPR EHENS [place] METAB OLIC PANEL calcium 9.3 mg/dL 8.6-10 .3 normal Not Available [address], [address], 03/08/2025 07:31:42 03/07/20 25 03/08/2025 COMPR EHENS [place] METAB OLIC PANEL protein, total 7.3 g/dL 6.1-8. 1 normal Not Available [facility] [address], [address], 03/08/2025 07:31:42 03/07/20 25 03/08/2025 COMPR EHENS [place] METAB OLIC PANEL albumin 4.1 g/dL 3.6-5. 1 normal Not Available [address], [address], 03/08/2025 07:31:42 03/07/20 25 03/08/2025 COMPR EHENS [place] METAB OLIC PANEL globulin 3.2 g/dL_ (calc ) 1.9-3. 7 normal Not Available [facility] [address], [address], 03/08/2025 07:31:42 03/07/20 25 03/08/2025 COMPR EHENS [place] METAB OLIC PANEL albumin/glob ulin ratio 1.3 (calc ) 1.0-2. 5 normal Not Available [address], [address], 03/08/2025 07:31:42 03/07/20 25 03/08/2025 COMPR EHENS [place] METAB OLIC PANEL bilirubin, total 0.5 mg/dL 0.2-1. 2 normal Not Available [address], [address], 03/08/2025 07:31:42 03/07/20 25 03/08/2025 COMPR EHENS [place] METAB OLIC PANEL alkaline phosphatase 104 U/L 35-144 normal Not Available [address], [address], 03/08/2025 07:31:42 03/07/20 25 03/08/2025 COMPR EHENS [place] METAB OLIC PANEL AST 81 U/L 10-35 high Not Available [address], [address], 03/08/2025 07:31:42 03/07/20 25 03/08/2025 COMPR EHENS [place] METAB OLIC PANEL ALT 115 U/L 9-46 high Not Available [address], [address], 03/08/2025 07:31:42 03/07/20 25 03/08/2025 CBC (INCL UDES DIFF/ PLT) white blood cell count 5.4 thous and/u L 3.8-10 .8 normal Not Available [address], [address], 03/08/2025 07:31:43 03/07/20 25 03/08/2025 CBC (INCL UDES DIFF/ PLT) red blood cell count 4.93 francisco on/uL 4.20-5 .80 normal Not Available [address], [address], 03/08/2025 07:31:43 03/07/2003/08/2025 CBC (INCL UDES DIFF/ PLT) hemoglobin 15.2 g/dL 13.2-1 7.1 normal Not Available [address], [address], 03/08/2025 07:31:43 03/07/2003/08/2025 CBC (INCL UDES DIFF/ PLT) hematocrit 46.7 % 38.5-5 0.0 normal Not Available [address], [address], 03/08/2025 07:31:43 03/07/20 25 03/08/2025 CBC (INCL UDES DIFF/ PLT) MCV 94.7 fL 80.0-1 00.0 normal Not Available [address], [address], 03/08/2025 07:31:43 03/07/2003/08/2025 CBC (INCL UDES DIFF/ PLT) MCH 30.8 pg 27.0-3 3.0 normal Not Available [address], [address], 03/08/2025 07:31:43 03/07/2003/08/2025 CBC (INCL UDES DIFF/ PLT) MCHC 32.5 g/dL 32.0-3 6.0 normal For adult s, a sligh t decre ase in the calcu lated MCHC value (in the range of 30 to 32 g/dL) is most likel y not clini laci diazi lamont t; jonny er, it shoul d be inter prete d with cauti on in corre latio n with other red cell yojana eters and the patie nt's clini sofiya condi tion. Not Available [address], [address], 03/08/2025 07:31:43 03/07/20 25 03/08/2025 CBC (INCL UDES DIFF/ PLT) RDW 13.8 % 11.0-1 5.0 normal Not Available [address], [address], 03/08/2025 07:31:43 03/07/20 25 03/08/2025 CBC (INCL UDES DIFF/ PLT) platelet count 253 thous and/u L 140-40 0 normal Not Available [address], [address], 03/08/2025 07:31:43 03/07/20 25 03/08/2025 CBC (INCL UDES DIFF/ PLT) MPV 10.7 fL 7.5-12 .5 normal Not Available [address], [address], 03/08/2025 07:31:43 03/07/20 25 03/08/2025 CBC (INCL UDES DIFF/ PLT) absolute neutrophils 2522 cells /uL 1500-7 800 normal Not Available [address], [address], 03/08/2025 07:31:43 03/07/20 25 03/08/2025 CBC (INCL UDES DIFF/ PLT) absolute lymphocytes 2047 cells /uL 850-39 00 normal Not Available [address], [address], 03/08/2025 07:31:43 03/07/20 25 03/08/2025 CBC (INCL UDES DIFF/ PLT) absolute monocytes 643 cells /uL 200-95 0 normal Not Available [address], [address], 03/08/2025 07:31:43 03/07/20 25 03/08/2025 CBC (INCL UDES DIFF/ PLT) absolute eosinophils 167 cells /uL 15-500 normal Not Available [facility] [address], [address], 03/08/2025 07:31:43 03/07/20 25 03/08/2025 CBC (INCL UDES DIFF/ PLT) absolute basophils 22 cells /uL 0-200 normal Not Available [facility] [address], [address], 03/08/2025 07:31:43 03/07/20 25 03/08/2025 CBC (INCL UDES DIFF/ PLT) neutrophils 46.7 % normal Not Available [facility] [address], [address], 03/08/2025 07:31:43 03/07/20 25 03/08/2025 CBC (INCL UDES DIFF/ PLT) lymphocytes 37.9 % normal Not Available [address], [address], 03/08/2025 07:31:43 03/07/20 25 03/08/2025 CBC (INCL UDES DIFF/ PLT) monocytes 11.9 % normal Not Available [facility] [address], [address], 03/08/2025 07:31:43 03/07/2003/08/2025 CBC (INCL UDES DIFF/ PLT) eosinophils 3.1 % normal Not Available [facility] [address], [address], 03/08/2025 07:31:43 03/07/2003/08/2025 CBC (INCL UDES DIFF/ PLT) basophils 0.4 % normal Not Available [facility] [address], [address], 03/08/2025 07:31:43 03/07/20 25 03/08/2025 T4, FREE T4, free 1.0 NG/dL 0.8-1. 8 normal Not Available [facility] [place] [address] [place], [address], 03/08/2025 07:31:45 03/07/2003/08/2025 TSH TSH 1.75 mIU/L 0.40-4 .50 normal Not Available [facility] [address] [place], [address], 03/08/2025 07:31:46 03/07/20 25 03/08/2025 VITAM IN B12 vitamin B12 403 pg/mL 200-11 00 normal Not Available [facility] [address] [place], [address], 03/08/2025 07:31:47 03/07/2003/08/2025 PSA, TOTAL PSA, total 0.84 NG/mL < or = 4.00 normal The [...] This test was perfo rmed using the [employer] ns chemi lumin escen t metho d. Value s obtai lynn from diffe rent assay metho ds canno t be used inter clark eably . PSA level s, regar dless of value , shoul d not be inter prete d as absol tolowa dee-ni' evide nce of the prese nce or absen ce of disea se. Not Available [facility] [address] [place], [address], 03/08/2025 07:31:49 03/07/2003/08/2025 HEMOG LOBIN A1C hemoglobin A1C 5.6 %_of_ total _HGB <5.7 normal For the purpo se of scree lucas for the prese nce of diabe viola: <5.7% Consi stent with the absen ce of diabe viola 5.7-6 .4% Consi stent with incre ased risk for diabe viola (pred iabet es) > or =6.5% Consi stent with diabe viola This assay resul t is consi stent with a decre ased risk of diabe viola. Curre ntly, no conse nsus exist s regar belem use of hemog lobin A1c for diagn osis of diabe viola in child favian. Accor ding to Ameri can Diabe viola Assoc iatio n (ADA) guide lines , hemog lobin A1c <7.0% repre sents optim al contr ol in non-p regna nt diabe tic patie nts. Diffe rent metri cs may apply to speci fic patie nt popul ation s. Stand ards of Medic al Care in Diabe viola(A DA). Not Available [address] [place], [address], 03/08/2025 07:31:50 Result Notes None recorded. 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 3 14:14:52 Thoracic back pain 702002631 Active Not Available [facility] 3 14:14:52 Finding of body mass index 114023493 Active 2021 Not Available [facility] 3 14:14:52 Disorder of prostate 07500561 Active 2022 Not Available [facility] 3 14:14:52 Obesity 235207339 Active 2022 Not Available [facility] 3 14:14:52 Cervical radiculopathy 33654814 Active 2021 Not Available [facility] 3 14:14:52 Stress 15854263 Active Not Available 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 Active 2023 Caryn Richardson INFUSION PHARMACIST null, [facility] 4 10:47:27 Testosterone level below reference range 911400879 Active 2023 Caryn Richardson INFUSION PHARMACIST null, [facility] 4 11:26:41 Metabolic dysfunction-a ssociated steatohepatit is 357359947 Active 2024 Mendoza Gipson MD [address], [address], [place], [address] , [facility] 5 16:36:35 Steatotic liver disease 138872911 Active 2024 Mendoza Gipson MD [address], [place], [address] , [facility] 5 16:37:01 Problem Notes None recorded. Medical Equipment None Reported. [...] completed Not Available Not Available Not Available sulfamethox azole 800 mg-trimetho prim 160 mg tablet TAKE 1 TABLET BY MOUTH EVERY 12 HOURS UNTIL ALL TAKEN 02/05 completed Not Available Not Available Not Available oxycodone-a cetaminophe n 5 mg-325 mg tablet TAKE 1 TABLET BY MOUTH EVERY 4 TO 6 HOURS NEEDED FOR PAIN 02/05 completed Not Available Not Available Not Available [...] % 98 % 74 /min 97.4 [degF] 023702. 09 g 140 mm[Hg] 80 mm[Hg] Not Available [facility] 3 14:14:00 Date Recorded Body height Body mass index (BMI) Body weight Body temperature Heart rate Oxygen saturation Oxygen saturation in Arterial blood by Pulse oximetry Systolic blood pressure Diastolic blood pressure Provider Name and Address Organization Details Last Updated DateTime 3 170.18 cm 37.9 kg/m2 585057. 35 g 96.8 [degF] 98 /min 96 % 96 % 124 mm[Hg] 86 mm[Hg] Maggie Wagner MA [facility] 3 14:37:16 Date Recorded Body height Body mass index (BMI) Body weight Heart rate Body temperature Oxygen saturation Oxygen saturation in Arterial blood by Pulse oximetry Systolic blood pressure Diastolic blood pressure Provider Name and Address Organization Details Last Updated DateTime 4 170.18 cm 39.6 kg/m2 803599. 87 g 100 /min 97 [degF] 96 % 96 % 118 mm[Hg] 80 mm[Hg] Jessica Braswell [employer] [facility] 4 11:37:37 Date Recorded Body height Body mass index (BMI) Body weight Heart rate Body temperature Oxygen saturation Oxygen saturation in Arterial blood by Pulse oximetry Systolic blood pressure Diastolic blood pressure Provider Name and Address Organization Details Last Updated DateTime 4 170.18 cm 39.5 kg/m2 218832. 28 g 94 /min 97.2 [degF] 97 % 97 % 128 mm[Hg] 88 mm[Hg] LIZETTE Mendez [place] [employer] [facility] 4 11:36:48 Date Recorded Body height Body mass index (BMI) Body weight Heart rate Body temperature Oxygen saturation Oxygen saturation in Arterial blood by Pulse oximetry Systolic blood pressure Diastolic blood pressure Provider Name and Address Organization Details Last Updated DateTime 5 170.18 cm 40.8 kg/m2 141581. 81 g 80 /min 97 [degF] 98 % 98 % 132 mm[Hg] 80 mm[Hg] Jessica Braswell [employer] [facility] 5 10:33:57 Social History Question Answer Notes LastModified by Organizat ion Details LastModified Time Tobacco Smoking Status Never Smoker Not Available [facility] 01/25/2023 14:11:44 What Is Your Level Of Alcohol Consumption? Occasional [id number] Information not available 01/25/2023 In The 14 Days Before Symptom Onset, Have You Had Close Contact With A Laboratory-confir med COVID-19 While That Case Was Ill? No [id number] Information not available 01/25/2023 In The 14 Days Before Symptom Onset, Have You Had Close Contact With A Person Who Is Under Investigation For COVID-19 While That Person Was Ill? No [id number] Information not available 01/25/2023 Do You Or Have You Ever Used E-cigarettes Or Vape? 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 04/09/2021 [id number] Information not available 01/25/2023 Do You Or Have You Ever Used Smokeless Tobacco? Never Used Smokeless Tobacco [id number] Information not available 01/25/2023 Sex: Unknown Functional [...] HAVE YOU BEEN HOSPITALIZED OR SEEN IN [facility] IN THE PAST YEAR ? N [...] Immunizations Vaccine Type Date Status Note Provider [facility] e and Address Organization Details Recorded Time SARS-COV-2 (COVID-19) vaccine, UNSPECIFIED 1 completed Not Available [facility] 01/25/2023 14:17:35 SARS-COV-2 (COVID-19) vaccine, UNSPECIFIED 1 completed Not Available [facility] 01/25/2023 14:17:35 Influenza, high-dose, trivalent, PF 4 completed Not Available [facility] 01/25/2023 14:17:35 Past Encounters Encounter ID Performer Location Encounter Start Date Encounter Closed Date Diagnosis/Indication Diagnosis SNOMED-CT Code Diagnosis ICD10 Code Diagnosis Note [id number] [facility] [address] [address] 02/19/2021 00:00:00 02/19/2021 17:16:39 [id number] [facility] [address] [address] 04/09/2021 00:00:00 04/09/2021 17:16:53 [id number] Mendoza Gipson MD [facility] Gerardo vidal [address] [place] [address] , [place] [address] 04/27/2021 00:00:00 04/27/2021 15:29:24 [id number] Mendoza Gipson MD [facility] [address] [address] 10/27/2021 00:00:00 10/27/2021 17:25:05 [id number] Mendoza Gipson MD [facility] [address] [address] 04/27/2022 00:00:00 04/27/2022 17:12:49 [id number] Mendoza Gipson MD [facility] [address] [address] 11/30/2022 00:00:00 11/30/2022 17:12:15 [id number] Mendoza Gipson MD [facility] [address] [address] 06/12/2023 14:27:12 06/12/2023 15:03:03 Adult health examination 570397788 Z00.00 Depression screening 171 983622 Z13.31 Gastroesop hageal reflux disease 758266111 K21.9 Obstructiv e sleep apnea syndrome 18382191 G47.33 Obesity 572968304 E66.9 [id number] Mendoza Gipson MD [facility] [address] [address] 02/07/2024 11:18:46 02/07/2024 12:03:22 Obstructive sleep apnea syndrome 18998363 G47.33 Gastroesop hageal reflux disease 473343287 K21.9 Testicular hypofunction 845432084 E29.1 Obese class II 401410509 1 05218 E66.9 Disorder of prostate 302 02553 N42.9 Screening for cardiovascular system disease 456248500 Z13.6 [id number] Mendoza Gipson MD S_[facility] Internal Med [facility] [address] [address] 08/07/2024 11:32:51 08/07/2024 12:05:12 Adult health examination 417756080 Z00.00 Depression screening 171 208046 Z13.31 Obstructiv e sleep apnea syndrome 10530635 G47.33 Testicular hypofunction 426469839 E29.1 Gastroesop hageal reflux disease 805706027 K21.9 Obese class II 781349931 1 42628 E66.9 [id number] Mendoza Gipson MD [facility] [address] [facility] [address] [place] [address] 02/05/2025 10:33:01 02/05/2025 10:49:57 Gastroesophageal reflux disease 171859203 K21.9 Testicular hypofunction 443465426 E29.1 Obesity 488894120 E66.9 Disorder of prostate 302 [address]245 N42.9 Screening for cardiovascular system disease 997785274 Z13.6 Health Concerns Section Related Observation LastModified by Organization Detai ls LastModified Time None Recorded Concern Status LastModified by Organization Details LastModified Time None Recorded Advance Directives Directive None Recorded Payers Encounter Date Sequence Insurance Name Policy Number Policy Billingsley Covered Member ID Billingsley Member ID Guarantor Name 06/12/2023 2 [facility] [id number] Alex Loo [id number] Alex Loo 06/12/2023 1 [email or web address] - [employer] [place] [id number] Alex Loo [id number] Alex Loo 02/07/2024 1 [email or web address] - [employer] ([place]) [id number] Alex Loo [id number] Alex Loo 08/07/2024 1 [email or web address] [place] [employer] [place] [id number] Alex Loo [id number] Alex Loo 02/05/2025 1 [email or web address] - [employer] [place] [id number] Alex Loo [id number] Alex Loo Notes Date Note Type Note Provider Name and Address Organization Details Recorded Time text/html Patient Name: Alex Popeate Of Service: [...] nightly basis . Overall has shown considerable improvement.Harrison Sleepiness ScaleSitting and ReadinWatching TV: 1Sitting Inactive [...] offered to be evaluated and instructed by plastic sheeting cutter on weight loss diet.Medication List Reviewed and Reconciled 06/12/2023Multivitamin DailyCpap As DirectedOmeprazole 20 MG (CAPSULE, DELAYED REL PELLETS - ORAL) One DailyVaccination and Dexqcqzkeong1964-02 Covid PfizerSurgical HistoryPlanter Fascitis, Bilateral Inguinal HerniaPreventative Testing Confirmed by Our Iafvcfk9912/08/2022 ALBUMIN 4.6 G/DL12/08/2022 PSA 0.59 NG/ML11/10/2021 COLOGUARD 11/10/2024Social HistoryDoes not current smoke. Stopped 2003. Smoke 1/2 pack daily for 10 yearsDrinks socially up to 12 pack per weekWorks as a steel workerFamily HistoryMother 72 years old and in good healthFather 74 lymphoma and CKDOne sister living and in good health Mendoza Gipson MD [address], [address], [facility] 06/12/2023 15:01:15 4 text/html Patient Name: Alex Popemeche Of Service: Monday ( 02.07.2024 ): 1975 [...] nightly basis . Overall has shown considerable improvement.Harrison Sleepiness ScaleSitting and ReadinWatching TV: 1Sitting Inactive [...] offered to be evaluated and instructed by plastic sheeting cutter on weight loss diet. Active Medication ListMultivitamin DailyCpap As DirectedOmeprazole 20 MG (CAPSULE, DELAYED REL PELLETS - ORAL) One Daily Vaccination and Oevrykdrphgy6084-45 [facility] Vdylokw4031-55 Morro Qfocoftx8504-20 Bilateral Inguinal Hernia Preventative Funhaxk2712/08/2022 ALBUMIN 4.6 G/DL N012/08/2022 PSA 0.59 NG/ML N101/11/2021 COLOGUARD 11/10/2024 Social HistoryDoes not current smoke. Stopped 2003. 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 Overall has shown considerable improvement.Harrison Sleepiness ScaleSitting and ReadinWatching TV: 1Sitting Inactive [...] offered to be evaluated and instructed by plastic sheeting cutter on weight loss diet. Active Medication ListMultivitamin DailyCpap As DirectedOmeprazole 20 MG (CAPSULE, DELAYED REL PELLETS - ORAL) One Daily Vaccination and Evuqftksuvuo3679-80 [facility] Uuekywn1310-39 Planter Bbaojliu9677-68 Bilateral Inguinal Hernia Preventative Testing( ) 02/19/2024 Albumin 4.5 G/DL N( ) 02/19/2024 PSA 0.64 NG/ML N 02/18/2025( ) 11/10/2021 Cologuard 11/10/2024 Social HistoryDoes not current smoke. Stopped 2003. Smoke 1/2 pack daily for 10 yearsDrinks socially up to 12 pack per weekWorks as a bog worker Family HistoryMother 72 years old and [...] 0.60-1.29 MG/DLEGFR 102 > OR = 60 ML/MIN/1.22K5SDZFZIVQF, TOTAL 0.3 0.2-1.2 MG/DLALKALINE PHOSPHATASE 107 36-130 [...] (DIALYSIS) AND TOTAL,MS Date: 02/19/2024TESTOSTERONE, TOTAL, [place] [phone] NG/DLTESTOSTERONE, FREE 37 35.0-155.0 PG/MLTSH Date: 02/19/2024TSH 1.16 0.40-4.50 MIU/LVITAMIN B12 Date: 02/19/2024VITAMIN B12 074 473-2870 PG/ML Mendoza Gipson MD [address], [place], [address], [place] [facility] 08/07/2024 12:02:26 5 text/html Patient Name: Alex Lugo Of Service: Monday ( 02.05.2025 ): 1975 Age: 49 There has been approximately a 8.5 lb weight gain since 08/07/2024. This represents approximately a 3.4% change in weight. Weight change attributable to lifestyle changes. Vital Signs:Blood Pressure: Sitting Rt. Arm 132/80Pulse: Sitting 80 /min and RegularRespiratory Rate: 16Height 67 in or 1.7 mWeight 260.5 lb or 118.2 kgBMI 40.8Temperature: 97 F or 36.1 CPulse Oximetry: 98 % at rest on no oxygen Chief Complaint: Addressed in HPI Problems or conditions discussed in the HPI were the only ones reviewed during the encounter.Only social and family history addressed in the HPI were reviewed during this encounter. Attendant(s): NoneConstitutional and Systemic Symptoms:none Medication Reconciliation: from medication list. History of Present Illness #1. Hx of esophageal reflux currently stable. [...] with chronic prolonged use of PPI inhibitors. #2. Testicular Hypofunction: Stable. Libido and energy levels are good. No significant problems with performing daily activities. Taking medication: no medication. No other systemic complaints related to hypogonadism. #3. Sleep Apnea: Type: STAN Current doing well. No significant daytime somnolence or problems performing daily chores. Using CPAP on nightly basis . Overall has shown considerable improvement.Harrison Sleepiness ScaleSitting and ReadinWatching TV: 1Sitting Inactive in a Public Place: 2Passenger in a Car: 1Lying Down in Afternoon: 2Sitting and Talking to someone: 0Sitting quietly after lunch: 1In a car while stopped or drivinScore Interpretation: 8-9 Average amount of daytime sleepiness #4. Hx of obesity. Currently Class 3 Obesity NV > 40. Has tried numerous dietary support and supplements with no benefit. Instructed on the health consequences of the obese status particularly cancer - diabetes and heart disease. Discussed other modalities of weight loss no . Potential candidate for bariatric surgery: Yes but does no wish to pursue. Wishes to be evaluated by Dietary: No and was offered to be evaluated and instructed by plastic sheeting cutter on weight loss diet. Active Medication ListMultivitamin DailyCpap As DirectedOmeprazole 20 MG (CAPSULE, DELAYED REL PELLETS - ORAL) One Daily Vaccination and Immunization(X) 2021-06 [facility] Dwsgtle5406-54 Left Mendez's Czchmdq9279-81 Planter Qjwxltqn6847-08 Bilateral Inguinal Hernia Preventative Testing( ) 02/19/2024 Albumin 4.5 G/DL N( ) 02/19/2024 PSA 0.64 NG/ML N 02/18/2025(X) 11/10/2021 Cologuard 11/10/2024 Social HistoryDoes not current smoke. Stopped 2003. Smoke 1/2 pack daily for 10 yearsDrinks socially up to 12 pack per weekWorks as a bog worker Family HistoryMother 73 years old and in good healthFather 74 lymphoma and CKDOne sister living and in good health Mendoza Gipson MD [address] [facility], [facility] [address], [place], [address], [facility] [facility] [employer] 02/05/2025 10:43:08
--- OUTSIDE RECORDS SUMMARY | 2025-04-02 07:06 | XMS_ITS | Continuity of Care Document ---
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 Name Role Phone Lily BECERRA, [place], Michael Unavailable Unavailable Procedures Procedure Date THERAPEUTIC EXERCISES NEUROMUSCULAR RE-ED HOT/COLD PACK ELECTRIC STIMULATION UNATT PT RE-EVALUATION THERAPEUTIC EXERCISES NEUROMUSCULAR RE-ED HOT/COLD PACK ELECTRIC STIMULATION UNATT THERAPEUTIC EXERCISES NEUROMUSCULAR RE-ED HOT/COLD PACK ELECTRIC STIMULATION UNATT THERAPEUTIC EXERCISES NEUROMUSCULAR RE-ED HOT/COLD PACK ELECTRIC STIMULATION UNATT THERAPEUTIC EXERCISES NEUROMUSCULAR RE-ED HOT/COLD PACK ELECTRIC STIMULATION UNATT THERAPEUTIC EXERCISES NEUROMUSCULAR RE-ED HOT/COLD PACK ELECTRIC STIMULATION UNATT THERAPEUTIC EXERCISES NEUROMUSCULAR RE-ED HOT/COLD PACK ELECTRIC STIMULATION UNATT THERAPEUTIC EXERCISES NEUROMUSCULAR RE-ED HOT/COLD PACK ELECTRIC STIMULATION UNATT THERAPEUTIC EXERCISES NEUROMUSCULAR RE-ED HOT/COLD PACK ELECTRIC STIMULATION UNATT PT EVALUATION THERAPEUTIC EXERCISES HOT/COLD PACK ELECTRIC STIMULATION UNATT Electrodes Shoulder Meliza Advance Directives Directive Yes / No Effective Date File Name No Information Encounters Encounter Description Practice Location Reason(s) For Visit Diagnoses Date Provider Providers Copied on Encounter [facility] [address] [place] [address], [place], [place], [id number], [phone] Eunice No Information 3201 3 Lily Michael. [address] [place] [address], [address], [place], [place], [facility], . tel: [phone] [facility] [address] [place] [address], [place], [place], [id number], [phone] Eunice No Information 3 Lily Michael. [address] [place] [address], [facility] [address], [place], [facility], . tel: [phone] Referring Provider: Nataliya Carroll [facility] [address], [place], [place], [facility]. tel:[phone] [facility] [address] [place] [address], [place], [place], [id number], tel:[phone] Eunice No Information 3 Lily Michael. [address] [place] [address], [address], [place], [place], [facility], . tel:[phone] Referring Provider: Nataliya Carroll [facility] [address], [place], [address]. tel:[phone], [place], [place], [id number], tel:[phone] Eunice No Information 3 Illy Michael. [address] [place] [address], [address], [place], [facility], . tel:[phone] Referring Provider: Nataliya Carroll [facility] [address], [place], [address]. tel:[phone], [place], [place], [id number], [place] tel:[phone] Eunice No Information 4-201 3 Lily Michael. [address] [place] [address], [address], [place], [facility], . tel: [phone] Referring Provider: Meir Gunn, [address] [facility] [address], [place], [address]. tel:[phone] [address], [place], [place], [id number], [place] tel:[phone] Eunice No Information 2-201 3 Lily Michael. [address] [place] [address], [address], [place], [facility], . tel: [phone] Referring Provider: Nataliya Carroll [facility] [address], [place], [address]. tel:[phone] [facility] [address] [place], [place] [address] [address], [place], [place], [id number], tel:[phone] Eunice No Information 9201 3 Lily Michael. [address] [place] [address], [address], [place], [facility], [place]. tel: [phone] Referring Provider: Meir Gunn [address] [facility] [address], [place], [address]. tel:[phone] [facility] [address] [facility], [place], [place], [id number], [place] tel:[phone] Eunice No Information 8-201 3 Lily Michael. [address] [place] [address], [address], [place], [facility], [place]. tel: [phone] Referring Provider: Nataliya Carroll [facility] [address], [place], [address]. tel:[phone] [facility], [address] [facility] [address], [place], [place], [id number], tel:[phone] Eunice No Information 5-201 3 Lily Michael. [address] [place] [address], [facility] [address], [place], [facility], . tel:[phone] Referring Provider: Meir Gunn [address] [facility] [address], [place], [address]. tel:[phone], [id number], tel:[phone] Eunice No Information 3 Lily Michael. [address] [facility], [address], [place], [facility], . [phone] Referring Provider: Meir Gunn [address] [facility] [facility] [address], [place], [address]. tel:[phone], [id number], tel:[phone] E[place] Pain in joint involving shoulder region 3 Lily Michael. [address] [place] [address], [address], [place], [facility], . tel:[phone] Referring Provider: Meir Gunn [address] [facility] [address], [place], [address]. tel:[phone] Family History Family Member Type Diagnosis Age At Onset No Information Payers Payer name Insurance type Covered green party ID Authoriza tion(s) No Information Social History Type Description Quantity Date Captured Comments Sex Male Smoking Status No Information Chief Complaint And Reason For Visit No Information Reason For Referral Reason For Referral No Information History Of Present Illness Encounter Date Complaint History Of Prese nt Illness No Information Functional Status Date Functional Assessmen t No Information Instructions Date Instruction Additional Infor mation No Information Assessments Type Assessment Date No Information Patient Care Teams Name Effective Dates (start - stop) Status Members No Information
== END 2025-04-02 07:01 | disposition home or self-care (01) ==
PROVIDERS: PCP Internal Medicine; Visit Provider Internal Medicine
DX: K76.0 Fatty (change of) liver, not elsewhere classified (principal)
CPT/HCPCS: 76705